=== PATIENT | female | born 1980 | race Caucasian/White ===

== ENCOUNTER 2017-05-14 08:55 | Outpatient (CLI) | payer OTHER ==
--- NOTE | 2017-05-14 09:33 | MMO ---
RIGHT UNILATERAL DIAGNOSTIC MAMMOGRAM: HISTORY: Followup 3-4 mm nodular density upper outer right breast. COMPARISON: 11/10/16 study. FINDINGS: A small nodular density within the right breast was stable. Scattered fibroglandular changes are noted. No suspicious calcifications. IMPRESSION: BI-RADS category 2 - benign findings. POS: [facility]
== END 2017-05-14 08:56 | disposition home or self-care (01) ==
LOC: MAMMO 08:55
PROVIDERS: ATTEND Family Medicine
DX: R92.8 Other abnormal and inconclusive findings on diagnostic imaging of breast (principal)
CPT/HCPCS: G0206-RT

== ENCOUNTER 2019-04-04 10:29 | Outpatient (CLI) | payer OTHER ==
--- NOTE | 2019-04-04 12:16 | ULT ---
OB ULTRASOUND: HISTORY: Assess anatomy. FINDINGS: There is a single viable intrauterine . Gestational age by ultrasound is 19 weeks 0 days. BIOMETRY MEASUREMENTS: BPD: 18 weeks 5 days HC: 18 weeks 6 days AC: 19 weeks 0 days FL: 19 weeks 3 days EFW: 275 g (19 weeks 5 days) HEART RATE: 147 beats per minute PLACENTA: Posterior. PRESENTATION: Vertex. AMNIOTIC FLUID: Adequate. WANG recorded at 11.36 cm. CERVICAL LENGTH: 4.3 cm. anatomy evaluated included the intracranial contents, the four chambered heart, the stomach, th e kidneys, the cord insertion, the bladder, the spine, the lips, the nose, the extremities and the th ree vessel cord. No abnormality identified. IMPRESSION: A 25-hkay-9-day gestation by ultrasound measurement. No abnormality identified. POS: [facility]
== END 2019-04-04 10:30 | disposition home or self-care (01) ==
LOC: BICULT 10:29
PROVIDERS: ATTEND Family Medicine
DX: Z34.82 Encounter for supervision of other normal pregnancy, second trimester (principal); Z3A.19 19 weeks gestation of pregnancy
CPT/HCPCS: 76805

== ENCOUNTER 2019-08-15 05:09 | Inpatient (IN) | payer OTHER ==
[2019-08-15] MEDS ORDERED: Bicitra 30 ML UDCUP PO SCH (05:40)
[2019-08-15] MEDS ORDERED: Ondansetron PF 4 MG/2 ML Vial IVP PRN ×3 (05:40→10:48)
[2019-08-15] MEDS ORDERED: hydrALAZINE 20 MG/ML VIAL SLOW IVP PRN ×2 (05:40→10:48)
[2019-08-15] MEDS ORDERED: Promethazine HCl 25 MG/ML VIAL IM PRN ×2 (05:40→08:56)
[2019-08-15] MEDS ORDERED: CEFAZOLIN 2 GM in Premix Bag 1 BAG IVPB SCH (05:40)
[2019-08-15] MEDS: Lactated Ringer's 1,000 ML IV SCH ×2 (05:50→07:17)
[2019-08-15 05:53] VITALS: BMI 42.2
[2019-08-15 06:04] LABS: Hemoglobin 11.2 g/dL (12.0-16.0); Mean Corpuscular HGB CONC 33.8 g/dL (32.0-36.0); Mean Corpuscular Hemoglobin 27.8 pg (27.0-31.0); Mean Corpuscular Volume 82.3 fL (78.0-98.0); Mean Platelet Volume 11.2 fL (7.4-10.4); Platelet Count 195 thou/uL (130-400); RBC Distribution Width 13.7 % (11.5-14.5); Red Blood Cell (RBC) Count 4.01 mill/uL (4.20-5.40); White Blood Cell (WBC) Count 8.8 thou/uL (4.8-10.8)
[2019-08-15 06:39] LABS: ALT (SGPT) 9 U/L (8-55); AST (SGOT) 13 U/L (5-34); Albumin 3.3 g/dL (3.5-5.0); Alkaline Phosphatase 272 U/L (40-110); Anion Gap 15 mmol/L (10-20); BUN (Urea Nitrogen) 12 mg/dL (7.0-18.7); Bilirubin, Total 0.4 mg/dL (0.2-1.2); Calc. Creatinine Clearance 206 mL/min (70-130); Calcium 8.6 mg/dL (7.8-10.44); Carbon Dioxide 19 mmol/L (22-29); Chloride 106 mmol/L (98-107); Estimated GFR-MDRD Greater than 90; Globulin 3.1 g/dL (2.4-3.5); Glucose 82 mg/dL (70-105); Protein, Total 6.4 g/dL (6.0-8.3); Sodium 136 mmol/L (136-145)
[2019-08-15 06:40] LABS: HBSAg Index 0.23 S/CO (0-0.99); Hep B Surf Ag Non-Reactive S/CO (NonReactive)
[2019-08-15 06:46] LABS: Syphilis Antibody Nonreactive (Nonreactive); Syphilis Antibody Index 0.06 S/CO (<1.00 Non-Reactive)
[2019-08-15] MEDS ORDERED: Ondansetron PF 4 MG/2 ML Vial ONE ×2 (07:25→10:38)
[2019-08-15] MEDS ORDERED: MORPHINE 5 MG/10 ML PF VIAL ONE (07:25)
[2019-08-15] MEDS ORDERED: Oxytocin 10 UNITS/ML VIAL ONE (07:25)
[2019-08-15] MEDS ORDERED: PHENYLEPHRINE-NS 100 MCG/ML 10 ML SYRINGE ONE (07:46)
[2019-08-15] MEDS ORDERED: Lidocaine 1% (PF) 30 ML VIAL ONE (08:25)
[2019-08-15] MEDS ORDERED: Lidocaine 1% PF 5 ML VIAL ONE (08:25)
[2019-08-15] MEDS ORDERED: Methylene Blue 50 MG/10 ML AMPUL FS SCH (08:30)
[2019-08-15] MEDS ORDERED: Ketorolac Tromethamine 30 MG/ML VIAL IVP PRN (08:56)
[2019-08-15] MEDS ORDERED: Promethazine HCl 25 MG SUPP PR PRN (08:56)
[2019-08-15] MEDS ORDERED: Naloxone HCl 0.4 mg/ml Vial IV PRN (08:56)
[2019-08-15] MEDS ORDERED: HYDROmorphone 2 MG/ML VIAL SLOW IVP PRN (08:56)
[2019-08-15] MEDS ORDERED: diphenhydrAMINE 50 MG/ML VIAL IVP PRN (08:56)
[2019-08-15] MEDS ORDERED: Ondansetron HCl/PF 4 MG/2 ML Vial IVP PRN (08:56)
[2019-08-15] MEDS ORDERED: L&D-Morphine 4 MG/ML VIAL SLOW IVP PRN (08:56)
[2019-08-15] MEDS ORDERED: Naloxone HCl 0.4 mg/ml Vial IVP PRN ×2 (08:56)
[2019-08-15] MEDS ORDERED: Ketorolac Tromethamine 30 MG/ML VIAL IVP SCH (09:00)
[2019-08-15] MEDS ORDERED: Communication Order-Pharmacy FS SCH (09:00)
--- NOTE | 2019-08-15 09:33 | OP ---
DATE OF PROCEDURE: 08/15/2019 Relief of SIGHTER, co-surgeon, Dr. Alon Cha. Procedure: assist with Dr Rochelle Denton Location: L&D OR Procedure assist: Primary hysterotomy extension closure and bladder integrity test with back-fill DESCRIPTION OF PROCEDURE: In brief, I arrived from my call shift at 0800. At 0807, I arrived in the OR in Labor and delivery where Dr. Alon Cha, whom I was relieving, was assisting with a . When I arrived, the baby had been delivered and was with the mother. The hysterotomy was closed except for an apparent 3 cm left inferior hysterotomy extension. I scrubbed in at this point to complete the closure. We mobilized the bladder sufficiently inferiorly and I closed the extension in the usual fashion with running nonlocking suture in a two-layer closure. As this was inferior, I elected to check the bladder integrity. Not having indigo carmine in the room, I elected for sterile milk. Four vials of sterile milk (approximately 220 to 240 mL) was instilled into the bladder through the Chandler by back instillation. The bladder dome was noted to be far away from the hysterotomy closure and after confirming that there was no possible violation, the bladder was drained of the sterile milk application. After confirming hemostasis, we decided to place Avitene as a conservative measure just to ensure no leakage of hysterotomy vessels after our abdominal wall closure. After the Avitene was placed, we noticed hemostasis. The abdominal wall was then closed in the usual fashion. It is important to note that I closed my side of the patient's fascia (the patient' s left side as I was on her right) in the usual fashion using 0 Vicryl in a running nonlocking fashion. These independent sutures of the right and left fascia were tied in the midline by Dr. Denton. After fascial closure, I removed myself from the OR table. Job ID: [id number] [facility]
[2019-08-15] MEDS ORDERED: Bisacodyl 10 MG SUPP PR PRN (10:48)
[2019-08-15] MEDS ORDERED: Lanolin Ointment 7 GM TUBE TOP PRN (10:48)
[2019-08-15] MEDS ORDERED: Acetaminophen 325 MG TAB PO PRN (10:48)
[2019-08-15] MEDS ORDERED: diphenhydrAMINE 25 MG CAP PO PRN (10:48)
[2019-08-15] MEDS ORDERED: NS / Oxytocin 40 units/1000ml 1,000 ML ONE (11:26)
[2019-08-15] MEDS: Simethicone Chewable 80 MG TAB PO PRN ×2 (13:06→21:42)
--- NOTE | 2019-08-15 14:40 | OP ---
DATE OF PROCEDURE: 08/15/2019 PREOPERATIVE DIAGNOSIS: 1. Term intrauterine with previous section x2. 2. Chronic hypertension. 3. Gestational diabetes. ASSISTANTS: Dr. Cha substituted and with Dr. Mc. SECOND CARPENTER'S ASSISTANT: Tiny Johnson, MS-3 PROCEDURE PERFORMED: Repeat low transverse section. ANESTHESIA: Spinal anesthetic. DESCRIPTION OF PROCEDURE: Lilia is a 39-year-old white female patient with previous section x2. Taken to the operating room after consents were signed. Spinal anesthetic was placed. The patient was placed in supine position. A wedge was placed under her right flank. The abdomen was prepped and draped in the usual sterile technique. A Pfannenstiel incision was made through the old scar. Skin opened with sharp dissection. Fascia opened with sharp dissection. Peritoneum opened with sharp and blunt dissection. Noted that the abdomen was still with a gravid uterus. There have been moderate scarring on entry into the abdomen. An Bravo O retractor was placed. There were no appreciable adhesions. A low-transverse incision was made on the uterus. Membranes were ruptured. Clear fluid was encountered and a viable female was delivered from vertex presentation without difficulty. breathed and cried spontaneously. Cord was clamped after approximately 30 seconds and cut. was handed to the care of the Neonatology team. Cord blood was obtained and the placenta was delivered with gentle traction and appeared intact. Ring forceps were placed over the hysterotomy edges, noted that the uterine segment was extremely thin on the inferior aspect of the incision as well as a left uterine extension. Once this area was well visualized, the uterus was closed in continuous fashion using 0 Monopril. Noted that due to the extremely thin uterine lower uterine segment, multiple sutures were placed after retracting the bladder flap to note good alignment of uterine anatomy and good hemostasis. Avitene was placed for additional hemostasis, pressure was applied, and 120 mL of sterile milk was instilled into the bladder for backfill to verify integrity of the bladder. This was then drained from the bladder and again examination of the uterine incision noted good hemostasis. An Bravo O retractor had been placed and this was subsequently removed and the fascia was closed in continuous fashion using 0 Vicryl. The subcutaneous tissue was then approximated in a running fashion of 2-0 plain and homero were applied to the skin. The wound VAC was then applied along with a dressing. The patient tolerated the procedure well to go to recovery room in good condition. The baby is a viable female , weight 6 pounds 4 ounces, Apgars 8 at 1 minute, 9 at 5 minutes, and level one nursery without complications. QBL is pending at this time. EBL approximately 700 mL. Job ID: [id number]
[2019-08-15] MEDS: Docusate Calcium (SURFAK) 240 MG CAP PO SCH (21:42)
--- NOTE | 2019-08-15 22:49 | PDOC.EVN ---
Event Note - Event Note Event Note: OBGYN Op Note Clarification: While I dictated 4 vials of sterile milk back filled into the bladder via the thomas, I believe only three were used. See nurse's intraop noted for details for that volume.
[2019-08-15] MEDS: Ferrous Sulfate 325 MG TAB PO SCH (22:58)
[2019-08-16] MEDS: Acetaminophen/Codeine 30-300mg Tablet PO PRN ×2 (01:34→09:30)
[2019-08-16 06:43] LABS: Hemoglobin 9.7 g/dL (12.0-16.0); Mean Corpuscular HGB CONC 33.9 g/dL (32.0-36.0); Mean Corpuscular Hemoglobin 28.5 pg (27.0-31.0); Mean Corpuscular Volume 84.1 fL (78.0-98.0); Mean Platelet Volume 11.1 fL (7.4-10.4); Platelet Count 149 thou/uL (130-400); RBC Distribution Width 13.6 % (11.5-14.5); Red Blood Cell (RBC) Count 3.38 mill/uL (4.20-5.40); White Blood Cell (WBC) Count 8.8 thou/uL (4.8-10.8)
[2019-08-16] MEDS ORDERED: Sodium Chloride 0.9% 0 ML ONE (07:52)
[2019-08-16] MEDS: Ibuprofen 800 MG TAB PO SCH ×3 (07:58→21:52)
[2019-08-16] MEDS: Simethicone Chewable 80 MG TAB PO PRN ×2 (09:30→21:53)
[2019-08-16] MEDS: Ferrous Sulfate 325 MG TAB PO SCH ×2 (09:30→21:52)
[2019-08-16] MEDS: Docusate Calcium (SURFAK) 240 MG CAP PO SCH ×2 (09:30→21:52)
[2019-08-16] MEDS: Prenatal Vitamin 1 TAB PO SCH (10:19)
[2019-08-16] MEDS: HYDROcodone/Acetaminophen 5/325 mg Tablet PO PRN (22:04)
[2019-08-17] MEDS: Ibuprofen 800 MG TAB PO SCH ×3 (04:29→22:22)
[2019-08-17] MEDS: HYDROcodone/Acetaminophen 5/325 mg Tablet PO PRN ×3 (04:30→23:16)
[2019-08-17] MEDS: Ferrous Sulfate 325 MG TAB PO SCH ×2 (09:26→20:30)
[2019-08-17] MEDS: Simethicone Chewable 80 MG TAB PO PRN ×3 (09:26→20:30)
[2019-08-17] MEDS: Prenatal Vitamin 1 TAB PO SCH (09:26)
[2019-08-17] MEDS: Docusate Calcium (SURFAK) 240 MG CAP PO SCH ×2 (09:26→20:31)
[2019-08-17 20:39] VITALS: TEMP 98.7
[2019-08-18] MEDS: HYDROcodone/Acetaminophen 5/325 mg Tablet PO PRN (05:58)
[2019-08-18] MEDS: Ibuprofen 800 MG TAB PO SCH (05:58)
[2019-08-18 08:38] VITALS: BP 143/72
[2019-08-18] MEDS: Prenatal Vitamin 1 TAB PO SCH (09:55)
[2019-08-18] MEDS: Docusate Calcium (SURFAK) 240 MG CAP PO SCH (09:55)
[2019-08-18] MEDS: Ferrous Sulfate 325 MG TAB PO SCH (09:56)
== END 2019-08-18 13:30 | disposition home or self-care (01) | DRG 787 ==
LOC: L&D 05:09 → 3SW 11:07
PROVIDERS: ADMIT Family Medicine; ATTEND Family Medicine
PROC: 10D00Z1 Extraction of Products of Conception, Low, Open Approach (ICD-10-PCS; principal; 2019-08-15)
PROC: 0UT90ZZ Resection of Uterus, Open Approach (ICD-10-PCS; 2019-08-15)
DX: O34.211 Maternal care for low transverse scar from previous cesarean delivery (principal); O10.02 Pre-existing essential hypertension complicating childbirth; O24.429 Gestational diabetes mellitus in childbirth, unspecified control; Z3A.38 38 weeks gestation of pregnancy; Z37.0 Single live birth; Z88.8 Allergy status to other drugs, medicaments and biological substances
CPT/HCPCS: 36415; 80053; 85027; 86780; 86850; 86900; 86901; 87340; J0690; J1200; J2001; J2274; J2310; J2405; J2550; J2590

== ENCOUNTER 2020-08-27 16:21 | Outpatient (CLI) | payer BC, MEDICAID ==
--- NOTE | 2020-08-27 16:59 | RAD ---
RIGHT FOOT THREE VIEWS: 08/27/20 HISTORY: Injury to right foot and ankle. Fell and twisted her foot. There is an avulsive type injury off the dorsal side of the navicular at the talonavicular joint whic h could be acute. There are calcaneal spurs noted. No other abnormalities. IMPRESSION: Avulsion fracture from the dorsum of the navicular. POS: [facility]
--- NOTE | 2020-08-27 17:04 | RAD ---
RIGHT ANKLE THREE VIEWS: 08/27/20 HISTORY: Ankle injury. There is avulsive type injury from the dorsum of the navicular at the talonavicular joint which coul d be acute. No ankle joint effusion is seen. Prominent calcaneal spurs are present. IMPRESSION: Avulsion fracture from the dorsum of the navicular. POS: [facility]
== END 2020-08-27 16:22 | disposition home or self-care (01) ==
LOC: BICRAD 16:21
PROVIDERS: ATTEND Family Medicine
DX: S99.911A Unspecified injury of right ankle, initial encounter (principal); S92.251A Displaced fracture of navicular [scaphoid] of right foot, initial encounter for closed fracture

== ENCOUNTER 2021-02-03 06:19 | Day surgery (SDC) | payer OTHER ==
[2021-01-31 09:54] VITALS: BMI 48.0
[2021-02-03] MEDS ORDERED: Lidocaine Viscous Sol 2% 15 ml UD Cup ONE (07:44)
[2021-02-03] MEDS ORDERED: PROPOFOL 200 MG/20 ML VIAL ONE (08:04)
[2021-02-03] MEDS ORDERED: Lidocaine 1% PF 5 ML VIAL ONE (08:04)
== END 2021-02-03 09:10 | disposition home or self-care (01) ==
LOC: SDC 06:19
PROVIDERS: ATTEND Internal Medicine
PROC: 0DB68ZX Excision of Stomach, Via Natural or Artificial Opening Endoscopic, Diagnostic (ICD-10-PCS; principal; 2021-02-03)
DX: K31.89 Other diseases of stomach and duodenum (principal); K21.9 Gastro-esophageal reflux disease without esophagitis; R13.10 Dysphagia, unspecified; M19.90 Unspecified osteoarthritis, unspecified site; E66.9 Obesity, unspecified; Z68.42 Body mass index [BMI] 45.0-49.9, adult; Z79.899 Other long term (current) drug therapy; Z88.1 Allergy status to other antibiotic agents; Z98.84 Bariatric surgery status
CPT/HCPCS: 88305; 88312; J2704

== ENCOUNTER 2021-05-14 12:15 | Inpatient (IN) | payer OTHER, BC ==
[2021-05-19] MEDS ORDERED: ceFAZolin 2 GM/DEX 5% 100 ML BAG ONE (07:49)
[2021-05-19] MEDS ORDERED: Heparin 5,000 UNITS/ML VIAL ONE (07:49)
[2021-05-19] MEDS ORDERED: Lidocaine 1% w/Epinephrine 1:100K 20 ML VIAL ONE (08:38)
[2021-05-19] MEDS ORDERED: Bupivacaine 0.25% HCL 30 ML VIAL ONE (08:38)
[2021-05-19] MEDS ORDERED: Fentanyl 100 MCG/2 ML VIAL ONE ×4 (08:41→12:52)
[2021-05-19] MEDS ORDERED: PHENYLEPHRINE-NS 100 MCG/ML 10 ML SYRINGE ONE (08:55)
[2021-05-19] MEDS ORDERED: Succinylcholine 200 MG/10 ml SYRINGE FS ONE (08:55)
[2021-05-19] MEDS ORDERED: Lidocaine 1% PF 5 ML VIAL ONE (08:55)
[2021-05-19] MEDS ORDERED: Glycopyrrolate 0.2 MG/ML 5 ML SYRINGE ONE (08:55)
[2021-05-19] MEDS ORDERED: Dexamethasone 20 MG/5 ML VIAL ONE (08:55)
[2021-05-19] MEDS ORDERED: Rocuronium Bromide 10 MG/ML (10ML VIAL) ONE (08:55)
[2021-05-19] MEDS ORDERED: Ondansetron PF 4 MG/2 ML Vial ONE (08:55)
[2021-05-19] MEDS ORDERED: PROPOFOL 200 MG/20 ML VIAL ONE (08:55)
[2021-05-19] MEDS ORDERED: Promethazine HCl 25 MG/ML VIAL IM PRN ×2 (12:16→12:29)
[2021-05-19] MEDS ORDERED: Hydrocodone-Acetamin 15 ML UDCUP PO PRN (12:16)
[2021-05-19] MEDS ORDERED: Dextrose 50% Abboject 50 ML SYRINGE SLOW IVP PRN (12:16)
[2021-05-19] MEDS ORDERED: diphenhydrAMINE 50 MG/ML VIAL IVP PRN ×2 (12:16→12:29)
[2021-05-19] MEDS ORDERED: Ondansetron PF 4 MG/2 ML Vial IVP PRN ×2 (12:16→12:29)
[2021-05-19] MEDS ORDERED: Dextrose 5% in Water 1,000 ML IV PRN (12:16)
[2021-05-19] MEDS ORDERED: Naloxone HCl 0.4 mg/ml Vial IV PRN (12:29)
[2021-05-19] MEDS ORDERED: diphenhydrAMINE 25 MG CAP PO PRN (12:29)
[2021-05-19] MEDS ORDERED: diphenhydrAMINE 50 MG/ML VIAL IM PRN (12:29)
[2021-05-19] MEDS ORDERED: Zolpidem Tartrate 5 MG TAB PO PRN (12:29)
[2021-05-19] MEDS ORDERED: fentaNYL Citrate/PF 2,000 MCG in Sodium Chloride 0.9% 60 ML IV PRN (12:29)
[2021-05-19] MEDS ORDERED: [UNRECOGNIZED DRUG - REMARK] FS SCH (12:30)
[2021-05-19] MEDS: D5 1/2 NS w/20 mEq KCL 1,000 ML IV SCH ×2 (15:24→23:25)
[2021-05-19] MEDS: Ketorolac Tromethamine 30 MG/ML VIAL IVP SCH ×2 (15:25→20:54)
[2021-05-19] MEDS ORDERED: ceFAZolin 2 GM/Dextrose 50 ML 2 GM in Premix Bag 1 BAG IVPB SCH (17:00)
[2021-05-19] MEDS: ceFAZolin Sodium/D5W 2 GM in Premix Bag 1 BAG IVPB SCH (17:23)
[2021-05-20] MEDS ORDERED: CEFAZOLIN 2 GM, Admixture Fee 1 EACH in Sodium Chloride 0.9% 100 ML IVPB SCH ×2 (02:30→11:30)
[2021-05-20] MEDS: Ketorolac Tromethamine 30 MG/ML VIAL IVP SCH ×4 (02:33→20:44)
[2021-05-20] MEDS: ceFAZolin Sodium/D5W 2 GM in Premix Bag 1 BAG IVPB SCH (02:34)
[2021-05-20 04:43] LABS: Hemoglobin 10.4 g/dL (12.0-16.0); Mean Corpuscular HGB CONC 30.5 g/dL (32.0-36.0); Mean Corpuscular Hemoglobin 21.5 pg (27.0-31.0); Mean Corpuscular Volume 70.6 fL (78.0-98.0); Mean Platelet Volume 9.4 fL (7.4-10.4); Platelet Count 326 thou/uL (130-400); RBC Distribution Width 15.8 % (11.5-14.5); Red Blood Cell (RBC) Count 4.82 mill/uL (4.20-5.40); White Blood Cell (WBC) Count 11.5 thou/uL (4.8-10.8)
[2021-05-20 04:52] LABS: Anion Gap 13 mmol/L (10-20); BUN (Urea Nitrogen) 11 mg/dL (7.0-18.7); Calc. Creatinine Clearance 180 mL/min (70-130); Calcium 8.1 mg/dL (7.8-10.44); Carbon Dioxide 21 mmol/L (22-29); Chloride 104 mmol/L (98-107); Glucose 170 mg/dL (70-105); Potassium 3.5 mmol/L (3.5-5.1); Sodium 134 mmol/L (136-145)
[2021-05-20 05:16] LABS: Band 38 % (5-11); Lymphocytes 13 % (21-51); MDiff Complete? YES; Monocytes 3 % (0-10); Neutrophil 46 % (42-75)
[2021-05-20] MEDS: D5 1/2 NS w/20 mEq KCL 1,000 ML IV SCH ×3 (08:59→20:44)
[2021-05-20] MEDS ORDERED: Sodium Chloride 0.9% 1,000 ML IV SCH ×2 (09:30→20:15)
[2021-05-20] MEDS: Pantoprazole 40 MG VIAL IVP SCH (10:45)
[2021-05-20] MEDS: Enoxaparin Sodium 40 MG/0.4 ML SYRINGE SC SCH (10:48)
[2021-05-20] MEDS ORDERED: Fentanyl 100 MCG/2 ML VIAL ONE (10:59)
[2021-05-20] MEDS ORDERED: Bupivacaine 0.25% HCL 30 ML VIAL ONE (11:08)
[2021-05-20] MEDS ORDERED: Lidocaine 1% w/Epinephrine 1:100K 20 ML VIAL ONE (11:08)
[2021-05-20] MEDS ORDERED: ceFAZolin 2 GM/DEX 5% 100 ML BAG ONE (11:31)
[2021-05-20] MEDS ORDERED: Ondansetron PF 4 MG/2 ML Vial ONE (11:56)
[2021-05-20] MEDS ORDERED: PHENYLEPHRINE-NS 100 MCG/ML 10 ML SYRINGE ONE ×2 (11:56→15:06)
[2021-05-20] MEDS ORDERED: Dexamethasone 20 MG/5 ML VIAL ONE (11:56)
[2021-05-20] MEDS ORDERED: Vecuronium 10 MG VIAL ONE (11:56)
[2021-05-20] MEDS ORDERED: PROPOFOL 200 MG/20 ML VIAL ONE (11:56)
[2021-05-20] MEDS ORDERED: Rocuronium Bromide 10 MG/ML (10ML VIAL) ONE (11:56)
[2021-05-20] MEDS ORDERED: Iopamidol-370 76% 500 ML 1 ML ONE (12:50)
[2021-05-20] MEDS ORDERED: GASTROGRAFIN 30 ML BOT ONE (13:08)
[2021-05-20] MEDS ORDERED: Sodium Chloride 0.9% 30 ML ONE (13:30)
[2021-05-20] MEDS ORDERED: Dexmedetomidine 200 MCG/2 ML VIAL ONE (14:08)
[2021-05-20] MEDS ORDERED: Albumin 5% 500 ML ONE (14:47)
[2021-05-20] MEDS ORDERED: Midazolam HCl 2 mg/2 ml Vial ONE (15:06)
[2021-05-20] MEDS ORDERED: Ventilator Sedation Protocol 1 EACH FS ONE (15:47)
[2021-05-20] MEDS ORDERED: DC PCA Order Set 1 EACH FS SCH (15:49)
[2021-05-20] MEDS ORDERED: Morphine 10 MG/ML VIAL SLOW IVP PRN (15:49)
[2021-05-20 16:13] LABS: ALV-art Gradient 233.675 mmHg (0-20); Actual Bicarbonate (HCO3a) 19.5 mEq/L (22-28); CO2 Tension 43.3 mmHg (35.0-45.0); Calcium, Ionized (arterial) 1.04 mmol/L (1.12-1.30); Carboxyhemoglobin (COHb) 1.1 gm% (0.0-3.0); Hemoglobin (Hb) 10.1 g/dL (12.0-16.0); O2 Tension (PaO2), arterial 68.7 mmHg (80.0-100.0); Puncture Site RRA; pH, Arterial 7.27 (7.35-7.45)
[2021-05-20] MEDS ORDERED: Morphine 4 MG/ML VIAL SLOW IVP PRN ×2 (16:19→16:45)
[2021-05-20] MEDS ORDERED: Propofol BOLUS 1,000 MG/100 ML VIAL IV PRN (16:45)
[2021-05-20] MEDS ORDERED: Morphine 2 MG/ML VIAL SLOW IVP PRN (16:45)
[2021-05-20] MEDS ORDERED: Piperacillin/Tazobactam 3.375 GM in Sodium Chloride 0.9% 100 ML IVPB SCH ×2 (16:45→18:00)
[2021-05-20] MEDS ORDERED: Lorazepam 2 MG/ML VIAL SLOW IVP PRN (16:45)
[2021-05-20] MEDS ORDERED: Propofol 1,000 MG/100 ML VIAL IV PRN (16:45)
[2021-05-20] MEDS ORDERED: DISCONTINUE PREVIOUS NARCOTIC PAIN MEDICATIONS AND BENZODIAZEPINES FS SCH (16:45)
[2021-05-20] MEDS ORDERED: Fentanyl BOLUS 250 ML IVPB PRN (16:45)
[2021-05-20] MEDS ORDERED: Fentanyl CADD 100 ML IV SCH (16:45)
[2021-05-20 17:24] LABS: Hemoglobin 9.3 g/dL (12.0-16.0); Mean Corpuscular HGB CONC 30.4 g/dL (32.0-36.0); Mean Corpuscular Volume 72.5 fL (78.0-98.0); Mean Platelet Volume 9.4 fL (7.4-10.4); Platelet Count 296 thou/uL (130-400); RBC Distribution Width 15.9 % (11.5-14.5); Red Blood Cell (RBC) Count 4.21 mill/uL (4.20-5.40)
[2021-05-20 17:42] LABS: Anisocytosis SLIGHT = 6-15 cells (100X) (0-5/hpf); Band 66 % (5-11); Lymphocytes 5 % (21-51); MDiff Complete? YES; Monocytes 3 % (0-10); Neutrophil 26 % (42-75); Platelet Morphology Comment Appears Adequate
[2021-05-20] MEDS: Piperacillin/Tazobactam 3.375 GM in Sodium Chloride 0.9% 100 ML IVPB SCH (20:45)
[2021-05-21] MEDS: D5 1/2 NS w/20 mEq KCL 1,000 ML IV SCH ×3 (00:26→16:28)
[2021-05-21] MEDS: Ketorolac Tromethamine 30 MG/ML VIAL IVP SCH ×4 (03:25→21:05)
[2021-05-21 04:21] LABS: #Lymphocytes 0.7 thou/uL (1.20-3.40); #Monocytes 0.4 thou/uL (0.11-0.59); #Neutrophils 9.8 thou/uL (1.40-6.50); %Lymphocytes 6.5 % (21.0-51.0); %Monocytes 3.5 % (0.0-10.0); Mean Corpuscular HGB CONC 30.4 g/dL (32.0-36.0); Mean Corpuscular Volume 72.2 fL (78.0-98.0); Mean Platelet Volume 9.6 fL (7.4-10.4); Platelet Count 285 thou/uL (130-400); RBC Distribution Width 15.9 % (11.5-14.5); Red Blood Cell (RBC) Count 4.08 mill/uL (4.20-5.40); White Blood Cell (WBC) Count 10.9 thou/uL (4.8-10.8)
[2021-05-21 04:41] LABS: ALT (SGPT) 70 U/L (8-55); AST (SGOT) 64 U/L (5-34); Albumin 2.8 g/dL (3.5-5.0); Alkaline Phosphatase 122 U/L (40-110); Anion Gap 11 mmol/L (10-20); BUN (Urea Nitrogen) 15 mg/dL (7.0-18.7); Calc. Creatinine Clearance 156 mL/min (70-130); Calcium 7.6 mg/dL (7.8-10.44); Carbon Dioxide 21 mmol/L (22-29); Chloride 105 mmol/L (98-107); Globulin 3.1 g/dL (2.4-3.5); Glucose 170 mg/dL (70-105); Protein, Total 5.9 g/dL (6.0-8.3); Sodium 133 mmol/L (136-145)
[2021-05-21] MEDS: Piperacillin/Tazobactam 3.375 GM in Sodium Chloride 0.9% 100 ML IVPB SCH ×3 (04:59→21:08)
[2021-05-21 07:46] LABS: Actual Bicarbonate (HCO3a) 17.8 mEq/L (22-28); Base Excess (BEa) -6.1 mEq/L (-2.0 to +3.0); CO2 Tension 29.6 mmHg (35.0-45.0); Calcium, Ionized (arterial) 0.99 mmol/L (1.12-1.30); Carboxyhemoglobin (COHb) 0.7 gm% (0.0-3.0); Hemoglobin (Hb) 9.6 g/dL (12.0-16.0); O2 Tension (PaO2), arterial 114.2 mmHg (80.0-100.0); Potassium - ABG Lab 4.02 mmol/L (3.70-5.30)
[2021-05-21 07:59] LABS: Puncture Site LBA
[2021-05-21] MEDS: Enoxaparin Sodium 40 MG/0.4 ML SYRINGE SC SCH ×2 (08:39→09:02)
[2021-05-21] MEDS ORDERED: Sodium Chloride 0.9% 1,000 ML IV SCH (09:30)
[2021-05-21] MEDS: Pantoprazole 40 MG VIAL IVP SCH (11:20)
[2021-05-21] MEDS: Morphine 4 MG/ML VIAL SLOW IVP PRN (14:15)
[2021-05-21] MEDS ORDERED: Lorazepam 2 MG/ML VIAL SLOW IVP PRN (15:36)
[2021-05-21 16:58] LABS: Actual Bicarbonate (HCO3a) 19.3 mEq/L (22-28); Base Excess (BEa) -5.4 mEq/L (-2.0 to +3.0); CO2 Tension 34.6 mmHg (35.0-45.0); Calcium, Ionized (arterial) 0.97 mmol/L (1.12-1.30); Carboxyhemoglobin (COHb) 0.8 gm% (0.0-3.0); Hemoglobin (Hb) 10.2 g/dL (12.0-16.0); O2 Tension (PaO2), arterial 53.2 mmHg (80.0-100.0); Puncture Site LBA; pH, Arterial 7.36 (7.35-7.45)
[2021-05-21] MEDS ORDERED: Furosemide 40 MG/4 ML VIAL SLOW IVP SCH (17:00)
[2021-05-21] MEDS: Lorazepam 2 MG/ML VIAL SLOW IVP PRN (21:09)
[2021-05-21] MEDS ORDERED: Haloperidol Lactate 5 MG/ML VIAL SLOW IVP PRN (21:52)
[2021-05-21] MEDS ORDERED: Haloperidol Lactate 5 MG/ML VIAL SLOW IVP SCH (22:00)
[2021-05-21] MEDS: Dexmedetomidine 1,000 MCG in Sodium Chloride 0.9% 250 ML 240 ML IVPB SCH (23:17)
[2021-05-22] MEDS: Ketorolac Tromethamine 30 MG/ML VIAL IVP SCH ×4 (03:14→21:59)
[2021-05-22 04:14] LABS: Hemoglobin 9.1 g/dL (12.0-16.0); Mean Corpuscular HGB CONC 30.3 g/dL (32.0-36.0); Mean Corpuscular Hemoglobin 21.9 pg (27.0-31.0); Mean Corpuscular Volume 72.2 fL (78.0-98.0); Mean Platelet Volume 9.9 fL (7.4-10.4); Platelet Count 285 thou/uL (130-400); RBC Distribution Width 15.8 % (11.5-14.5); Red Blood Cell (RBC) Count 4.15 mill/uL (4.20-5.40); White Blood Cell (WBC) Count 9.7 thou/uL (4.8-10.8)
[2021-05-22 04:26] LABS: ALT (SGPT) 43 U/L (8-55); AST (SGOT) 37 U/L (5-34); Albumin 2.5 g/dL (3.5-5.0); Alkaline Phosphatase 130 U/L (40-110); Anion Gap 10 mmol/L (10-20); BUN (Urea Nitrogen) 23 mg/dL (7.0-18.7); Bilirubin, Total 0.9 mg/dL (0.2-1.2); Calc. Creatinine Clearance 111 mL/min (70-130); Calcium 7.1 mg/dL (7.8-10.44); Carbon Dioxide 21 mmol/L (22-29); Chloride 107 mmol/L (98-107); Globulin 3.1 g/dL (2.4-3.5); Glucose 114 mg/dL (70-105); Magnesium 1.3 mg/dL (1.6-2.6); Phosphorus 2.1 mg/dL (2.3-4.7); Potassium 4.2 mmol/L (3.5-5.1); Protein, Total 5.6 g/dL (6.0-8.3); Sodium 134 mmol/L (136-145)
[2021-05-22] MEDS: D5 1/2 NS w/20 mEq KCL 1,000 ML IV SCH ×3 (04:30→16:42)
[2021-05-22 04:40] LABS: Band 43 % (5-11); Eosinophils 1 % (0-10); Lymphocytes 7 % (21-51); MDiff Complete? YES; Microcytosis SLIGHT = 6-15 cells (100X) (0-5/hpf); Monocytes 3 % (0-10); Neutrophil 46 % (42-75)
[2021-05-22] MEDS: Piperacillin/Tazobactam 3.375 GM in Sodium Chloride 0.9% 100 ML IVPB SCH ×3 (04:55→21:59)
[2021-05-22] MEDS: Enoxaparin Sodium 40 MG/0.4 ML SYRINGE SC SCH (08:56)
[2021-05-22] MEDS: Lorazepam 2 MG/ML VIAL SLOW IVP PRN (08:57)
[2021-05-22] MEDS ORDERED: Vancomycin HCl 1.25 GM in Sodium Chloride 0.9% 250 ML 250 ML IVPB SCH ×2 (10:00→11:45)
[2021-05-22] MEDS: Pantoprazole 40 MG VIAL IVP SCH (10:01)
[2021-05-22] MEDS: Morphine 4 MG/ML VIAL SLOW IVP PRN (12:43)
[2021-05-22] MEDS: Albumin 25% 25 GM/100 ML BOT IVPB SCH ×3 (12:46→16:42)
[2021-05-22] MEDS: Dexmedetomidine 1,000 MCG in Sodium Chloride 0.9% 250 ML 240 ML IVPB SCH (13:51)
[2021-05-22] MEDS: Multivitamins, Adult 10 ML, TRACE ELEMENT CONCENTRATE 1 ML in D15W-AA 5% with Lytes 2,0... IV SCH (15:31)
[2021-05-22 19:34] LABS: INR-International Normal Ratio 1.3; PTT 39.5 sec (22.9-36.1); Prothrombin Time 16.1 sec (12.0-14.7)
[2021-05-22 19:49] LABS: Cholesterol 97 mg/dl (< 200 Desired); HDL Cholesterol Less than 8 mg/dL (>60 Neg Risk); Triglycerides 250 mg/dL (Less than 150)
[2021-05-22 23:45] LABS: Vancomycin, Random 27.9 ug/mL (See Comment)
[2021-05-23] MEDS: Morphine 4 MG/ML VIAL SLOW IVP PRN (00:24)
[2021-05-23] MEDS: Dexmedetomidine 1,000 MCG in Sodium Chloride 0.9% 250 ML 240 ML IVPB SCH ×3 (00:35→19:10)
[2021-05-23] MEDS: D5 1/2 NS w/20 mEq KCL 1,000 ML IV SCH (02:00)
[2021-05-23] MEDS: Ketorolac Tromethamine 30 MG/ML VIAL IVP SCH (03:34)
[2021-05-23 04:11] LABS: INR-International Normal Ratio 1.2; PTT 35.1 sec (22.9-36.1); Prothrombin Time 15.7 sec (12.0-14.7)
[2021-05-23 04:17] LABS: Band 21 % (5-11); Eosinophils 1 % (0-10); Hemoglobin 7.8 g/dL (12.0-16.0); Hypochromia SLIGHT = 6-15 cells (100X) (0-5/hpf); Lymphocytes 15 % (21-51); MDiff Complete? YES; Mean Corpuscular HGB CONC 30.6 g/dL (32.0-36.0); Mean Corpuscular Hemoglobin 22.1 pg (27.0-31.0); Mean Corpuscular Volume 72.3 fL (78.0-98.0); Mean Platelet Volume 9.5 fL (7.4-10.4); Microcytosis SLIGHT = 6-15 cells (100X) (0-5/hpf); Monocytes 4 % (0-10); Neutrophil 59 % (42-75); Platelet Count 233 thou/uL (130-400); Platelet Morphology Comment Appears Adequate; RBC Distribution Width 15.5 % (11.5-14.5); Red Blood Cell (RBC) Count 3.52 mill/uL (4.20-5.40); White Blood Cell (WBC) Count 6.3 thou/uL (4.8-10.8)
[2021-05-23 04:39] LABS: ALT (SGPT) 23 U/L (8-55); AST (SGOT) 25 U/L (5-34); Albumin 2.8 g/dL (3.5-5.0); Alkaline Phosphatase 147 U/L (40-110); Anion Gap 12 mmol/L (10-20); BUN (Urea Nitrogen) 46 mg/dL (7.0-18.7); Bilirubin, Total 1.3 mg/dL (0.2-1.2); Calc. Creatinine Clearance 56 mL/min (70-130); Calcium 7.2 mg/dL (7.8-10.44); Carbon Dioxide 19 mmol/L (22-29); Cardiac Risk TEST NOT PERFORMED (Less than 4.5); Chloride 105 mmol/L (98-107); Cholesterol 103 mg/dl (< 200 Desired); Globulin 2.9 g/dL (2.4-3.5); Glucose 145 mg/dL (70-105); HDL Cholesterol Less than 8 mg/dL (>60 Neg Risk); Magnesium 1.5 mg/dL (1.6-2.6); Phosphorus 2.2 mg/dL (2.3-4.7); Protein, Total 5.7 g/dL (6.0-8.3); Sodium 132 mmol/L (136-145); Triglycerides 256 mg/dL (Less than 150)
[2021-05-23] MEDS: Piperacillin/Tazobactam 3.375 GM in Sodium Chloride 0.9% 100 ML IVPB SCH ×3 (04:43→20:37)
[2021-05-23] MEDS ORDERED: Fentanyl 100 MCG/2 ML VIAL SLOW IVP PRN (08:35)
[2021-05-23] MEDS ORDERED: Furosemide 40 MG/4 ML VIAL SLOW IVP SCH ×2 (09:00→21:00)
[2021-05-23] MEDS ORDERED: Sodium Chloride 0.9% 500 ML IV SCH (10:00)
[2021-05-23] MEDS: Magnesium 2 GM/50 ML 2 GM in Premix Bag 1 BAG IVPB SCH (10:06)
[2021-05-23] MEDS: Enoxaparin Sodium 40 MG/0.4 ML SYRINGE SC SCH (10:07)
[2021-05-23] MEDS: Pantoprazole 40 MG VIAL IVP SCH (10:08)
[2021-05-23] MEDS: Norepinephrine 8 MG/0.9% NS 250 ML IVPB SCH (11:36)
[2021-05-23 13:05] LABS: Phosphorus 2.3 mg/dL (2.3-4.7)
[2021-05-23 13:06] LABS: Anion Gap 14 mmol/L (10-20); BUN (Urea Nitrogen) 48 mg/dL (7.0-18.7); Calc. Creatinine Clearance 47 mL/min (70-130); Calcium 7.2 mg/dL (7.8-10.44); Carbon Dioxide 16 mmol/L (22-29); Chloride 106 mmol/L (98-107); Glucose 139 mg/dL (70-105); Potassium 4.1 mmol/L (3.5-5.1); Sodium 132 mmol/L (136-145)
[2021-05-23] MEDS: Fat Emulsion 250 ML IVPB SCH (15:34)
[2021-05-23] MEDS: Multivitamins, Adult 10 ML, TRACE ELEMENT CONCENTRATE 1 ML in D15W-AA 5% with Lytes 2,0... IV SCH (15:35)
[2021-05-23] MEDS: Lorazepam 2 MG/ML VIAL SLOW IVP PRN (22:28)
[2021-05-24] MEDS: Dexmedetomidine 1,000 MCG in Sodium Chloride 0.9% 250 ML 240 ML IVPB SCH ×2 (02:07→11:42)
[2021-05-24 04:36] LABS: INR-International Normal Ratio 1.2; Prothrombin Time 15.1 sec (12.0-14.7)
[2021-05-24 04:37] LABS: PTT 31.7 sec (22.9-36.1)
[2021-05-24 04:49] LABS: ALT (SGPT) 17 U/L (8-55); AST (SGOT) 22 U/L (5-34); Albumin 2.5 g/dL (3.5-5.0); Alkaline Phosphatase 126 U/L (40-110); Anion Gap 12 mmol/L (10-20); BUN (Urea Nitrogen) 61 mg/dL (7.0-18.7); Calc. Creatinine Clearance 36 mL/min (70-130); Calcium 7.7 mg/dL (7.8-10.44); Carbon Dioxide 18 mmol/L (22-29); Chloride 106 mmol/L (98-107); Cholesterol 113 mg/dl (< 200 Desired); Globulin 2.9 g/dL (2.4-3.5); Glucose 199 mg/dL (70-105); HDL Cholesterol Less than 8 mg/dL (>60 Neg Risk); Magnesium 2.2 mg/dL (1.6-2.6); Phosphorus 2.6 mg/dL (2.3-4.7); Protein, Total 5.4 g/dL (6.0-8.3); Sodium 132 mmol/L (136-145); Triglycerides 337 mg/dL (Less than 150)
[2021-05-24 04:52] LABS: Cardiac Risk TEST NOT PERFORMED (Less than 4.5)
[2021-05-24 05:06] LABS: Anisocytosis SLIGHT = 6-15 cells (100X) (0-5/hpf); Band 16 % (5-11); Burr Cells SLIGHT = 2-5 cells (100X) (0-1/hpf); Elliptocytes SLIGHT = 2-5 cells (100X) (0-1/hpf); Eosinophils 9 % (0-10); Hemoglobin 8.1 g/dL (12.0-16.0); Hypochromia SLIGHT = 6-15 cells (100X) (0-5/hpf); Lymphocytes 10 % (21-51); MDiff Complete? YES; Mean Corpuscular Hemoglobin 22.2 pg (27.0-31.0); Mean Corpuscular Volume 71.8 fL (78.0-98.0); Mean Platelet Volume 9.4 fL (7.4-10.4); Microcytosis SLIGHT = 6-15 cells (100X) (0-5/hpf); Monocytes 6 % (0-10); Neutrophil 59 % (42-75); Platelet Count 269 thou/uL (130-400); Platelet Morphology Comment Appears Adequate; Polychromasia SLIGHT = 2-3 cells (100X) (0-2/hpf); Red Blood Cell (RBC) Count 3.64 mill/uL (4.20-5.40); White Blood Cell (WBC) Count 10.3 thou/uL (4.8-10.8)
[2021-05-24] MEDS: Piperacillin/Tazobactam 3.375 GM in Sodium Chloride 0.9% 100 ML IVPB SCH ×3 (05:35→21:43)
[2021-05-24] MEDS: Magnesium 2 GM/50 ML 2 GM in Premix Bag 1 BAG IVPB SCH (09:15)
[2021-05-24] MEDS: Heparin 5,000 UNITS/ML VIAL SC SCH ×3 (09:16→20:46)
[2021-05-24] MEDS: Pantoprazole 40 MG VIAL IVP SCH (09:17)
[2021-05-24] MEDS ORDERED: Sodium Chloride 0.9% 1,000 ML IV SCH (10:00)
[2021-05-24] MEDS ORDERED: PROPOFOL 200 MG/20 ML VIAL ONE (11:57)
[2021-05-24] MEDS ORDERED: Rocuronium Bromide 10 MG/ML (10ML VIAL) ONE (11:57)
[2021-05-24] MEDS ORDERED: Dextrose 50% Abboject 50 ML SYRINGE IVP PRN (13:45)
[2021-05-24] MEDS ORDERED: Dextrose 5% in Water 1,000 ML IV PRN (13:45)
[2021-05-24] MEDS: Multivitamins, Adult 10 ML, TRACE ELEMENT CONCENTRATE 1 ML in D15W-AA 5% with Lytes 2,0... IV SCH (14:04)
[2021-05-24] MEDS ORDERED: Furosemide 40 MG/4 ML VIAL SLOW IVP SCH (14:15)
[2021-05-24] MEDS: Insulin Regular 300 UNITS/3 ML VIAL SC PRN ×2 (14:41→22:10)
[2021-05-24] MEDS: Norepinephrine 8 MG/0.9% NS 250 ML IVPB SCH (16:03)
[2021-05-24 19:28] LABS: Hemoglobin 7.8 g/dL (12.0-16.0); Mean Corpuscular HGB CONC 30.8 g/dL (32.0-36.0); Mean Corpuscular Hemoglobin 22.1 pg (27.0-31.0); Mean Corpuscular Volume 71.9 fL (78.0-98.0); Mean Platelet Volume 9.4 fL (7.4-10.4); Platelet Count 276 thou/uL (130-400); RBC Distribution Width 15.9 % (11.5-14.5); Red Blood Cell (RBC) Count 3.53 mill/uL (4.20-5.40); White Blood Cell (WBC) Count 12.8 thou/uL (4.8-10.8)
[2021-05-24 19:39] LABS: #Eosinphils 0.5 thou/uL (0.0-0.7); #Lymphocytes 0.8 thou/uL (1.20-3.40); #Monocytes 1.1 thou/uL (0.11-0.59); #Neutrophils 10.4 thou/uL (1.40-6.50); %Basophils 0.1 % (0.0-1.0); %Eosinophils 4.6 % (0.0-10.0); %Lymphocytes 6.4 % (21.0-51.0); %Monocytes 8.3 % (0.0-10.0); Band 43 % (5-11); Eosinophils 3 % (0-10); Hypochromia SLIGHT = 6-15 cells (100X) (0-5/hpf); Lymphocytes 4 % (21-51); MDiff Complete? YES; Microcytosis SLIGHT = 6-15 cells (100X) (0-5/hpf); Monocytes 10 % (0-10); Neutrophil 40 % (42-75); Platelet Morphology Comment Appears Adequate
[2021-05-24] MEDS ORDERED: Piperacillin/Tazobactam 3.375 GM VIAL ONE (19:42)
[2021-05-24 19:55] LABS: Anion Gap 15 mmol/L (10-20); BUN (Urea Nitrogen) 68 mg/dL (7.0-18.7); Calc. Creatinine Clearance 32 mL/min (70-130); Calcium 7.8 mg/dL (7.8-10.44); Carbon Dioxide 15 mmol/L (22-29); Chloride 104 mmol/L (98-107); Glucose 201 mg/dL (70-105); Potassium 4.2 mmol/L (3.5-5.1); Sodium 130 mmol/L (136-145)
[2021-05-24] MEDS ORDERED: Propofol 1,000 MG/100 ML VIAL IV ONE (20:19)
[2021-05-24] MEDS ORDERED: Ventilator Sedation Protocol 1 EACH FS ONE (20:25)
[2021-05-24] MEDS ORDERED: DISCONTINUE PREVIOUS NARCOTIC PAIN MEDICATIONS AND BENZODIAZEPINES FS SCH (20:30)
[2021-05-24] MEDS ORDERED: Morphine 2 MG/ML VIAL SLOW IVP PRN (20:30)
[2021-05-24] MEDS ORDERED: Fentanyl BOLUS 250 ML IVPB PRN (20:30)
[2021-05-24] MEDS ORDERED: Propofol BOLUS 1,000 MG/100 ML VIAL IV PRN (20:30)
[2021-05-24] MEDS: Propofol 1,000 MG/100 ML VIAL IV PRN ×2 (20:45→23:58)
[2021-05-24] MEDS ORDERED: PROPOFOL 200 MG/20 ML VIAL IVP SCH (21:00)
[2021-05-24] MEDS ORDERED: Rocuronium Bromide 10 MG/ML (10ML VIAL) IVP SCH (21:00)
[2021-05-24 21:35] LABS: CO2 Tension 30.5 mmHg (35.0-45.0); Calcium, Ionized (arterial) 1.11 mmol/L (1.12-1.30); Carboxyhemoglobin (COHb) 0.2 gm% (0.0-3.0); O2 Tension (PaO2), arterial 81.3 mmHg (80.0-100.0); Potassium - ABG Lab 4.11 mmol/L (3.70-5.30)
[2021-05-24 21:38] LABS: ALV-art Gradient 165.775 mmHg (0-20); Puncture Site RBR; pH, Arterial 7.25 (7.35-7.45)
[2021-05-25] MEDS: Piperacillin/Tazobactam 3.375 GM in Sodium Chloride 0.9% 100 ML IVPB SCH ×2 (00:16→13:00)
[2021-05-25] MEDS: Propofol 1,000 MG/100 ML VIAL IV PRN ×7 (03:04→23:21)
[2021-05-25 04:40] LABS: INR-International Normal Ratio 1.2; PTT 30.5 sec (22.9-36.1); Prothrombin Time 14.9 sec (12.0-14.7)
[2021-05-25 04:47] LABS: Band 44 % (5-11); Eosinophils 3 % (0-10); Hypochromia SLIGHT = 6-15 cells (100X) (0-5/hpf); Lymphocytes 5 % (21-51); MDiff Complete? YES; Mean Corpuscular HGB CONC 30.7 g/dL (32.0-36.0); Mean Corpuscular Hemoglobin 22.1 pg (27.0-31.0); Mean Corpuscular Volume 71.9 fL (78.0-98.0); Mean Platelet Volume 9.4 fL (7.4-10.4); Monocytes 2 % (0-10); Neutrophil 46 % (42-75); Platelet Count 319 thou/uL (130-400); Platelet Morphology Comment Appears Adequate; RBC Distribution Width 16.1 % (11.5-14.5); Red Blood Cell (RBC) Count 3.63 mill/uL (4.20-5.40); White Blood Cell (WBC) Count 17.7 thou/uL (4.8-10.8)
[2021-05-25 06:21] LABS: ALT (SGPT) 14 U/L (8-55); AST (SGOT) 23 U/L (5-34); Albumin 2.4 g/dL (3.5-5.0); Alkaline Phosphatase 136 U/L (40-110); Anion Gap 16 mmol/L (10-20); BUN (Urea Nitrogen) 75 mg/dL (7.0-18.7); Bilirubin, Total 1.4 mg/dL (0.2-1.2); Calc. Creatinine Clearance 30 mL/min (70-130); Carbon Dioxide 15 mmol/L (22-29); Cardiac Risk TEST NOT PERFORMED (Less than 4.5); Chloride 106 mmol/L (98-107); Cholesterol 114 mg/dl (< 200 Desired); Globulin 3.1 g/dL (2.4-3.5); Glucose 189 mg/dL (70-105); HDL Cholesterol Less than 8 mg/dL (>60 Neg Risk); Magnesium 2.6 mg/dL (1.6-2.6); Phosphorus 3.3 mg/dL (2.3-4.7); Protein, Total 5.5 g/dL (6.0-8.3); Sodium 133 mmol/L (136-145); Triglycerides 327 mg/dL (Less than 150)
[2021-05-25] MEDS: Heparin 5,000 UNITS/ML VIAL SC SCH ×3 (08:50→20:11)
[2021-05-25] MEDS: Lorazepam 2 MG/ML VIAL SLOW IVP PRN ×2 (08:52→16:00)
[2021-05-25] MEDS: Pantoprazole 40 MG VIAL IVP SCH (10:09)
[2021-05-25 10:32] LABS: Base Excess -12.4 mEq/L (-2.0 to +3.0); Calcium, Ionized (venous) 1.12 mmol/L (1.16-1.32); Chloride (VBG) 103 mmol/L (98-106); Hemoglobin (Hb) 8.5 g/dL (11.7-15.5); Potassium (VBG) 4.09 mmol/L (3.70-5.30); Sodium 130.4 mmol/L (133-146); pH (venous) 7.28 (7.32-7.43)
[2021-05-25 10:37] LABS: Actual Bicarbonate (HCO3v) 13 mEq/L (22-28)
[2021-05-25] MEDS ORDERED: Albumin 5% 500 ML ONE (11:55)
[2021-05-25] MEDS ORDERED: Norepinephrine 4 MG/4 ML VIAL ONE (11:55)
[2021-05-25] MEDS ORDERED: Fentanyl 100 MCG/2 ML VIAL ONE ×2 (11:55→12:17)
[2021-05-25] MEDS ORDERED: PROPOFOL 200 MG/20 ML VIAL ONE (12:49)
[2021-05-25] MEDS ORDERED: Rocuronium Bromide 10 MG/ML (10ML VIAL) ONE (12:49)
[2021-05-25] MEDS ORDERED: Neomycin-Polymyxin 1 ML AMP ONE ×2 (13:37→15:40)
[2021-05-25] MEDS ORDERED: Vancomycin HCl 1 GM in Sodium Chloride 0.9% 250 ML 250 ML IVPB SCH (14:15)
[2021-05-25] MEDS ORDERED: Sodium Bicarbonate 2.5 MEQ/5 ML VIAL ONE (14:33)
[2021-05-25] MEDS ORDERED: Sodium Bicarb 50 MEQ/50 ML Abboject 8.4% SYRINGE ONE (14:34)
[2021-05-25 15:06] LABS: Vancomycin, Random 16.2 ug/mL (See Comment)
[2021-05-25] MEDS ORDERED: Vancomycin HCl 1.5 GM in Sodium Chloride 0.9% 250 ML 300 ML IVPB SCH (16:00)
[2021-05-25] MEDS ORDERED: HOLD VANCOMYCIN FOR LEVEL >20 FS SCH (16:00)
[2021-05-25] MEDS ORDERED: Vancomycin 1 GM in Premix Bag 1 BAG IVPB SCH (16:00)
[2021-05-25] MEDS ORDERED: Vancomycin HCl 750 MG in Sodium Chloride 0.9% 250 ML 250 ML IVPB SCH ×2 (16:00→17:00)
[2021-05-25] MEDS ORDERED: Vancomycin HCl 1.25 GM in Sodium Chloride 0.9% 250 ML 250 ML IVPB SCH (16:00)
[2021-05-25] MEDS: Multivitamins, Adult 10 ML, TRACE ELEMENT CONCENTRATE 1 ML in D15W-AA 5% with Lytes 2,0... IV SCH (16:04)
[2021-05-25 16:22] LABS: Hemoglobin 9.6 g/dL (12.0-16.0); Mean Corpuscular HGB CONC 31.2 g/dL (32.0-36.0); Mean Corpuscular Hemoglobin 23.7 pg (27.0-31.0); Mean Corpuscular Volume 76.2 fL (78.0-98.0); Mean Platelet Volume 9.3 fL (7.4-10.4); Platelet Count 300 thou/uL (130-400); RBC Distribution Width 18.5 % (11.5-14.5); Red Blood Cell (RBC) Count 4.06 mill/uL (4.20-5.40); White Blood Cell (WBC) Count 22.4 thou/uL (4.8-10.8)
[2021-05-25] MEDS: fentaNYL Citrate/PF 2,000 MCG in Sodium Chloride 0.9% 60 ML IV SCH (16:27)
[2021-05-25 16:38] LABS: Band 25 % (5-11); Burr Cells SLIGHT = 2-5 cells (100X) (0-1/hpf); Eosinophils 1 % (0-10); Hypochromia SLIGHT = 6-15 cells (100X) (0-5/hpf); Lymphocytes 3 % (21-51); MDiff Complete? YES; Microcytosis SLIGHT = 6-15 cells (100X) (0-5/hpf); Monocytes 4 % (0-10); Myelocyte 1 % (0-0); Neutrophil 66 % (42-75); Ovalocytes SLIGHT = 2-5 cells (100X) (0-1/hpf); Platelet Morphology Comment Appears Adequate; Polychromasia SLIGHT = 2-3 cells (100X) (0-2/hpf)
[2021-05-25] MEDS: Micafungin 100 MG in Sodium Chloride 0.9% 100 ML IVPB SCH (16:40)
[2021-05-25 16:58] LABS: HBSAB Concentration Less than 8.00 mIU/mL; HBSAg Index 0.24 S/CO (0-0.99); Hep B Core Total Ab Non-Reactive (NonReactive); Hep B Surf AB Non-Reactive (NonReactive); Hep B Surf Ag Non-Reactive S/CO (NonReactive); Hep C IgG Ab Non-Reactive (NonReactive)
[2021-05-25 17:24] LABS: Anion Gap 20 mmol/L (10-20); BUN (Urea Nitrogen) 88 mg/dL (7.0-18.7); Calc. Creatinine Clearance 29 mL/min (70-130); Calcium 7.5 mg/dL (7.8-10.44); Carbon Dioxide 15 mmol/L (22-29); Chloride 105 mmol/L (98-107); Glucose 134 mg/dL (70-105); Potassium 4.9 mmol/L (3.5-5.1); Sodium 135 mmol/L (136-145)
[2021-05-25] MEDS ORDERED: Sodium Bicarb 50 MEQ/50 ML Abboject 8.4% SYRINGE IVP SCH (17:45)
[2021-05-25] MEDS: Insulin Regular 300 UNITS/3 ML VIAL SC PRN (22:46)
[2021-05-26] MEDS: Propofol 1,000 MG/100 ML VIAL IV PRN ×8 (02:30→23:15)
[2021-05-26 04:10] LABS: INR-International Normal Ratio 1.2; PTT 27.4 sec (22.9-36.1); Prothrombin Time 15.7 sec (12.0-14.7)
[2021-05-26 04:12] LABS: Band 25 % (5-11); Eosinophils 1 % (0-10); Hemoglobin 8.1 g/dL (12.0-16.0); Lymphocytes 7 % (21-51); MDiff Complete? YES; Mean Corpuscular HGB CONC 32.1 g/dL (32.0-36.0); Mean Corpuscular Hemoglobin 23.9 pg (27.0-31.0); Mean Corpuscular Volume 74.5 fL (78.0-98.0); Mean Platelet Volume 9.4 fL (7.4-10.4); Microcytosis SLIGHT = 6-15 cells (100X) (0-5/hpf); Monocytes 2 % (0-10); Neutrophil 65 % (42-75); Platelet Count 271 thou/uL (130-400); Platelet Morphology Comment Appears Adequate; Red Blood Cell (RBC) Count 3.37 mill/uL (4.20-5.40); White Blood Cell (WBC) Count 19.8 thou/uL (4.8-10.8)
[2021-05-26 04:13] LABS: ALT (SGPT) 12 U/L (8-55); AST (SGOT) 19 U/L (5-34); Albumin 1.9 g/dL (3.5-5.0); Alkaline Phosphatase 138 U/L (40-110); Anion Gap 15 mmol/L (10-20); BUN (Urea Nitrogen) 87 mg/dL (7.0-18.7); Bilirubin, Total 1.6 mg/dL (0.2-1.2); Calc. Creatinine Clearance 28 mL/min (70-130); Calcium 7.7 mg/dL (7.8-10.44); Carbon Dioxide 17 mmol/L (22-29); Cardiac Risk TEST NOT PERFORMED (Less than 4.5); Chloride 104 mmol/L (98-107); Cholesterol 102 mg/dl (< 200 Desired); Globulin 2.8 g/dL (2.4-3.5); Glucose 217 mg/dL (70-105); HDL Cholesterol Less than 8 mg/dL (>60 Neg Risk); Magnesium 2.6 mg/dL (1.6-2.6); Potassium 4.1 mmol/L (3.5-5.1); Protein, Total 4.7 g/dL (6.0-8.3); Sodium 132 mmol/L (136-145); Triglycerides 471 mg/dL (Less than 150)
[2021-05-26] MEDS: Insulin Regular 300 UNITS/3 ML VIAL SC PRN ×3 (05:41→23:28)
[2021-05-26] MEDS: Heparin 5,000 UNITS/ML VIAL SC SCH ×2 (08:00→15:00)
[2021-05-26] MEDS: Pantoprazole 40 MG VIAL IVP SCH (08:58)
[2021-05-26] MEDS ORDERED: Heparin 10,000 UNITS/ 10 ML VIAL ONE (09:32)
[2021-05-26] MEDS: fentaNYL Citrate/PF 2,000 MCG in Sodium Chloride 0.9% 60 ML IV SCH (10:26)
[2021-05-26] MEDS: Micafungin 100 MG in Sodium Chloride 0.9% 100 ML IVPB SCH (14:29)
[2021-05-26] MEDS: Meropenem 500 MG in Sodium Chloride 0.9% 100 ML IVPB SCH (14:34)
[2021-05-26] MEDS: Fat Emulsion 250 ML IVPB SCH ×2 (14:40→14:43)
[2021-05-26] MEDS: Multivitamins, Adult 10 ML, TRACE ELEMENT CONCENTRATE 1 ML in D15W-AA 5% with Lytes 2,0... IV SCH (14:40)
[2021-05-26] MEDS ORDERED: Propofol 1,000 MG/100 ML VIAL IV ONE (23:10)
[2021-05-27] MEDS: Propofol 1,000 MG/100 ML VIAL IV PRN ×7 (01:48→19:17)
[2021-05-27] MEDS: fentaNYL Citrate/PF 2,000 MCG in Sodium Chloride 0.9% 60 ML IV SCH ×2 (02:58→18:49)
[2021-05-27] MEDS: Insulin Regular 300 UNITS/3 ML VIAL SC PRN ×2 (04:48→13:22)
[2021-05-27 05:04] LABS: INR-International Normal Ratio 1.2; PTT 29.1 sec (22.9-36.1); Prothrombin Time 15.3 sec (12.0-14.7)
[2021-05-27 05:13] LABS: Band 17 % (5-11); Eosinophils 2 % (0-10); Hemoglobin 7.5 g/dL (12.0-16.0); Hypochromia SLIGHT = 6-15 cells (100X) (0-5/hpf); Lymphocytes 9 % (21-51); MDiff Complete? YES; Mean Corpuscular HGB CONC 32.3 g/dL (32.0-36.0); Mean Corpuscular Hemoglobin 23.8 pg (27.0-31.0); Mean Corpuscular Volume 73.8 fL (78.0-98.0); Mean Platelet Volume 9.1 fL (7.4-10.4); Microcytosis SLIGHT = 6-15 cells (100X) (0-5/hpf); Monocytes 13 % (0-10); Neutrophil 59 % (42-75); Platelet Count 309 thou/uL (130-400); Platelet Morphology Comment Appears Adequate; RBC Distribution Width 18.4 % (11.5-14.5); Red Blood Cell (RBC) Count 3.14 mill/uL (4.20-5.40); White Blood Cell (WBC) Count 23.6 thou/uL (4.8-10.8)
[2021-05-27 05:18] LABS: ALT (SGPT) 11 U/L (8-55); AST (SGOT) 26 U/L (5-34); Albumin 1.9 g/dL (3.5-5.0); Alkaline Phosphatase 251 U/L (40-110); Anion Gap 18 mmol/L (10-20); BUN (Urea Nitrogen) 66 mg/dL (7.0-18.7); Bilirubin, Total 1.7 mg/dL (0.2-1.2); Calc. Creatinine Clearance 35 mL/min (70-130); Calcium 7.8 mg/dL (7.8-10.44); Carbon Dioxide 18 mmol/L (22-29); Chloride 100 mmol/L (98-107); Cholesterol 116 mg/dl (< 200 Desired); Globulin 3.2 g/dL (2.4-3.5); Glucose 199 mg/dL (70-105); HDL Cholesterol Less than 8 mg/dL (>60 Neg Risk); Magnesium 2.2 mg/dL (1.6-2.6); Phosphorus 3.8 mg/dL (2.3-4.7); Protein, Total 5.1 g/dL (6.0-8.3); Sodium 132 mmol/L (136-145); Triglycerides 593 mg/dL (Less than 150)
[2021-05-27 08:47] LABS: Actual Bicarbonate (HCO3a) 17.1 mEq/L (22-28); Base Excess (BEa) -6.8 mEq/L (-2.0 to +3.0); Calcium, Ionized (arterial) 1.01 mmol/L (1.12-1.30); Carboxyhemoglobin (COHb) 0.3 gm% (0.0-3.0); Hemoglobin (Hb) 7.8 g/dL (12.0-16.0); O2 Tension (PaO2), arterial 146.7 mmHg (80.0-100.0); Potassium - ABG Lab 4.03 mmol/L (3.70-5.30)
[2021-05-27 08:48] LABS: Puncture Site RBA
[2021-05-27] MEDS ORDERED: Heparin 10,000 UNITS/ 10 ML VIAL ONE (09:36)
[2021-05-27] MEDS: Pantoprazole 40 MG VIAL IVP SCH (09:58)
[2021-05-27] MEDS: Heparin 5,000 UNITS/ML VIAL SC SCH ×3 (09:58→21:46)
[2021-05-27] MEDS ORDERED: Midazolam In 0.9 % NaCl/PF 100 ML IVPB SCH (10:00)
[2021-05-27] MEDS: Micafungin 100 MG in Sodium Chloride 0.9% 100 ML IVPB SCH (13:00)
[2021-05-27] MEDS: Dexmedetomidine 1,000 MCG in Sodium Chloride 0.9% 250 ML 240 ML IVPB SCH (13:20)
[2021-05-27] MEDS: Meropenem 500 MG in Sodium Chloride 0.9% 100 ML IVPB SCH (14:09)
[2021-05-27] MEDS ORDERED: Norepinephrine 4 MG/4 ML VIAL ONE (14:36)
[2021-05-27] MEDS ORDERED: Norepinephrine 8 MG/0.9% NS 250 ML ONE (14:38)
[2021-05-27] MEDS ORDERED: Norepinephrine 8 MG/0.9% NS 250 ML IVPB SCH (14:45)
[2021-05-27] MEDS ORDERED: Norepinephrine 8 MG in Dextrose 5% in Water 242 ML IVPB PRN (14:45)
[2021-05-27] MEDS: Amino Acids 4.25 %/Dextrose 5% 1,000 ML IV SCH (16:19)
[2021-05-27] MEDS: Multivitamins, Adult 10 ML, TRACE ELEMENT CONCENTRATE 1 ML in D15W-AA 5% with Lytes 2,0... IV SCH (19:10)
[2021-05-28] MEDS: Dexmedetomidine 1,000 MCG in Sodium Chloride 0.9% 250 ML 240 ML IVPB SCH ×2 (02:10→14:41)
[2021-05-28 05:00] LABS: INR-International Normal Ratio 1.1; PTT 32.6 sec (22.9-36.1); Prothrombin Time 14.6 sec (12.0-14.7)
[2021-05-28 05:05] LABS: Hemoglobin 7.1 g/dL (12.0-16.0); Mean Corpuscular HGB CONC 31.2 g/dL (32.0-36.0); Mean Corpuscular Hemoglobin 22.9 pg (27.0-31.0); Mean Corpuscular Volume 73.5 fL (78.0-98.0); Mean Platelet Volume 8.8 fL (7.4-10.4); Platelet Count 341 thou/uL (130-400); RBC Distribution Width 18.7 % (11.5-14.5); Red Blood Cell (RBC) Count 3.09 mill/uL (4.20-5.40); White Blood Cell (WBC) Count 25.1 thou/uL (4.8-10.8)
[2021-05-28 05:06] LABS: Band 13 % (5-11); Eosinophils 3 % (0-10); Hypochromia SLIGHT = 6-15 cells (100X) (0-5/hpf); Lymphocytes 9 % (21-51); MDiff Complete? YES; Microcytosis SLIGHT = 6-15 cells (100X) (0-5/hpf); Monocytes 11 % (0-10); Neutrophil 64 % (42-75); Platelet Morphology Comment Appears Adequate
[2021-05-28 05:12] LABS: ALT (SGPT) 17 U/L (8-55); AST (SGOT) 42 U/L (5-34); Alkaline Phosphatase 357 U/L (40-110); Anion Gap 13 mmol/L (10-20); BUN (Urea Nitrogen) 48 mg/dL (7.0-18.7); Bilirubin, Total 2.5 mg/dL (0.2-1.2); Calc. Creatinine Clearance 45 mL/min (70-130); Calcium 7.9 mg/dL (7.8-10.44); Carbon Dioxide 24 mmol/L (22-29); Chloride 100 mmol/L (98-107); Cholesterol 127 mg/dl (< 200 Desired); Globulin 3.4 g/dL (2.4-3.5); Glucose 138 mg/dL (70-105); HDL Cholesterol Less than 8 mg/dL (>60 Neg Risk); Magnesium 1.9 mg/dL (1.6-2.6); Phosphorus 3.8 mg/dL (2.3-4.7); Potassium 4.4 mmol/L (3.5-5.1); Protein, Total 5.4 g/dL (6.0-8.3); Sodium 133 mmol/L (136-145); Triglycerides 565 mg/dL (Less than 150)
[2021-05-28 05:42] LABS: SARS-CoV-2 NAA Rapid Test Not Detected (NotDetected)
[2021-05-28] MEDS ORDERED: Heparin 10,000 UNITS/ 10 ML VIAL ONE ×2 (06:47→09:34)
[2021-05-28] MEDS ORDERED: Lidocaine 1% w/Epinephrine 1:100K 20 ML VIAL ONE (06:47)
[2021-05-28] MEDS ORDERED: Bupivacaine PF 0.5% 30 ML VIAL ONE (06:47)
[2021-05-28] MEDS ORDERED: Sodium Chloride 0.9% 10 ML ONE (06:47)
[2021-05-28] MEDS ORDERED: Rocuronium Bromide 50 MG/5 ML VIAL ONE (07:10)
[2021-05-28] MEDS ORDERED: Midazolam HCl 2 mg/2 ml Vial ONE (07:10)
[2021-05-28] MEDS ORDERED: Rocuronium Bromide 10 MG/ML (10ML VIAL) ONE (07:42)
[2021-05-28] MEDS: Fluconazole In NaCl,Iso-Osm 200 MG in Premix Bag 1 BAG IVPB SCH (09:42)
[2021-05-28] MEDS: Heparin 5,000 UNITS/ML VIAL SC SCH ×3 (09:43→21:07)
[2021-05-28] MEDS: Pantoprazole 40 MG VIAL IVP SCH (09:43)
[2021-05-28 11:25] LABS: Actual Bicarbonate (HCO3a) 21.7 mEq/L (22-28); Base Excess (BEa) -1.4 mEq/L (-2.0 to +3.0); CO2 Tension 29.7 mmHg (35.0-45.0); Calcium, Ionized (arterial) 1.01 mmol/L (1.12-1.30); Carboxyhemoglobin (COHb) 0.5 gm% (0.0-3.0); Hemoglobin (Hb) 7.5 g/dL (12.0-16.0); O2 Tension (PaO2), arterial 132.6 mmHg (80.0-100.0); Potassium - ABG Lab 3.98 mmol/L (3.70-5.30); pH, Arterial 7.48 (7.35-7.45)
[2021-05-28 11:26] LABS: ALV-art Gradient 115.475 mmHg (0-20); Puncture Site LRB
[2021-05-28] MEDS: Octreotide Acetate 100 MCG in Sodium Chloride 0.9% 50 ML IVPB SCH ×2 (13:19→21:15)
[2021-05-28] MEDS: Amino Acids 4.25 %/Dextrose 5% 1,000 ML IV SCH (13:28)
[2021-05-28] MEDS: Multivitamins, Adult 10 ML, TRACE ELEMENT CONCENTRATE 1 ML in CLINIMIX E 5/20 2,000 ML IV SCH (14:42)
[2021-05-28] MEDS: Fat Emulsion 250 ML IVPB SCH (14:42)
[2021-05-28] MEDS: Meropenem 500 MG in Sodium Chloride 0.9% 100 ML IVPB SCH (15:42)
[2021-05-28] MEDS: Insulin Regular 300 UNITS/3 ML VIAL SC PRN ×2 (16:41→22:49)
[2021-05-28] MEDS: fentaNYL Citrate/PF 2,000 MCG in Sodium Chloride 0.9% 60 ML IV SCH (17:18)
[2021-05-29] MEDS: Dexmedetomidine 1,000 MCG in Sodium Chloride 0.9% 250 ML 240 ML IVPB SCH ×4 (03:23→21:19)
[2021-05-29] MEDS ORDERED: Norepinephrine 8 MG/0.9% NS 250 ML ONE (03:49)
[2021-05-29] MEDS: Insulin Regular 300 UNITS/3 ML VIAL SC PRN ×4 (04:26→22:38)
[2021-05-29 04:27] LABS: INR-International Normal Ratio 1.2
[2021-05-29 04:28] LABS: PTT 31.3 sec (22.9-36.1)
[2021-05-29 04:50] LABS: Mean Corpuscular HGB CONC 33.1 g/dL (32.0-36.0); Mean Corpuscular Hemoglobin 25.4 pg (27.0-31.0); Mean Corpuscular Volume 76.7 fL (78.0-98.0); Mean Platelet Volume 8.8 fL (7.4-10.4); Platelet Count 346 thou/uL (130-400); RBC Distribution Width 19.4 % (11.5-14.5); Red Blood Cell (RBC) Count 3.13 mill/uL (4.20-5.40); White Blood Cell (WBC) Count 23.7 thou/uL (4.8-10.8)
[2021-05-29 04:51] LABS: ALT (SGPT) 20 U/L (8-55); AST (SGOT) 50 U/L (5-34); Albumin 1.9 g/dL (3.5-5.0); Alkaline Phosphatase 423 U/L (40-110); Anion Gap 17 mmol/L (10-20); BUN (Urea Nitrogen) 38 mg/dL (7.0-18.7); Band 31 % (5-11); Bilirubin, Total 2.1 mg/dL (0.2-1.2); Calc. Creatinine Clearance 49 mL/min (70-130); Calcium 7.9 mg/dL (7.8-10.44); Carbon Dioxide 23 mmol/L (22-29); Cardiac Risk TEST NOT PERFORMED (Less than 4.5); Chloride 98 mmol/L (98-107); Cholesterol 141 mg/dl (< 200 Desired); Globulin 3.6 g/dL (2.4-3.5); Glucose 245 mg/dL (70-105); HDL Cholesterol Less than 8 mg/dL (>60 Neg Risk); Hypochromia SLIGHT = 6-15 cells (100X) (0-5/hpf); Lymphocytes 13 % (21-51); MDiff Complete? YES; Magnesium 2.2 mg/dL (1.6-2.6); Microcytosis SLIGHT = 6-15 cells (100X) (0-5/hpf); Neutrophil 56 % (42-75); Phosphorus 4.8 mg/dL (2.3-4.7); Platelet Morphology Comment Appears Adequate; Potassium 4.2 mmol/L (3.5-5.1); Protein, Total 5.5 g/dL (6.0-8.3); Sodium 134 mmol/L (136-145); Triglycerides 560 mg/dL (Less than 150)
[2021-05-29] MEDS: Octreotide Acetate 100 MCG in Sodium Chloride 0.9% 50 ML IVPB SCH ×3 (06:25→21:18)
[2021-05-29 08:02] LABS: Actual Bicarbonate (HCO3a) 24.2 mEq/L (22-28); Base Excess (BEa) 1.1 mEq/L (-2.0 to +3.0); CO2 Tension 32.2 mmHg (35.0-45.0); Calcium, Ionized (arterial) 1.01 mmol/L (1.12-1.30); Carboxyhemoglobin (COHb) 0.5 gm% (0.0-3.0); Hemoglobin (Hb) 8.8 g/dL (12.0-16.0); O2 Tension (PaO2), arterial 94.6 mmHg (80.0-100.0); Potassium - ABG Lab 3.86 mmol/L (3.70-5.30); pH, Arterial 7.49 (7.35-7.45)
[2021-05-29 08:53] LABS: Puncture Site RRA
[2021-05-29] MEDS ORDERED: Heparin 10,000 UNITS/ 10 ML VIAL ONE (08:58)
[2021-05-29] MEDS: Heparin 5,000 UNITS/ML VIAL SC SCH ×3 (09:00→21:18)
[2021-05-29] MEDS: Fluconazole In NaCl,Iso-Osm 200 MG in Premix Bag 1 BAG IVPB SCH (09:31)
[2021-05-29] MEDS: Pantoprazole 40 MG VIAL IVP SCH (09:31)
[2021-05-29] MEDS: fentaNYL Citrate/PF 2,000 MCG in Sodium Chloride 0.9% 60 ML IV SCH (14:31)
[2021-05-29] MEDS: Multivitamins, Adult 10 ML, TRACE ELEMENT CONCENTRATE 1 ML in CLINIMIX E 5/20 2,000 ML IV SCH (14:32)
[2021-05-29] MEDS: Meropenem 500 MG in Sodium Chloride 0.9% 100 ML IVPB SCH (16:20)
[2021-05-29] MEDS: Lorazepam 2 MG/ML VIAL SLOW IVP PRN (22:23)
[2021-05-30] MEDS: Lorazepam 2 MG/ML VIAL SLOW IVP PRN ×2 (02:45→20:57)
[2021-05-30] MEDS: Insulin Regular 300 UNITS/3 ML VIAL SC PRN ×4 (04:51→20:37)
[2021-05-30] MEDS: Octreotide Acetate 100 MCG in Sodium Chloride 0.9% 50 ML IVPB SCH ×3 (05:44→21:03)
[2021-05-30] MEDS: Dexmedetomidine 1,000 MCG in Sodium Chloride 0.9% 250 ML 240 ML IVPB SCH ×3 (05:52→20:35)
[2021-05-30] MEDS: fentaNYL Citrate/PF 2,000 MCG in Sodium Chloride 0.9% 60 ML IV SCH ×2 (07:00→21:14)
[2021-05-30 07:38] LABS: Actual Bicarbonate (HCO3a) 25.3 mEq/L (22-28); Base Excess (BEa) 2.6 mEq/L (-2.0 to +3.0); CO2 Tension 30.8 mmHg (35.0-45.0); Calcium, Ionized (arterial) 1.02 mmol/L (1.12-1.30); Carboxyhemoglobin (COHb) 0.8 gm% (0.0-3.0); Hemoglobin (Hb) 7.8 g/dL (12.0-16.0); O2 Tension (PaO2), arterial 112.1 mmHg (80.0-100.0); Potassium - ABG Lab 3.84 mmol/L (3.70-5.30); pH, Arterial 7.53 (7.35-7.45)
[2021-05-30 07:44] LABS: Puncture Site RRA
[2021-05-30] MEDS: Fluconazole In NaCl,Iso-Osm 200 MG in Premix Bag 1 BAG IVPB SCH (08:45)
[2021-05-30] MEDS: Pantoprazole 40 MG VIAL IVP SCH (08:46)
[2021-05-30] MEDS: Heparin 5,000 UNITS/ML VIAL SC SCH ×3 (08:46→20:35)
[2021-05-30] MEDS ORDERED: Phenylephrine 10 MG/ML VIAL ONE (11:55)
[2021-05-30] MEDS ORDERED: Midazolam HCl 2 mg/2 ml Vial ONE (12:41)
[2021-05-30] MEDS ORDERED: Fentanyl 250 MCG/5 ML VIAL ONE (12:41)
[2021-05-30 12:45] LABS: Hemoglobin 7.2 g/dL (12.0-16.0); Mean Corpuscular HGB CONC 33.6 g/dL (32.0-36.0); Mean Corpuscular Hemoglobin 26.1 pg (27.0-31.0); Mean Corpuscular Volume 77.6 fL (78.0-98.0); Mean Platelet Volume 8.3 fL (7.4-10.4); Platelet Count 355 thou/uL (130-400); RBC Distribution Width 19.9 % (11.5-14.5); Red Blood Cell (RBC) Count 2.77 mill/uL (4.20-5.40); White Blood Cell (WBC) Count 17.6 thou/uL (4.8-10.8)
[2021-05-30 12:58] LABS: Anion Gap 14 mmol/L (10-20); BUN (Urea Nitrogen) 41 mg/dL (7.0-18.7); Calc. Creatinine Clearance 43 mL/min (70-130); Carbon Dioxide 25 mmol/L (22-29); Chloride 99 mmol/L (98-107); Glucose 237 mg/dL (70-105); Potassium 4.1 mmol/L (3.5-5.1); Sodium 134 mmol/L (136-145)
[2021-05-30] MEDS ORDERED: Albuterol Sulfate HFA (OR ONLY) ONE ×2 (13:27→13:47)
[2021-05-30] MEDS ORDERED: Rocuronium Bromide 10 MG/ML (10ML VIAL) ONE (13:27)
[2021-05-30] MEDS ORDERED: PROPOFOL 200 MG/20 ML VIAL ONE (13:27)
[2021-05-30 13:36] LABS: Anisocytosis SLIGHT = 6-15 cells (100X) (0-5/hpf); Band 15 % (5-11); Eosinophils 6 % (0-10); Hypochromia SLIGHT = 6-15 cells (100X) (0-5/hpf); Lymphocytes 11 % (21-51); MDiff Complete? YES; Metamyelocyte 1 % (0-0); Monocytes 4 % (0-10); Neutrophil 63 % (42-75); Platelet Morphology Comment Appears Adequate; Polychromasia SLIGHT = 2-3 cells (100X) (0-2/hpf); Target Cells SLIGHT = 2-5 cells (100X) (0-1/hpf)
[2021-05-30] MEDS ORDERED: Neomycin-Polymyxin 1 ML AMP ONE (14:11)
[2021-05-30] MEDS ORDERED: Fentanyl 100 MCG/2 ML VIAL ONE (14:30)
[2021-05-30] MEDS: Fat Emulsion 250 ML IVPB SCH ×2 (15:32→15:41)
[2021-05-30] MEDS: Multivitamins, Adult 10 ML, TRACE ELEMENT CONCENTRATE 1 ML in CLINIMIX E 5/20 2,000 ML IV SCH ×2 (15:33→15:41)
[2021-05-30] MEDS: Meropenem 500 MG in Sodium Chloride 0.9% 100 ML IVPB SCH (15:59)
[2021-05-31] MEDS: Dexmedetomidine 1,000 MCG in Sodium Chloride 0.9% 250 ML 240 ML IVPB SCH ×3 (03:13→18:45)
[2021-05-31 04:42] LABS: Anion Gap 16 mmol/L (10-20); BUN (Urea Nitrogen) 50 mg/dL (7.0-18.7); Calc. Creatinine Clearance 37 mL/min (70-130); Calcium 7.8 mg/dL (7.8-10.44); Carbon Dioxide 24 mmol/L (22-29); Chloride 100 mmol/L (98-107); Glucose 244 mg/dL (70-105); Potassium 4.6 mmol/L (3.5-5.1); Sodium 135 mmol/L (136-145)
[2021-05-31] MEDS: Insulin Regular 300 UNITS/3 ML VIAL SC PRN ×4 (04:46→20:40)
[2021-05-31] MEDS: Octreotide Acetate 100 MCG in Sodium Chloride 0.9% 50 ML IVPB SCH ×3 (05:49→21:51)
[2021-05-31 06:34] LABS: Hemoglobin 6.8 g/dL (12.0-16.0); Mean Corpuscular HGB CONC 32.7 g/dL (32.0-36.0); Mean Corpuscular Hemoglobin 25.6 pg (27.0-31.0); Mean Corpuscular Volume 78.2 fL (78.0-98.0); Mean Platelet Volume 8.8 fL (7.4-10.4); Platelet Count 374 thou/uL (130-400); RBC Distribution Width 20.5 % (11.5-14.5); Red Blood Cell (RBC) Count 2.64 mill/uL (4.20-5.40); White Blood Cell (WBC) Count 20.8 thou/uL (4.8-10.8)
[2021-05-31 06:43] LABS: Anisocytosis SLIGHT = 6-15 cells (100X) (0-5/hpf); Band 28 % (5-11); Eosinophils 2 % (0-10); Lymphocytes 11 % (21-51); MDiff Complete? YES; Myelocyte 2 % (0-0); Neutrophil 57 % (42-75)
[2021-05-31] MEDS: Fluconazole In NaCl,Iso-Osm 200 MG in Premix Bag 1 BAG IVPB SCH (08:48)
[2021-05-31] MEDS: Pantoprazole 40 MG VIAL IVP SCH (08:49)
[2021-05-31 08:51] LABS: Actual Bicarbonate (HCO3a) 19.8 mEq/L (22-28); Base Excess (BEa) -4.9 mEq/L (-2.0 to +3.0); CO2 Tension 34.5 mmHg (35.0-45.0); Calcium, Ionized (arterial) 1.02 mmol/L (1.12-1.30); Carboxyhemoglobin (COHb) 0.8 gm% (0.0-3.0); Hemoglobin (Hb) 7.5 g/dL (12.0-16.0); O2 Tension (PaO2), arterial 69.4 mmHg (80.0-100.0); pH, Arterial 7.38 (7.35-7.45)
[2021-05-31 08:52] LABS: ALV-art Gradient 87.115 mmHg (0-20); Puncture Site LRA
[2021-05-31] MEDS: Lorazepam 2 MG/ML VIAL SLOW IVP PRN ×4 (10:23→22:28)
[2021-05-31] MEDS: Heparin 5,000 UNITS/ML VIAL SC SCH ×3 (10:33→20:37)
[2021-05-31] MEDS ORDERED: Heparin 10,000 UNITS/ 10 ML VIAL ONE (12:05)
[2021-05-31] MEDS: Morphine 4 MG/ML VIAL SLOW IVP PRN (15:02)
[2021-05-31] MEDS: Multivitamins, Adult 10 ML, TRACE ELEMENT CONCENTRATE 1 ML in D15W-AA 5% with Lytes 2,0... IV SCH (15:05)
[2021-05-31] MEDS: fentaNYL Citrate/PF 2,000 MCG in Sodium Chloride 0.9% 60 ML IV SCH (15:12)
[2021-05-31] MEDS: Meropenem 500 MG in Sodium Chloride 0.9% 100 ML IVPB SCH (16:37)
[2021-06-01] MEDS: Dexmedetomidine 1,000 MCG in Sodium Chloride 0.9% 250 ML 240 ML IVPB SCH ×3 (02:00→14:08)
[2021-06-01] MEDS: Lorazepam 2 MG/ML VIAL SLOW IVP PRN ×2 (02:11→23:03)
[2021-06-01] MEDS: Insulin Regular 300 UNITS/3 ML VIAL SC PRN ×4 (04:33→22:24)
[2021-06-01 05:48] LABS: Hemoglobin 7.6 g/dL (12.0-16.0); Mean Corpuscular HGB CONC 33.1 g/dL (32.0-36.0); Mean Corpuscular Volume 81.5 fL (78.0-98.0); Mean Platelet Volume 8.7 fL (7.4-10.4); Platelet Count 398 thou/uL (130-400); RBC Distribution Width 20.2 % (11.5-14.5); Red Blood Cell (RBC) Count 2.82 mill/uL (4.20-5.40); White Blood Cell (WBC) Count 18.9 thou/uL (4.8-10.8)
[2021-06-01 05:54] LABS: Anion Gap 13 mmol/L (10-20); BUN (Urea Nitrogen) 48 mg/dL (7.0-18.7); Calc. Creatinine Clearance 38 mL/min (70-130); Calcium 7.6 mg/dL (7.8-10.44); Carbon Dioxide 25 mmol/L (22-29); Chloride 101 mmol/L (98-107); Glucose 219 mg/dL (70-105); Potassium 4.1 mmol/L (3.5-5.1); Sodium 135 mmol/L (136-145)
[2021-06-01] MEDS: Octreotide Acetate 100 MCG in Sodium Chloride 0.9% 50 ML IVPB SCH ×3 (06:09→21:17)
[2021-06-01 06:18] LABS: #Eosinphils 0.7 thou/uL (0.0-0.7); #Lymphocytes 1.6 thou/uL (1.20-3.40); #Monocytes 1.5 thou/uL (0.11-0.59); %Basophils 0.2 % (0.0-1.0); %Eosinophils 3.9 % (0.0-10.0); %Lymphocytes 8.5 % (21.0-51.0); %Monocytes 7.8 % (0.0-10.0); %Neutrophils 79.5 % (42.0-75.0)
[2021-06-01 06:19] LABS: Anisocytosis SLIGHT = 6-15 cells (100X) (0-5/hpf); Large Platelets SLIGHT; MDiff Complete? YES; Platelet Morphology Comment Appears Adequate; Polychromasia SLIGHT = 2-3 cells (100X) (0-2/hpf)
[2021-06-01 07:38] LABS: Actual Bicarbonate (HCO3a) 23.7 mEq/L (22-28); Base Excess (BEa) -0.2 mEq/L (-2.0 to +3.0); CO2 Tension 35.4 mmHg (35.0-45.0); Calcium, Ionized (arterial) 1.02 mmol/L (1.12-1.30); Carboxyhemoglobin (COHb) 0.5 gm% (0.0-3.0); Hemoglobin (Hb) 8.3 g/dL (12.0-16.0); O2 Tension (PaO2), arterial 80.7 mmHg (80.0-100.0); Potassium - ABG Lab 4.13 mmol/L (3.70-5.30); pH, Arterial 7.44 (7.35-7.45)
[2021-06-01 07:39] LABS: Puncture Site LBA
[2021-06-01] MEDS: fentaNYL Citrate/PF 2,000 MCG in Sodium Chloride 0.9% 60 ML IV SCH ×2 (07:40→23:49)
[2021-06-01] MEDS: Heparin 5,000 UNITS/ML VIAL SC SCH ×3 (09:06→21:17)
[2021-06-01] MEDS: Pantoprazole 40 MG VIAL IVP SCH (09:06)
[2021-06-01] MEDS: Fluconazole In NaCl,Iso-Osm 200 MG in Premix Bag 1 BAG IVPB SCH (09:06)
[2021-06-01] MEDS: Multivitamins, Adult 10 ML, TRACE ELEMENT CONCENTRATE 1 ML in D15W-AA 5% with Lytes 2,0... IV SCH (14:33)
[2021-06-01] MEDS: Meropenem 500 MG in Sodium Chloride 0.9% 100 ML IVPB SCH (15:45)
[2021-06-02] MEDS: Dexmedetomidine 1,000 MCG in Sodium Chloride 0.9% 250 ML 240 ML IVPB SCH ×5 (00:21→21:57)
[2021-06-02] MEDS: Lorazepam 2 MG/ML VIAL SLOW IVP PRN ×5 (01:50→22:06)
[2021-06-02] MEDS: Insulin Regular 300 UNITS/3 ML VIAL SC PRN ×3 (05:00→22:30)
[2021-06-02] MEDS: Octreotide Acetate 100 MCG in Sodium Chloride 0.9% 50 ML IVPB SCH ×3 (06:46→21:16)
[2021-06-02 07:24] LABS: Base Excess (BEa) -2.9 mEq/L (-2.0 to +3.0); CO2 Tension 32.2 mmHg (35.0-45.0); Calcium, Ionized (arterial) 1.02 mmol/L (1.12-1.30); Carboxyhemoglobin (COHb) 1.3 gm% (0.0-3.0); Hemoglobin (Hb) 6.8 g/dL (12.0-16.0); O2 Tension (PaO2), arterial 97.5 mmHg (80.0-100.0); Potassium - ABG Lab 4.84 mmol/L (3.70-5.30); pH, Arterial 7.43 (7.35-7.45)
[2021-06-02 07:51] LABS: Puncture Site RRA
[2021-06-02 09:16] LABS: #Basophils 0.1 thou/uL (0.0-0.2); #Eosinphils 0.5 thou/uL (0.0-0.7); #Lymphocytes 1.5 thou/uL (1.20-3.40); #Monocytes 1.2 thou/uL (0.11-0.59); #Neutrophils 12.2 thou/uL (1.40-6.50); %Basophils 0.4 % (0.0-1.0); %Eosinophils 3.4 % (0.0-10.0); %Lymphocytes 9.6 % (21.0-51.0); %Monocytes 7.8 % (0.0-10.0); %Neutrophils 78.8 % (42.0-75.0); Hemoglobin 6.7 g/dL (12.0-16.0); Mean Corpuscular HGB CONC 31.2 g/dL (32.0-36.0); Mean Corpuscular Hemoglobin 25.7 pg (27.0-31.0); Mean Corpuscular Volume 82.3 fL (78.0-98.0); Platelet Count 481 thou/uL (130-400); RBC Distribution Width 20.3 % (11.5-14.5); Red Blood Cell (RBC) Count 2.62 mill/uL (4.20-5.40); White Blood Cell (WBC) Count 15.4 thou/uL (4.8-10.8)
[2021-06-02 09:31] LABS: ALT (SGPT) 17 U/L (8-55); AST (SGOT) 24 U/L (5-34); Alkaline Phosphatase 354 U/L (40-110); Anion Gap 13 mmol/L (10-20); BUN (Urea Nitrogen) 48 mg/dL (7.0-18.7); Bilirubin, Total 2.2 mg/dL (0.2-1.2); Calc. Creatinine Clearance 43 mL/min (70-130); Calcium 7.7 mg/dL (7.8-10.44); Carbon Dioxide 25 mmol/L (22-29); Chloride 101 mmol/L (98-107); Globulin 3.7 g/dL (2.4-3.5); Glucose 173 mg/dL (70-105); Magnesium 2.1 mg/dL (1.6-2.6); Potassium 4.3 mmol/L (3.5-5.1); Protein, Total 5.7 g/dL (6.0-8.3); Sodium 135 mmol/L (136-145)
[2021-06-02 10:09] LABS: Band 26 % (5-11); Eosinophils 1 % (0-10); Hypochromia SLIGHT = 6-15 cells (100X) (0-5/hpf); Lymphocytes 5 % (21-51); MDiff Complete? YES; Metamyelocyte 3 % (0-0); Monocytes 10 % (0-10); Neutrophil 54 % (42-75); Platelet Morphology Comment Appears Increased; Polychromasia SLIGHT = 2-3 cells (100X) (0-2/hpf); Reactive Lymphocytes 1 % (0-10)
[2021-06-02] MEDS ORDERED: Heparin 10,000 UNITS/ 10 ML VIAL ONE (11:07)
[2021-06-02] MEDS: Fluconazole In NaCl,Iso-Osm 200 MG in Premix Bag 1 BAG IVPB SCH (11:09)
[2021-06-02] MEDS: Heparin 5,000 UNITS/ML VIAL SC SCH ×3 (11:10→21:15)
[2021-06-02] MEDS: Pantoprazole 40 MG VIAL IVP SCH (11:10)
[2021-06-02] MEDS: Multivitamins, Adult 10 ML, TRACE ELEMENT CONCENTRATE 1 ML in D15W-AA 5% with Lytes 2,0... IV SCH (14:25)
[2021-06-02] MEDS: Fat Emulsion 250 ML IVPB SCH (14:26)
[2021-06-02] MEDS: fentaNYL Citrate/PF 2,000 MCG in Sodium Chloride 0.9% 60 ML IV SCH (14:58)
[2021-06-02] MEDS: Meropenem 500 MG in Sodium Chloride 0.9% 100 ML IVPB SCH (15:15)
[2021-06-02] MEDS: Linezolid 600 MG in Premix Bag 1 BAG IVPB SCH (16:39)
[2021-06-03] MEDS: Morphine 4 MG/ML VIAL SLOW IVP PRN (01:14)
[2021-06-03] MEDS: Dexmedetomidine 1,000 MCG in Sodium Chloride 0.9% 250 ML 240 ML IVPB SCH ×4 (02:23→22:50)
[2021-06-03] MEDS: fentaNYL Citrate/PF 2,000 MCG in Sodium Chloride 0.9% 60 ML IV SCH ×3 (02:26→23:56)
[2021-06-03] MEDS: Linezolid 600 MG in Premix Bag 1 BAG IVPB SCH ×2 (03:51→20:19)
[2021-06-03] MEDS: Insulin Regular 300 UNITS/3 ML VIAL SC PRN ×4 (04:29→22:17)
[2021-06-03] MEDS: Octreotide Acetate 100 MCG in Sodium Chloride 0.9% 50 ML IVPB SCH ×3 (05:32→22:49)
[2021-06-03] MEDS: Lorazepam 2 MG/ML VIAL SLOW IVP PRN ×3 (08:20→20:38)
[2021-06-03] MEDS: Heparin 5,000 UNITS/ML VIAL SC SCH ×3 (10:01→20:38)
[2021-06-03] MEDS: Fluconazole In NaCl,Iso-Osm 200 MG in Premix Bag 1 BAG IVPB SCH (10:01)
[2021-06-03] MEDS: Pantoprazole 40 MG VIAL IVP SCH (10:01)
[2021-06-03 10:21] LABS: #Basophils 0.1 thou/uL (0.0-0.2); #Eosinphils 0.4 thou/uL (0.0-0.7); #Lymphocytes 1.4 thou/uL (1.20-3.40); #Monocytes 1.4 thou/uL (0.11-0.59); #Neutrophils 11.5 thou/uL (1.40-6.50); %Basophils 0.5 % (0.0-1.0); %Lymphocytes 9.5 % (21.0-51.0); %Monocytes 9.2 % (0.0-10.0); %Neutrophils 77.8 % (42.0-75.0); Hemoglobin 6.7 g/dL (12.0-16.0); Mean Corpuscular HGB CONC 32.7 g/dL (32.0-36.0); Mean Corpuscular Hemoglobin 27.3 pg (27.0-31.0); Mean Corpuscular Volume 83.4 fL (78.0-98.0); Mean Platelet Volume 8.1 fL (7.4-10.4); Platelet Count 481 thou/uL (130-400); RBC Distribution Width 20.4 % (11.5-14.5); Red Blood Cell (RBC) Count 2.45 mill/uL (4.20-5.40); White Blood Cell (WBC) Count 14.8 thou/uL (4.8-10.8)
[2021-06-03 10:38] LABS: Anion Gap 16 mmol/L (10-20); BUN (Urea Nitrogen) 55 mg/dL (7.0-18.7); Calc. Creatinine Clearance 34 mL/min (70-130); Calcium 7.6 mg/dL (7.8-10.44); Carbon Dioxide 22 mmol/L (22-29); Chloride 100 mmol/L (98-107); Glucose 221 mg/dL (70-105); Sodium 133 mmol/L (136-145)
[2021-06-03] MEDS ORDERED: Heparin 10,000 UNITS/ 10 ML VIAL ONE (12:49)
[2021-06-03] MEDS ORDERED: Iopamidol-370 76% 500 ML 1 ML ONE (13:44)
[2021-06-03] MEDS: Multivitamins, Adult 10 ML, TRACE ELEMENT CONCENTRATE 1 ML in D15W-AA 5% with Lytes 2,0... IV SCH (14:30)
[2021-06-03] MEDS: Meropenem 500 MG in Sodium Chloride 0.9% 100 ML IVPB SCH (15:32)
[2021-06-04] MEDS: Insulin Regular 300 UNITS/3 ML VIAL SC PRN ×2 (04:03→20:08)
[2021-06-04 04:19] LABS: Anion Gap 13 mmol/L (10-20); BUN (Urea Nitrogen) 37 mg/dL (7.0-18.7); Calc. Creatinine Clearance 45 mL/min (70-130); Calcium 7.8 mg/dL (7.8-10.44); Carbon Dioxide 25 mmol/L (22-29); Chloride 99 mmol/L (98-107); Glucose 224 mg/dL (70-105); Potassium 4.2 mmol/L (3.5-5.1); Sodium 133 mmol/L (136-145)
[2021-06-04] MEDS: Lorazepam 2 MG/ML VIAL SLOW IVP PRN ×4 (04:34→17:54)
[2021-06-04] MEDS: Linezolid 600 MG in Premix Bag 1 BAG IVPB SCH ×2 (04:50→16:29)
[2021-06-04] MEDS: Dexmedetomidine 1,000 MCG in Sodium Chloride 0.9% 250 ML 240 ML IVPB SCH ×5 (04:51→22:28)
[2021-06-04 06:12] LABS: Band 11 % (5-11); Eosinophils 9 % (0-10); Hemoglobin 8.2 g/dL (12.0-16.0); Lymphocytes 11 % (21-51); MDiff Complete? YES; Mean Corpuscular HGB CONC 32.4 g/dL (32.0-36.0); Mean Corpuscular Hemoglobin 27.3 pg (27.0-31.0); Mean Corpuscular Volume 84.3 fL (78.0-98.0); Mean Platelet Volume 7.7 fL (7.4-10.4); Monocytes 4 % (0-10); Neutrophil 65 % (42-75); Platelet Count 412 thou/uL (130-400); RBC Distribution Width 18.6 % (11.5-14.5); Red Blood Cell (RBC) Count 2.99 mill/uL (4.20-5.40); White Blood Cell (WBC) Count 13.9 thou/uL (4.8-10.8)
[2021-06-04 07:29] LABS: Actual Bicarbonate (HCO3a) 24.4 mEq/L (22-28); Base Excess (BEa) 0.5 mEq/L (-2.0 to +3.0); CO2 Tension 35.7 mmHg (35.0-45.0); Calcium, Ionized (arterial) 1.05 mmol/L (1.12-1.30); Carboxyhemoglobin (COHb) 0.3 gm% (0.0-3.0); Hemoglobin (Hb) 8.6 g/dL (12.0-16.0); O2 Tension (PaO2), arterial 114.1 mmHg (80.0-100.0); Potassium - ABG Lab 3.92 mmol/L (3.70-5.30); pH, Arterial 7.45 (7.35-7.45)
[2021-06-04] MEDS: Octreotide Acetate 100 MCG in Sodium Chloride 0.9% 50 ML IVPB SCH ×3 (07:42→22:24)
[2021-06-04 07:54] LABS: Puncture Site RRA
[2021-06-04 07:55] LABS: ALV-art Gradient 40.915 mmHg (0-20)
[2021-06-04] MEDS: Pantoprazole 40 MG VIAL IVP SCH (08:19)
[2021-06-04] MEDS: Heparin 5,000 UNITS/ML VIAL SC SCH ×3 (08:19→20:07)
[2021-06-04] MEDS: fentaNYL Citrate/PF 2,000 MCG in Sodium Chloride 0.9% 60 ML IV SCH ×2 (08:20→18:09)
[2021-06-04] MEDS ORDERED: Promethazine HCl 12.5 MG in Sodium Chloride 0.9% 50 ML IVPB PRN ×2 (09:05→13:45)
[2021-06-04] MEDS: Ondansetron PF 4 MG/2 ML Vial IVP PRN (09:27)
[2021-06-04] MEDS: Fluconazole In NaCl,Iso-Osm 200 MG in Premix Bag 1 BAG IVPB SCH (11:06)
[2021-06-04] MEDS: Fat Emulsion 250 ML IVPB SCH (14:26)
[2021-06-04] MEDS: Multivitamins, Adult 10 ML, TRACE ELEMENT CONCENTRATE 1 ML in D15W-AA 5% with Lytes 2,0... IV SCH (14:27)
[2021-06-04 14:44] LABS: SARS-CoV-2 PCR by NAA Not Detected (NotDetected)
[2021-06-04] MEDS: Meropenem 500 MG in Sodium Chloride 0.9% 100 ML IVPB SCH (16:32)
[2021-06-05] MEDS: Lorazepam 2 MG/ML VIAL SLOW IVP PRN ×6 (01:40→23:24)
[2021-06-05] MEDS: Ondansetron PF 4 MG/2 ML Vial IVP PRN (01:40)
[2021-06-05] MEDS: fentaNYL Citrate/PF 2,000 MCG in Sodium Chloride 0.9% 60 ML IV SCH ×3 (03:42→22:31)
[2021-06-05] MEDS: Linezolid 600 MG in Premix Bag 1 BAG IVPB SCH ×2 (03:52→15:17)
[2021-06-05 04:56] LABS: Hemoglobin 7.8 g/dL (12.0-16.0); Mean Corpuscular HGB CONC 32.9 g/dL (32.0-36.0); Mean Corpuscular Volume 85.1 fL (78.0-98.0); Mean Platelet Volume 7.9 fL (7.4-10.4); Platelet Count 416 thou/uL (130-400); RBC Distribution Width 18.6 % (11.5-14.5); Red Blood Cell (RBC) Count 2.79 mill/uL (4.20-5.40); White Blood Cell (WBC) Count 11.5 thou/uL (4.8-10.8)
[2021-06-05 05:11] LABS: Band 14 % (5-11); Eosinophils 12 % (0-10); Lymphocytes 15 % (21-51); MDiff Complete? YES; Metamyelocyte 1 % (0-0); Monocytes 11 % (0-10); Myelocyte 1 % (0-0); Neutrophil 46 % (42-75)
[2021-06-05 05:12] LABS: Anion Gap 14 mmol/L (10-20); BUN (Urea Nitrogen) 48 mg/dL (7.0-18.7); Calc. Creatinine Clearance 38 mL/min (70-130); Calcium 8.1 mg/dL (7.8-10.44); Carbon Dioxide 22 mmol/L (22-29); Chloride 100 mmol/L (98-107); Glucose 191 mg/dL (70-105); Potassium 4.2 mmol/L (3.5-5.1); Sodium 132 mmol/L (136-145)
[2021-06-05] MEDS: Dexmedetomidine 1,000 MCG in Sodium Chloride 0.9% 250 ML 240 ML IVPB SCH ×5 (05:28→22:30)
[2021-06-05] MEDS: Insulin Regular 300 UNITS/3 ML VIAL SC PRN ×3 (07:22→20:30)
[2021-06-05] MEDS: Octreotide Acetate 100 MCG in Sodium Chloride 0.9% 50 ML IVPB SCH (07:47)
[2021-06-05] MEDS: Fluconazole In NaCl,Iso-Osm 200 MG in Premix Bag 1 BAG IVPB SCH (08:17)
[2021-06-05] MEDS: Heparin 5,000 UNITS/ML VIAL SC SCH ×3 (08:19→20:25)
[2021-06-05] MEDS: Pantoprazole 40 MG VIAL IVP SCH (08:20)
[2021-06-05 08:35] LABS: Actual Bicarbonate (HCO3a) 21.4 mEq/L (22-28); Base Excess (BEa) -2.9 mEq/L (-2.0 to +3.0); CO2 Tension 34.9 mmHg (35.0-45.0); Calcium, Ionized (arterial) 1.06 mmol/L (1.12-1.30); Carboxyhemoglobin (COHb) 0.2 gm% (0.0-3.0); O2 Tension (PaO2), arterial 84.8 mmHg (80.0-100.0); Potassium - ABG Lab 4.13 mmol/L (3.70-5.30); pH, Arterial 7.41 (7.35-7.45)
[2021-06-05 08:38] LABS: Puncture Site LRA
[2021-06-05 08:39] LABS: ALV-art Gradient 71.215 mmHg (0-20)
[2021-06-05] MEDS ORDERED: Heparin 10,000 UNITS/ 10 ML VIAL ONE (09:05)
[2021-06-05] MEDS: Octreotide Acetate 100 MCG/ML VIAL SLOW IVP SCH ×2 (14:13→22:12)
[2021-06-05] MEDS: Multivitamins, Adult 10 ML, TRACE ELEMENT CONCENTRATE 1 ML in D15W-AA 5% with Lytes 2,0... IV SCH (14:40)
[2021-06-05] MEDS: Meropenem 500 MG in Sodium Chloride 0.9% 100 ML IVPB SCH (15:17)
[2021-06-05] MEDS: Morphine 4 MG/ML VIAL SLOW IVP PRN ×3 (18:05→23:24)
[2021-06-06] MEDS: Linezolid 600 MG in Premix Bag 1 BAG IVPB SCH ×2 (03:58→14:19)
[2021-06-06] MEDS: Morphine 4 MG/ML VIAL SLOW IVP PRN (03:58)
[2021-06-06] MEDS: Dexmedetomidine 1,000 MCG in Sodium Chloride 0.9% 250 ML 240 ML IVPB SCH ×3 (03:58→15:36)
[2021-06-06] MEDS: Lorazepam 2 MG/ML VIAL SLOW IVP PRN ×3 (03:59→20:47)
[2021-06-06 04:41] LABS: Anion Gap 13 mmol/L (10-20); BUN (Urea Nitrogen) 32 mg/dL (7.0-18.7); Calc. Creatinine Clearance 51 mL/min (70-130); Calcium 7.7 mg/dL (7.8-10.44); Carbon Dioxide 26 mmol/L (22-29); Chloride 99 mmol/L (98-107); Glucose 198 mg/dL (70-105); Potassium 4.3 mmol/L (3.5-5.1); Sodium 134 mmol/L (136-145)
[2021-06-06 05:17] LABS: Anisocytosis SLIGHT = 6-15 cells (100X) (0-5/hpf); Band 5 % (5-11); Eosinophils 5 % (0-10); Hemoglobin 7.9 g/dL (12.0-16.0); Lymphocytes 19 % (21-51); MDiff Complete? YES; Mean Corpuscular HGB CONC 32.7 g/dL (32.0-36.0); Mean Corpuscular Hemoglobin 27.7 pg (27.0-31.0); Mean Corpuscular Volume 84.7 fL (78.0-98.0); Mean Platelet Volume 7.8 fL (7.4-10.4); Monocytes 6 % (0-10); Neutrophil 65 % (42-75); Platelet Count 385 thou/uL (130-400); Platelet Morphology Comment Appears Adequate; RBC Distribution Width 18.6 % (11.5-14.5); Red Blood Cell (RBC) Count 2.85 mill/uL (4.20-5.40); White Blood Cell (WBC) Count 10.5 thou/uL (4.8-10.8)
[2021-06-06] MEDS: Insulin Regular 300 UNITS/3 ML VIAL SC PRN ×3 (05:17→16:19)
[2021-06-06] MEDS: Octreotide Acetate 100 MCG/ML VIAL SLOW IVP SCH ×3 (05:17→20:47)
[2021-06-06] MEDS: fentaNYL Citrate/PF 2,000 MCG in Sodium Chloride 0.9% 60 ML IV SCH ×2 (08:53→17:34)
[2021-06-06] MEDS: Pantoprazole 40 MG VIAL IVP SCH (08:54)
[2021-06-06] MEDS: Heparin 5,000 UNITS/ML VIAL SC SCH ×3 (09:07→20:47)
[2021-06-06] MEDS: Fluconazole In NaCl,Iso-Osm 200 MG in Premix Bag 1 BAG IVPB SCH (09:07)
[2021-06-06] MEDS ORDERED: Heparin 10,000 UNITS/ 10 ML VIAL ONE (09:23)
[2021-06-06 11:23] LABS: Phosphorus 4.9 mg/dL (2.3-4.7)
[2021-06-06 11:25] LABS: Magnesium 1.9 mg/dL (1.6-2.6)
[2021-06-06] MEDS: Multivitamins, Adult 10 ML, TRACE ELEMENT CONCENTRATE 1 ML in D15W-AA 5% with Lytes 2,0... IV SCH (14:28)
[2021-06-06] MEDS: Fat Emulsion 250 ML IVPB SCH (14:28)
[2021-06-06] MEDS: Meropenem 500 MG in Sodium Chloride 0.9% 100 ML IVPB SCH (15:42)
[2021-06-06] MEDS: Propofol 1,000 MG/100 ML VIAL IV PRN ×2 (15:42→20:47)
[2021-06-07] MEDS: Propofol 1,000 MG/100 ML VIAL IV PRN ×5 (02:01→20:09)
[2021-06-07] MEDS: Linezolid 600 MG in Premix Bag 1 BAG IVPB SCH ×2 (04:30→16:03)
[2021-06-07 05:33] LABS: Band 7 % (5-11); Eosinophils 7 % (0-10); Hemoglobin 7.6 g/dL (12.0-16.0); Lymphocytes 16 % (21-51); MDiff Complete? YES; Mean Corpuscular HGB CONC 32.8 g/dL (32.0-36.0); Mean Corpuscular Hemoglobin 27.8 pg (27.0-31.0); Mean Corpuscular Volume 84.6 fL (78.0-98.0); Mean Platelet Volume 7.7 fL (7.4-10.4); Monocytes 5 % (0-10); Neutrophil 64 % (42-75); Platelet Count 366 thou/uL (130-400); Platelet Morphology Comment Appears Adequate; RBC Distribution Width 18.6 % (11.5-14.5); RBC Morphology Normal; Red Blood Cell (RBC) Count 2.73 mill/uL (4.20-5.40); White Blood Cell (WBC) Count 9.9 thou/uL (4.8-10.8)
[2021-06-07] MEDS: Octreotide Acetate 100 MCG/ML VIAL SLOW IVP SCH ×3 (06:01→21:08)
[2021-06-07 07:35] LABS: Actual Bicarbonate (HCO3a) 20.9 mEq/L (22-28); Base Excess (BEa) -2.1 mEq/L (-2.0 to +3.0); CO2 Tension 28.6 mmHg (35.0-45.0); Calcium, Ionized (arterial) 1.08 mmol/L (1.12-1.30); Carboxyhemoglobin (COHb) 0.9 gm% (0.0-3.0); O2 Tension (PaO2), arterial 96.2 mmHg (80.0-100.0); Potassium - ABG Lab 4.33 mmol/L (3.70-5.30); pH, Arterial 7.48 (7.35-7.45)
[2021-06-07 07:38] LABS: Puncture Site RRA
[2021-06-07] MEDS: Fluconazole In NaCl,Iso-Osm 200 MG in Premix Bag 1 BAG IVPB SCH (08:35)
[2021-06-07] MEDS: Heparin 5,000 UNITS/ML VIAL SC SCH ×3 (08:36→20:08)
[2021-06-07] MEDS: Pantoprazole 40 MG VIAL IVP SCH (08:36)
[2021-06-07] MEDS ORDERED: Heparin 10,000 UNITS/ 10 ML VIAL ONE (09:20)
[2021-06-07] MEDS: Insulin Regular 300 UNITS/3 ML VIAL SC PRN ×2 (10:29→16:03)
[2021-06-07] MEDS: Dexmedetomidine 1,000 MCG in Sodium Chloride 0.9% 250 ML 240 ML IVPB SCH (12:53)
[2021-06-07] MEDS: Multivitamins, Adult 10 ML, TRACE ELEMENT CONCENTRATE 1 ML in D15W-AA 5% with Lytes 2,0... IV SCH (14:05)
[2021-06-07] MEDS: fentaNYL Citrate/PF 2,000 MCG in Sodium Chloride 0.9% 60 ML IV SCH (14:34)
[2021-06-07] MEDS: Meropenem 500 MG in Sodium Chloride 0.9% 100 ML IVPB SCH (15:01)
[2021-06-07] MEDS: Norepinephrine 8 MG/0.9% NS 250 ML IVPB PRN (20:45)
[2021-06-08] MEDS: Propofol 1,000 MG/100 ML VIAL IV PRN ×7 (01:53→21:14)
[2021-06-08] MEDS: Lorazepam 2 MG/ML VIAL SLOW IVP PRN ×4 (02:40→21:13)
[2021-06-08] MEDS: Linezolid 600 MG in Premix Bag 1 BAG IVPB SCH ×2 (04:25→15:34)
[2021-06-08] MEDS: Insulin Regular 300 UNITS/3 ML VIAL SC PRN ×3 (04:46→15:40)
[2021-06-08 04:47] LABS: Anion Gap 12 mmol/L (10-20); BUN (Urea Nitrogen) 23 mg/dL (7.0-18.7); Calc. Creatinine Clearance 0 mL/min (70-130); Calcium 7.6 mg/dL (7.8-10.44); Carbon Dioxide 26 mmol/L (22-29); Chloride 99 mmol/L (98-107); Glucose 207 mg/dL (70-105); Sodium 133 mmol/L (136-145)
[2021-06-08 04:49] LABS: Anisocytosis SLIGHT = 6-15 cells (100X) (0-5/hpf); Eosinophils 5 % (0-10); Hemoglobin 7.7 g/dL (12.0-16.0); Lymphocytes 15 % (21-51); MDiff Complete? YES; Mean Corpuscular HGB CONC 33.4 g/dL (32.0-36.0); Mean Corpuscular Hemoglobin 28.1 pg (27.0-31.0); Mean Corpuscular Volume 84.1 fL (78.0-98.0); Mean Platelet Volume 7.3 fL (7.4-10.4); Monocytes 9 % (0-10); Neutrophil 70 % (42-75); Platelet Count 349 thou/uL (130-400); Platelet Morphology Comment Appears Adequate; Polychromasia SLIGHT = 2-3 cells (100X) (0-2/hpf); RBC Distribution Width 18.4 % (11.5-14.5); Red Blood Cell (RBC) Count 2.75 mill/uL (4.20-5.40); White Blood Cell (WBC) Count 11.4 thou/uL (4.8-10.8)
[2021-06-08] MEDS: Octreotide Acetate 100 MCG/ML VIAL SLOW IVP SCH ×3 (06:30→21:13)
[2021-06-08 07:47] LABS: Actual Bicarbonate (HCO3a) 24.8 mEq/L (22-28); Base Excess (BEa) 1.7 mEq/L (-2.0 to +3.0); CO2 Tension 32.5 mmHg (35.0-45.0); Calcium, Ionized (arterial) 1.05 mmol/L (1.12-1.30); Carboxyhemoglobin (COHb) 0.6 gm% (0.0-3.0); Hemoglobin (Hb) 7.7 g/dL (12.0-16.0); O2 Tension (PaO2), arterial 95.4 mmHg (80.0-100.0); Potassium - ABG Lab 3.81 mmol/L (3.70-5.30)
[2021-06-08 07:51] LABS: Puncture Site RBA
[2021-06-08 07:52] LABS: ALV-art Gradient 63.615 mmHg (0-20)
[2021-06-08] MEDS: Fluconazole In NaCl,Iso-Osm 200 MG in Premix Bag 1 BAG IVPB SCH (08:04)
[2021-06-08] MEDS: Pantoprazole 40 MG VIAL IVP SCH (08:04)
[2021-06-08] MEDS: Heparin 5,000 UNITS/ML VIAL SC SCH ×3 (08:04→21:14)
[2021-06-08] MEDS: Dexmedetomidine 1,000 MCG in Sodium Chloride 0.9% 250 ML 240 ML IVPB SCH ×2 (10:05→21:13)
[2021-06-08] MEDS: fentaNYL Citrate/PF 2,000 MCG in Sodium Chloride 0.9% 60 ML IV SCH (10:12)
[2021-06-08] MEDS: Multivitamins, Adult 10 ML, TRACE ELEMENT CONCENTRATE 1 ML in D15W-AA 5% with Lytes 2,0... IV SCH (14:29)
[2021-06-08] MEDS: Meropenem 500 MG in Sodium Chloride 0.9% 100 ML IVPB SCH (15:34)
[2021-06-09] MEDS: Linezolid 600 MG in Premix Bag 1 BAG IVPB SCH ×2 (04:25→15:36)
[2021-06-09] MEDS: Octreotide Acetate 100 MCG/ML VIAL SLOW IVP SCH (05:40)
[2021-06-09] MEDS: Insulin Regular 300 UNITS/3 ML VIAL SC PRN ×2 (06:28→10:42)
[2021-06-09] MEDS: fentaNYL Citrate/PF 2,000 MCG in Sodium Chloride 0.9% 60 ML IV SCH ×2 (06:56→23:06)
[2021-06-09 08:36] LABS: Hemoglobin 7.4 g/dL (12.0-16.0); Mean Corpuscular HGB CONC 33.2 g/dL (32.0-36.0); Mean Corpuscular Hemoglobin 28.2 pg (27.0-31.0); Mean Platelet Volume 7.3 fL (7.4-10.4); Platelet Count 324 thou/uL (130-400); RBC Distribution Width 18.7 % (11.5-14.5); Red Blood Cell (RBC) Count 2.62 mill/uL (4.20-5.40); White Blood Cell (WBC) Count 11.2 thou/uL (4.8-10.8)
[2021-06-09 08:53] LABS: Anion Gap 13 mmol/L (10-20); BUN (Urea Nitrogen) 36 mg/dL (7.0-18.7); Calc. Creatinine Clearance 45 mL/min (70-130); Calcium 7.8 mg/dL (7.8-10.44); Carbon Dioxide 23 mmol/L (22-29); Chloride 101 mmol/L (98-107); Glucose 210 mg/dL (70-105); Potassium 4.3 mmol/L (3.5-5.1); Sodium 133 mmol/L (136-145)
[2021-06-09] MEDS: Propofol 1,000 MG/100 ML VIAL IV PRN ×4 (09:42→20:25)
[2021-06-09] MEDS: Heparin 5,000 UNITS/ML VIAL SC SCH ×3 (09:42→20:25)
[2021-06-09] MEDS: Fluconazole In NaCl,Iso-Osm 200 MG in Premix Bag 1 BAG IVPB SCH (09:42)
[2021-06-09] MEDS: Pantoprazole 40 MG VIAL IVP SCH (09:42)
[2021-06-09 10:27] LABS: Band 30 % (5-11); Eosinophils 4 % (0-10); Lymphocytes 15 % (21-51); MDiff Complete? YES; Metamyelocyte 3 % (0-0); Monocytes 8 % (0-10); Myelocyte 3 % (0-0); Neutrophil 37 % (42-75); Platelet Morphology Comment Appears Adequate; Polychromasia SLIGHT = 2-3 cells (100X) (0-2/hpf)
[2021-06-09] MEDS ORDERED: D5W-AA 4.25% with LYTES 1,000 ML IV SCH (13:00)
[2021-06-09] MEDS: Dexmedetomidine 1,000 MCG in Sodium Chloride 0.9% 250 ML 240 ML IVPB SCH (14:18)
[2021-06-09] MEDS: EPOETIN ALFA-EPBX (ESRD) 10,000 UNIT/ML VIAL SC SCH (14:19)
[2021-06-09] MEDS: Meropenem 500 MG in Sodium Chloride 0.9% 100 ML IVPB SCH (15:36)
[2021-06-09] MEDS: Lorazepam 2 MG/ML VIAL SLOW IVP PRN (20:25)
[2021-06-10] MEDS: Lorazepam 2 MG/ML VIAL SLOW IVP PRN ×4 (01:25→20:55)
[2021-06-10] MEDS: Propofol 1,000 MG/100 ML VIAL IV PRN ×5 (01:25→20:55)
[2021-06-10] MEDS: Linezolid 600 MG in Premix Bag 1 BAG IVPB SCH ×2 (03:27→17:21)
[2021-06-10 07:23] LABS: Anion Gap 20 mmol/L (10-20); BUN (Urea Nitrogen) 42 mg/dL (7.0-18.7); Calc. Creatinine Clearance 43 mL/min (70-130); Calcium 7.8 mg/dL (7.8-10.44); Carbon Dioxide 17 mmol/L (22-29); Chloride 102 mmol/L (98-107); Glucose 150 mg/dL (70-105); Potassium 6.8 mmol/L (3.5-5.1); Sodium 132 mmol/L (136-145)
[2021-06-10 07:32] LABS: Hemoglobin 7.3 g/dL (12.0-16.0); Mean Corpuscular HGB CONC 31.3 g/dL (32.0-36.0); Mean Corpuscular Hemoglobin 26.3 pg (27.0-31.0); Mean Platelet Volume 7.6 fL (7.4-10.4); Platelet Count 332 thou/uL (130-400); RBC Distribution Width 18.9 % (11.5-14.5); Red Blood Cell (RBC) Count 2.76 mill/uL (4.20-5.40); White Blood Cell (WBC) Count 13.6 thou/uL (4.8-10.8)
[2021-06-10 07:53] LABS: Actual Bicarbonate (HCO3a) 23.2 mEq/L (22-28); Base Excess (BEa) -1.1 mEq/L (-2.0 to +3.0); CO2 Tension 36.7 mmHg (35.0-45.0); Hemoglobin (Hb) 8.1 g/dL (12.0-16.0); O2 Tension (PaO2), arterial 83.1 mmHg (80.0-100.0); Potassium - ABG Lab 4.77 mmol/L (3.70-5.30); pH, Arterial 7.42 (7.35-7.45)
[2021-06-10 07:56] LABS: Puncture Site LRA
[2021-06-10 07:57] LABS: ALV-art Gradient 70.665 mmHg (0-20)
[2021-06-10 08:27] LABS: Band 22 % (5-11); Eosinophils 9 % (0-10); Hypochromia SLIGHT = 6-15 cells (100X) (0-5/hpf); Lymphocytes 20 % (21-51); MDiff Complete? YES; Metamyelocyte 3 % (0-0); Monocytes 8 % (0-10); Myelocyte 4 % (0-0); Neutrophil 34 % (42-75); Ovalocytes SLIGHT = 2-5 cells (100X) (0-1/hpf); Polychromasia SLIGHT = 2-3 cells (100X) (0-2/hpf)
[2021-06-10] MEDS: Heparin 5,000 UNITS/ML VIAL SC SCH ×3 (08:34→20:55)
[2021-06-10] MEDS: Fluconazole In NaCl,Iso-Osm 200 MG in Premix Bag 1 BAG IVPB SCH (08:34)
[2021-06-10] MEDS: Pantoprazole 40 MG VIAL IVP SCH (08:34)
[2021-06-10] MEDS ORDERED: Heparin 10,000 UNITS/ 10 ML VIAL ONE (09:45)
[2021-06-10] MEDS: Amino Acids 4.25 %/Dextrose 5% 1,000 ML IV SCH (11:10)
[2021-06-10] MEDS: fentaNYL Citrate/PF 2,000 MCG in Sodium Chloride 0.9% 60 ML IV SCH (13:01)
[2021-06-10] MEDS: Dexmedetomidine 1,000 MCG in Sodium Chloride 0.9% 250 ML 240 ML IVPB SCH (17:15)
[2021-06-10] MEDS: Acetaminophen 650 MG Suppository PR PRN (17:22)
[2021-06-10] MEDS: Meropenem 500 MG in Sodium Chloride 0.9% 100 ML IVPB SCH (17:28)
[2021-06-10 18:06] LABS: Potassium 3.8 mmol/L (3.5-5.1)
[2021-06-11] MEDS: Dexmedetomidine 1,000 MCG in Sodium Chloride 0.9% 250 ML 240 ML IVPB SCH ×2 (03:44→17:23)
[2021-06-11] MEDS: Linezolid 600 MG in Premix Bag 1 BAG IVPB SCH ×2 (03:45→15:19)
[2021-06-11] MEDS: Propofol 1,000 MG/100 ML VIAL IV PRN ×4 (03:46→23:49)
[2021-06-11] MEDS: Lorazepam 2 MG/ML VIAL SLOW IVP PRN ×5 (03:46→23:49)
[2021-06-11 04:25] LABS: Anion Gap 15 mmol/L (10-20); BUN (Urea Nitrogen) 20 mg/dL (7.0-18.7); Calc. Creatinine Clearance 63 mL/min (70-130); Calcium 7.7 mg/dL (7.8-10.44); Carbon Dioxide 24 mmol/L (22-29); Chloride 101 mmol/L (98-107); Glucose 131 mg/dL (70-105); Potassium 4.3 mmol/L (3.5-5.1); Sodium 136 mmol/L (136-145)
[2021-06-11] MEDS: fentaNYL Citrate/PF 2,000 MCG in Sodium Chloride 0.9% 60 ML IV SCH (04:50)
[2021-06-11 05:00] LABS: Anisocytosis MODERATE=16-30 cells (100X) (0-5/hpf); Band 26 % (5-11); Eosinophils 12 % (0-10); Hypochromia SLIGHT = 6-15 cells (100X) (0-5/hpf); Lymphocytes 10 % (21-51); MDiff Complete? YES; Mean Corpuscular HGB CONC 33.7 g/dL (32.0-36.0); Mean Corpuscular Hemoglobin 28.5 pg (27.0-31.0); Mean Corpuscular Volume 84.6 fL (78.0-98.0); Mean Platelet Volume 7.1 fL (7.4-10.4); Monocytes 9 % (0-10); Myelocyte 2 % (0-0); Neutrophil 41 % (42-75); Platelet Count 294 thou/uL (130-400); Platelet Morphology Comment Appears Adequate; Polychromasia SLIGHT = 2-3 cells (100X) (0-2/hpf); RBC Distribution Width 18.6 % (11.5-14.5); Red Blood Cell (RBC) Count 2.46 mill/uL (4.20-5.40)
[2021-06-11 08:02] LABS: Actual Bicarbonate (HCO3a) 26.7 mEq/L (22-28); Base Excess (BEa) 2.5 mEq/L (-2.0 to +3.0); CO2 Tension 39.3 mmHg (35.0-45.0); Calcium, Ionized (arterial) 1.07 mmol/L (1.12-1.30); Carboxyhemoglobin (COHb) 1.4 gm% (0.0-3.0); Hemoglobin (Hb) 6.5 g/dL (12.0-16.0); O2 Tension (PaO2), arterial 87.5 mmHg (80.0-100.0); Potassium - ABG Lab 3.77 mmol/L (3.70-5.30); pH, Arterial 7.45 (7.35-7.45)
[2021-06-11 08:11] LABS: Puncture Site RRA
[2021-06-11 08:12] LABS: ALV-art Gradient 63.015 mmHg (0-20)
[2021-06-11] MEDS: Heparin 5,000 UNITS/ML VIAL SC SCH (09:02)
[2021-06-11] MEDS: Pantoprazole 40 MG VIAL IVP SCH (09:04)
[2021-06-11] MEDS: Fluconazole In NaCl,Iso-Osm 200 MG in Premix Bag 1 BAG IVPB SCH (09:04)
[2021-06-11] MEDS: Amino Acids 4.25 %/Dextrose 5% 1,000 ML IV SCH (10:24)
[2021-06-11] MEDS ORDERED: EPINEPHrine 1 MG/ML AMP ONE (10:44)
[2021-06-11] MEDS ORDERED: Bupivacaine PF 0.5% 30 ML VIAL ONE (10:44)
[2021-06-11] MEDS ORDERED: PROPOFOL 200 MG/20 ML VIAL ONE (12:06)
[2021-06-11] MEDS ORDERED: Rocuronium Bromide 10 MG/ML (10ML VIAL) ONE (12:06)
[2021-06-11 14:56] LABS: Potassium 4.1 mmol/L (3.5-5.1)
[2021-06-11] MEDS: Meropenem 500 MG in Sodium Chloride 0.9% 100 ML IVPB SCH (16:49)
[2021-06-12 01:06] LABS: SARS-CoV-2 PCR by NAA Not Detected (NotDetected)
[2021-06-12] MEDS: fentaNYL Citrate/PF 2,000 MCG in Sodium Chloride 0.9% 60 ML IV SCH (04:08)
[2021-06-12] MEDS: Linezolid 600 MG in Premix Bag 1 BAG IVPB SCH ×2 (04:18→15:30)
[2021-06-12] MEDS: Propofol 1,000 MG/100 ML VIAL IV PRN ×4 (04:19→20:38)
[2021-06-12] MEDS: Dexmedetomidine 1,000 MCG in Sodium Chloride 0.9% 250 ML 240 ML IVPB SCH ×2 (04:33→13:40)
[2021-06-12 05:19] LABS: Anion Gap 13 mmol/L (10-20); BUN (Urea Nitrogen) 26 mg/dL (7.0-18.7); Calc. Creatinine Clearance 54 mL/min (70-130); Carbon Dioxide 25 mmol/L (22-29); Chloride 102 mmol/L (98-107); Glucose 119 mg/dL (70-105); Potassium 3.8 mmol/L (3.5-5.1); Sodium 136 mmol/L (136-145)
[2021-06-12 05:35] LABS: Anisocytosis MODERATE=16-30 cells (100X) (0-5/hpf); Band 14 % (5-11); Eosinophils 13 % (0-10); Hemoglobin 7.7 g/dL (12.0-16.0); Lymphocytes 19 % (21-51); MDiff Complete? YES; Mean Corpuscular HGB CONC 33.4 g/dL (32.0-36.0); Mean Corpuscular Hemoglobin 28.6 pg (27.0-31.0); Mean Corpuscular Volume 85.7 fL (78.0-98.0); Mean Platelet Volume 6.9 fL (7.4-10.4); Monocytes 5 % (0-10); Myelocyte 4 % (0-0); Neutrophil 45 % (42-75); Platelet Count 295 thou/uL (130-400); Platelet Morphology Comment Appears Adequate; Polychromasia SLIGHT = 2-3 cells (100X) (0-2/hpf); RBC Distribution Width 18.1 % (11.5-14.5); Red Blood Cell (RBC) Count 2.68 mill/uL (4.20-5.40); White Blood Cell (WBC) Count 11.3 thou/uL (4.8-10.8)
[2021-06-12 08:43] LABS: Actual Bicarbonate (HCO3a) 24.1 mEq/L (22-28); Base Excess (BEa) 0.3 mEq/L (-2.0 to +3.0); CO2 Tension 35.1 mmHg (35.0-45.0); Calcium, Ionized (arterial) 1.06 mmol/L (1.12-1.30); Carboxyhemoglobin (COHb) 0.7 gm% (0.0-3.0); Hemoglobin (Hb) 7.9 g/dL (12.0-16.0); Potassium - ABG Lab 3.81 mmol/L (3.70-5.30); pH, Arterial 7.45 (7.35-7.45)
[2021-06-12 08:44] LABS: ALV-art Gradient 72.765 mmHg (0-20); Puncture Site RRA
[2021-06-12] MEDS: Pantoprazole 40 MG VIAL IVP SCH (09:12)
[2021-06-12] MEDS: Fluconazole In NaCl,Iso-Osm 200 MG in Premix Bag 1 BAG IVPB SCH (09:12)
[2021-06-12] MEDS: Amino Acids 4.25 %/Dextrose 5% 1,000 ML IV SCH (09:54)
[2021-06-12] MEDS: Lorazepam 2 MG/ML VIAL SLOW IVP PRN (10:13)
[2021-06-12] MEDS: Meropenem 500 MG in Sodium Chloride 0.9% 100 ML IVPB SCH (16:58)
[2021-06-13] MEDS: Lorazepam 2 MG/ML VIAL SLOW IVP PRN ×4 (00:08→19:51)
[2021-06-13] MEDS: Propofol 1,000 MG/100 ML VIAL IV PRN ×5 (00:13→21:31)
[2021-06-13] MEDS: Dexmedetomidine 1,000 MCG in Sodium Chloride 0.9% 250 ML 240 ML IVPB SCH ×3 (00:47→21:32)
[2021-06-13] MEDS: fentaNYL Citrate/PF 2,000 MCG in Sodium Chloride 0.9% 60 ML IV SCH ×2 (01:24→22:15)
[2021-06-13] MEDS: Linezolid 600 MG in Premix Bag 1 BAG IVPB SCH ×2 (04:37→15:00)
[2021-06-13 04:46] LABS: Anion Gap 13 mmol/L (10-20); BUN (Urea Nitrogen) 30 mg/dL (7.0-18.7); Calc. Creatinine Clearance 53 mL/min (70-130); Carbon Dioxide 24 mmol/L (22-29); Chloride 106 mmol/L (98-107); Glucose 127 mg/dL (70-105); Hemoglobin 7.6 g/dL (12.0-16.0); Mean Corpuscular HGB CONC 33.5 g/dL (32.0-36.0); Mean Corpuscular Hemoglobin 28.7 pg (27.0-31.0); Mean Corpuscular Volume 85.7 fL (78.0-98.0); Mean Platelet Volume 6.3 fL (7.4-10.4); Platelet Count 309 thou/uL (130-400); Potassium 3.7 mmol/L (3.5-5.1); Red Blood Cell (RBC) Count 2.66 mill/uL (4.20-5.40); Sodium 139 mmol/L (136-145)
[2021-06-13] MEDS: Amino Acids 4.25 %/Dextrose 5% 1,000 ML IV SCH ×2 (05:17→21:31)
[2021-06-13 05:47] LABS: Band 9 % (5-11); Eosinophils 10 % (0-10); Lymphocytes 25 % (21-51); MDiff Complete? YES; Monocytes 9 % (0-10); Neutrophil 47 % (42-75)
[2021-06-13 07:02] LABS: Actual Bicarbonate (HCO3a) 23.7 mEq/L (22-28); Base Excess (BEa) -0.8 mEq/L (-2.0 to +3.0); CO2 Tension 38.3 mmHg (35.0-45.0); Carboxyhemoglobin (COHb) 0.4 gm% (0.0-3.0); Hemoglobin (Hb) 8.8 g/dL (12.0-16.0); Potassium - ABG Lab 3.63 mmol/L (3.70-5.30); pH, Arterial 7.41 (7.35-7.45)
[2021-06-13 07:26] LABS: Puncture Site RRA
[2021-06-13 07:27] LABS: ALV-art Gradient 66.765 mmHg (0-20)
[2021-06-13] MEDS: Pantoprazole 40 MG VIAL IVP SCH (08:17)
[2021-06-13] MEDS: Fluconazole In NaCl,Iso-Osm 200 MG in Premix Bag 1 BAG IVPB SCH (09:54)
[2021-06-13] MEDS: Meropenem 500 MG in Sodium Chloride 0.9% 100 ML IVPB SCH (16:23)
[2021-06-14] MEDS: Lorazepam 2 MG/ML VIAL SLOW IVP PRN ×4 (04:00→22:48)
[2021-06-14] MEDS: Propofol 1,000 MG/100 ML VIAL IV PRN ×4 (04:00→22:06)
[2021-06-14 04:04] LABS: Hemoglobin 8.5 g/dL (12.0-16.0); Mean Corpuscular HGB CONC 33.5 g/dL (32.0-36.0); Mean Corpuscular Hemoglobin 28.9 pg (27.0-31.0); Mean Corpuscular Volume 86.4 fL (78.0-98.0); Mean Platelet Volume 6.3 fL (7.4-10.4); Platelet Count 336 thou/uL (130-400); RBC Distribution Width 17.5 % (11.5-14.5); Red Blood Cell (RBC) Count 2.93 mill/uL (4.20-5.40); White Blood Cell (WBC) Count 12.3 thou/uL (4.8-10.8)
[2021-06-14 04:10] LABS: Anion Gap 14 mmol/L (10-20); BUN (Urea Nitrogen) 31 mg/dL (7.0-18.7); Calc. Creatinine Clearance 56 mL/min (70-130); Calcium 8.1 mg/dL (7.8-10.44); Carbon Dioxide 23 mmol/L (22-29); Chloride 107 mmol/L (98-107); Glucose 121 mg/dL (70-105); Potassium 3.7 mmol/L (3.5-5.1); Sodium 140 mmol/L (136-145)
[2021-06-14] MEDS: Linezolid 600 MG in Premix Bag 1 BAG IVPB SCH (04:31)
[2021-06-14 04:51] LABS: Band 14 % (5-11); Eosinophils 14 % (0-10); Lymphocytes 10 % (21-51); MDiff Complete? YES; Monocytes 14 % (0-10); Neutrophil 48 % (42-75)
[2021-06-14] MEDS: Dexmedetomidine 1,000 MCG in Sodium Chloride 0.9% 250 ML 240 ML IVPB SCH ×2 (06:41→17:16)
[2021-06-14] MEDS: Pantoprazole 40 MG VIAL IVP SCH (07:34)
[2021-06-14 07:51] LABS: Actual Bicarbonate (HCO3a) 21.2 mEq/L (22-28); Base Excess (BEa) -3.3 mEq/L (-2.0 to +3.0); CO2 Tension 35.9 mmHg (35.0-45.0); Calcium, Ionized (arterial) 1.11 mmol/L (1.12-1.30); Carboxyhemoglobin (COHb) 0.3 gm% (0.0-3.0); Hemoglobin (Hb) 9.6 g/dL (12.0-16.0); O2 Tension (PaO2), arterial 98.7 mmHg (80.0-100.0); Potassium - ABG Lab 3.63 mmol/L (3.70-5.30); pH, Arterial 7.39 (7.35-7.45)
[2021-06-14 08:02] LABS: ALV-art Gradient 105.975 mmHg (0-20); Puncture Site RRA
[2021-06-14] MEDS: Fluconazole In NaCl,Iso-Osm 200 MG in Premix Bag 1 BAG IVPB SCH (08:49)
[2021-06-14] MEDS ORDERED: Fentanyl BOLUS 250 ML IVPB PRN (10:39)
[2021-06-14] MEDS: Lorazepam 2 MG/ML VIAL ONE ×2 (10:52→14:54)
[2021-06-14] MEDS: Amino Acids 4.25 %/Dextrose 5% 1,000 ML IV SCH (14:44)
[2021-06-14] MEDS ORDERED: Lorazepam 2 MG/ML VIAL ONE (14:54)
[2021-06-14] MEDS ORDERED: Morphine 4 MG/ML VIAL SLOW IVP PRN (15:00)
[2021-06-14] MEDS ORDERED: Morphine 2 MG/ML VIAL SLOW IVP PRN (15:00)
[2021-06-14] MEDS: Scopolamine 1.5 mg/72 hour Patch TOP SCH (15:17)
[2021-06-14] MEDS: fentaNYL Citrate/PF 2,000 MCG in Sodium Chloride 0.9% 60 ML IV SCH (15:18)
[2021-06-15] MEDS: Propofol 1,000 MG/100 ML VIAL IV PRN ×5 (03:11→21:09)
[2021-06-15] MEDS: Dexmedetomidine 1,000 MCG in Sodium Chloride 0.9% 250 ML 240 ML IVPB SCH ×2 (04:06→15:26)
[2021-06-15 05:28] LABS: Hemoglobin 7.6 g/dL (12.0-16.0); Mean Corpuscular HGB CONC 31.6 g/dL (32.0-36.0); Mean Corpuscular Hemoglobin 27.4 pg (27.0-31.0); Mean Corpuscular Volume 86.7 fL (78.0-98.0); Mean Platelet Volume 6.4 fL (7.4-10.4); Platelet Count 353 thou/uL (130-400); RBC Distribution Width 17.6 % (11.5-14.5); Red Blood Cell (RBC) Count 2.76 mill/uL (4.20-5.40); White Blood Cell (WBC) Count 11.6 thou/uL (4.8-10.8)
[2021-06-15 05:36] LABS: Anion Gap 14 mmol/L (10-20); BUN (Urea Nitrogen) 33 mg/dL (7.0-18.7); Calc. Creatinine Clearance 60 mL/min (70-130); Calcium 7.9 mg/dL (7.8-10.44); Carbon Dioxide 22 mmol/L (22-29); Chloride 109 mmol/L (98-107); Glucose 120 mg/dL (70-105); Potassium 3.8 mmol/L (3.5-5.1); Sodium 141 mmol/L (136-145)
[2021-06-15 06:23] LABS: Band 15 % (5-11); Eosinophils 7 % (0-10); Lymphocytes 15 % (21-51); MDiff Complete? YES; Monocytes 5 % (0-10); Neutrophil 58 % (42-75)
[2021-06-15] MEDS: fentaNYL Citrate/PF 2,000 MCG in Sodium Chloride 0.9% 60 ML IV SCH (07:28)
[2021-06-15 08:10] LABS: Actual Bicarbonate (HCO3a) 19.3 mEq/L (22-28); Base Excess (BEa) -4.4 mEq/L (-2.0 to +3.0); CO2 Tension 30.1 mmHg (35.0-45.0); Calcium, Ionized (arterial) 1.12 mmol/L (1.12-1.30); Carboxyhemoglobin (COHb) 0.9 gm% (0.0-3.0); Hemoglobin (Hb) 8.1 g/dL (12.0-16.0); O2 Tension (PaO2), arterial 96.7 mmHg (80.0-100.0); Potassium - ABG Lab 3.64 mmol/L (3.70-5.30); pH, Arterial 7.43 (7.35-7.45)
[2021-06-15] MEDS: Pantoprazole 40 MG VIAL IVP SCH (08:11)
[2021-06-15 08:28] LABS: ALV-art Gradient 79.575 mmHg (0-20); Puncture Site RRA
[2021-06-15] MEDS: Lorazepam 2 MG/ML VIAL SLOW IVP PRN ×2 (08:52→18:05)
[2021-06-15] MEDS: Amino Acids 4.25 %/Dextrose 5% 1,000 ML IV SCH (09:52)
[2021-06-15] MEDS: Haloperidol Lactate 5 MG/ML VIAL IM SCH ×3 (14:19→23:42)
[2021-06-16] MEDS: Propofol 1,000 MG/100 ML VIAL IV PRN ×5 (01:04→18:17)
[2021-06-16] MEDS: fentaNYL Citrate/PF 2,000 MCG in Sodium Chloride 0.9% 60 ML IV SCH ×2 (02:37→22:19)
[2021-06-16] MEDS: Haloperidol Lactate 5 MG/ML VIAL IM SCH ×6 (02:38→22:19)
[2021-06-16 04:21] LABS: Hemoglobin 7.4 g/dL (12.0-16.0); Mean Corpuscular Hemoglobin 26.9 pg (27.0-31.0); Mean Corpuscular Volume 86.7 fL (78.0-98.0); Mean Platelet Volume 6.1 fL (7.4-10.4); Platelet Count 365 thou/uL (130-400); RBC Distribution Width 17.3 % (11.5-14.5); Red Blood Cell (RBC) Count 2.75 mill/uL (4.20-5.40); White Blood Cell (WBC) Count 11.2 thou/uL (4.8-10.8)
[2021-06-16 04:29] LABS: Anion Gap 12 mmol/L (10-20); BUN (Urea Nitrogen) 33 mg/dL (7.0-18.7); Calc. Creatinine Clearance 66 mL/min (70-130); Calcium 8.3 mg/dL (7.8-10.44); Carbon Dioxide 21 mmol/L (22-29); Chloride 111 mmol/L (98-107); Glucose 118 mg/dL (70-105); Potassium 3.6 mmol/L (3.5-5.1); Sodium 140 mmol/L (136-145)
[2021-06-16 04:46] LABS: Band 10 % (5-11); Eosinophils 6 % (0-10); Lymphocytes 15 % (21-51); MDiff Complete? YES; Monocytes 9 % (0-10); Neutrophil 60 % (42-75)
[2021-06-16] MEDS: Amino Acids 4.25 %/Dextrose 5% 1,000 ML IV SCH ×2 (05:07→17:49)
[2021-06-16] MEDS: Dexmedetomidine 1,000 MCG in Sodium Chloride 0.9% 250 ML 240 ML IVPB SCH ×2 (06:23→17:49)
[2021-06-16 07:09] LABS: Actual Bicarbonate (HCO3a) 20.9 mEq/L (22-28); Base Excess (BEa) -3.5 mEq/L (-2.0 to +3.0); Calcium, Ionized (arterial) 1.17 mmol/L (1.12-1.30); Hemoglobin (Hb) 9.9 g/dL (12.0-16.0); O2 Tension (PaO2), arterial 89.8 mmHg (80.0-100.0); Potassium - ABG Lab 3.63 mmol/L (3.70-5.30); pH, Arterial 7.39 (7.35-7.45)
[2021-06-16 07:17] LABS: Puncture Site RRA
[2021-06-16] MEDS: Acetaminophen 650 MG Suppository PR PRN (08:42)
[2021-06-16] MEDS: Pantoprazole 40 MG VIAL IVP SCH (08:42)
[2021-06-16] MEDS: EPOETIN ALFA-EPBX (ESRD) 10,000 UNIT/ML VIAL SC SCH (16:18)
[2021-06-16] MEDS: Lorazepam 2 MG/ML VIAL SLOW IVP PRN (23:00)
[2021-06-17] MEDS: Propofol 1,000 MG/100 ML VIAL IV PRN ×4 (00:09→21:51)
[2021-06-17] MEDS: Amino Acids 4.25 %/Dextrose 5% 1,000 ML IV SCH ×2 (00:22→18:44)
[2021-06-17] MEDS: Haloperidol Lactate 5 MG/ML VIAL IM SCH ×6 (02:45→21:51)
[2021-06-17] MEDS: Dexmedetomidine 1,000 MCG in Sodium Chloride 0.9% 250 ML 240 ML IVPB SCH ×3 (04:12→23:18)
[2021-06-17 04:46] LABS: Anion Gap 14 mmol/L (10-20); BUN (Urea Nitrogen) 34 mg/dL (7.0-18.7); Calc. Creatinine Clearance 76 mL/min (70-130); Calcium 8.2 mg/dL (7.8-10.44); Carbon Dioxide 20 mmol/L (22-29); Chloride 111 mmol/L (98-107); Glucose 111 mg/dL (70-105); Potassium 3.5 mmol/L (3.5-5.1); Sodium 141 mmol/L (136-145)
[2021-06-17 04:49] LABS: Hemoglobin 7.4 g/dL (12.0-16.0); Mean Corpuscular Hemoglobin 27.7 pg (27.0-31.0); Mean Corpuscular Volume 86.8 fL (78.0-98.0); Mean Platelet Volume 6.4 fL (7.4-10.4); Platelet Count 356 thou/uL (130-400); RBC Distribution Width 17.4 % (11.5-14.5); Red Blood Cell (RBC) Count 2.68 mill/uL (4.20-5.40); White Blood Cell (WBC) Count 8.7 thou/uL (4.8-10.8)
[2021-06-17 06:10] LABS: Band 15 % (5-11); Eosinophils 4 % (0-10); Lymphocytes 24 % (21-51); MDiff Complete? YES; Monocytes 5 % (0-10); Neutrophil 52 % (42-75)
[2021-06-17 07:56] LABS: Actual Bicarbonate (HCO3a) 18.4 mEq/L (22-28); Base Excess (BEa) -6.1 mEq/L (-2.0 to +3.0); CO2 Tension 33.1 mmHg (35.0-45.0); Carboxyhemoglobin (COHb) 0.3 gm% (0.0-3.0); Hemoglobin (Hb) 10.6 g/dL (12.0-16.0); O2 Tension (PaO2), arterial 89.6 mmHg (80.0-100.0); Potassium - ABG Lab 3.61 mmol/L (3.70-5.30); pH, Arterial 7.36 (7.35-7.45)
[2021-06-17 07:57] LABS: ALV-art Gradient 82.925 mmHg (0-20); Puncture Site LRA
[2021-06-17] MEDS: Fluconazole In NaCl,Iso-Osm 200 MG in Premix Bag 1 BAG IVPB SCH (09:38)
[2021-06-17] MEDS: Pantoprazole 40 MG VIAL IVP SCH (09:38)
[2021-06-17] MEDS: ALPRAZolam 1 MG TAB PO SCH ×2 (14:43→20:27)
[2021-06-17] MEDS: Scopolamine 1.5 mg/72 hour Patch TOP SCH (14:43)
[2021-06-17] MEDS: fentaNYL Citrate/PF 2,000 MCG in Sodium Chloride 0.9% 60 ML IV SCH (16:38)
[2021-06-18] MEDS: Haloperidol Lactate 5 MG/ML VIAL IM SCH ×5 (02:23→19:21)
[2021-06-18 05:09] LABS: Hemoglobin 7.4 g/dL (12.0-16.0); Mean Corpuscular HGB CONC 32.1 g/dL (32.0-36.0); Mean Corpuscular Hemoglobin 27.6 pg (27.0-31.0); Mean Corpuscular Volume 85.8 fL (78.0-98.0); Mean Platelet Volume 6.2 fL (7.4-10.4); Platelet Count 375 thou/uL (130-400); RBC Distribution Width 17.3 % (11.5-14.5); Red Blood Cell (RBC) Count 2.68 mill/uL (4.20-5.40); White Blood Cell (WBC) Count 9.1 thou/uL (4.8-10.8)
[2021-06-18 05:11] LABS: Band 15 % (5-11); Eosinophils 2 % (0-10); Lymphocytes 18 % (21-51); MDiff Complete? YES; Monocytes 2 % (0-10); Neutrophil 63 % (42-75)
[2021-06-18 05:19] LABS: Anion Gap 12 mmol/L (10-20); BUN (Urea Nitrogen) 32 mg/dL (7.0-18.7); Calc. Creatinine Clearance 83 mL/min (70-130); Calcium 8.5 mg/dL (7.8-10.44); Carbon Dioxide 22 mmol/L (22-29); Chloride 113 mmol/L (98-107); Glucose 140 mg/dL (70-105); Potassium 3.5 mmol/L (3.5-5.1); Sodium 143 mmol/L (136-145)
[2021-06-18] MEDS: Dexmedetomidine 1,000 MCG in Sodium Chloride 0.9% 250 ML 240 ML IVPB SCH ×3 (06:30→19:53)
[2021-06-18 07:15] LABS: Actual Bicarbonate (HCO3a) 20.1 mEq/L (22-28); Base Excess (BEa) -4.7 mEq/L (-2.0 to +3.0); CO2 Tension 35.7 mmHg (35.0-45.0); Carboxyhemoglobin (COHb) 0.2 gm% (0.0-3.0); Hemoglobin (Hb) 9.3 g/dL (12.0-16.0); O2 Tension (PaO2), arterial 107.3 mmHg (80.0-100.0); Potassium - ABG Lab 3.54 mmol/L (3.70-5.30); pH, Arterial 7.37 (7.35-7.45)
[2021-06-18 07:44] LABS: Puncture Site RRA
[2021-06-18 07:45] LABS: ALV-art Gradient 97.625 mmHg (0-20)
[2021-06-18] MEDS: ALPRAZolam 1 MG TAB PO SCH ×3 (08:21→20:01)
[2021-06-18] MEDS: Pantoprazole 40 MG VIAL IVP SCH (08:21)
[2021-06-18] MEDS: Fluconazole In NaCl,Iso-Osm 200 MG in Premix Bag 1 BAG IVPB SCH (08:46)
[2021-06-18] MEDS ORDERED: Sodium Chloride 0.45% 1,000 ML IV SCH (09:45)
[2021-06-18] MEDS ORDERED: Potassium Chloride 40 MEQ in Premix Bag 1 BAG IVPB SCH (10:00)
[2021-06-18] MEDS: Lorazepam 2 MG/ML VIAL SLOW IVP PRN ×2 (10:23→20:01)
[2021-06-18] MEDS: fentaNYL Citrate/PF 2,000 MCG in Sodium Chloride 0.9% 60 ML IV SCH (10:39)
[2021-06-18] MEDS: Amino Acids 4.25 %/Dextrose 5% 1,000 ML IV SCH (14:02)
[2021-06-18 17:18] LABS: Potassium 3.8 mmol/L (3.5-5.1)
[2021-06-19] MEDS: Haloperidol Lactate 5 MG/ML VIAL IM SCH ×7 (00:15→21:48)
[2021-06-19] MEDS: Lorazepam 2 MG/ML VIAL SLOW IVP PRN ×2 (03:17→09:19)
[2021-06-19] MEDS: Dexmedetomidine 1,000 MCG in Sodium Chloride 0.9% 250 ML 240 ML IVPB SCH ×3 (04:15→20:35)
[2021-06-19] MEDS: fentaNYL Citrate/PF 2,000 MCG in Sodium Chloride 0.9% 60 ML IV SCH ×2 (04:42→23:10)
[2021-06-19 06:16] LABS: Hemoglobin 7.8 g/dL (12.0-16.0); Mean Corpuscular HGB CONC 32.4 g/dL (32.0-36.0); Mean Corpuscular Hemoglobin 27.9 pg (27.0-31.0); Mean Corpuscular Volume 86.1 fL (78.0-98.0); Mean Platelet Volume 6.4 fL (7.4-10.4); Platelet Count 340 thou/uL (130-400); RBC Distribution Width 17.2 % (11.5-14.5); Red Blood Cell (RBC) Count 2.81 mill/uL (4.20-5.40); White Blood Cell (WBC) Count 9.1 thou/uL (4.8-10.8)
[2021-06-19 06:30] LABS: Anion Gap 15 mmol/L (10-20); BUN (Urea Nitrogen) 29 mg/dL (7.0-18.7); Calc. Creatinine Clearance 99 mL/min (70-130); Calcium 8.4 mg/dL (7.8-10.44); Carbon Dioxide 20 mmol/L (22-29); Chloride 112 mmol/L (98-107); Glucose 143 mg/dL (70-105); Potassium 3.6 mmol/L (3.5-5.1); Sodium 143 mmol/L (136-145)
[2021-06-19] MEDS ORDERED: Potassium Chloride 40 MEQ in Premix Bag 1 BAG IVPB SCH (07:45)
[2021-06-19 08:46] LABS: Band 18 % (5-11); Eosinophils 9 % (0-10); Lymphocytes 20 % (21-51); MDiff Complete? YES; Metamyelocyte 1 % (0-0); Monocytes 9 % (0-10); Myelocyte 1 % (0-0); Neutrophil 41 % (42-75); Platelet Morphology Comment Appears Adequate; Polychromasia SLIGHT = 2-3 cells (100X) (0-2/hpf); Reactive Lymphocytes 1 % (0-10)
[2021-06-19] MEDS: Fluconazole In NaCl,Iso-Osm 200 MG in Premix Bag 1 BAG IVPB SCH (09:00)
[2021-06-19] MEDS: ALPRAZolam 1 MG TAB PO SCH ×3 (09:01→20:07)
[2021-06-19] MEDS: Pantoprazole 40 MG VIAL IVP SCH (09:01)
[2021-06-19] MEDS: Amino Acids 4.25 %/Dextrose 5% 1,000 ML IV SCH (09:27)
[2021-06-19] MEDS ORDERED: Bisacodyl 10 MG SUPP PR PRN (10:44)
[2021-06-19 11:28] LABS: SARS-CoV-2 PCR by NAA Not Detected (NotDetected)
[2021-06-19] MEDS: hydrALAZINE 20 MG/ML VIAL SLOW IVP PRN (20:07)
[2021-06-19] MEDS: Propofol 1,000 MG/100 ML VIAL IV PRN (21:54)
[2021-06-20] MEDS: Dexmedetomidine 1,000 MCG in Sodium Chloride 0.9% 250 ML 240 ML IVPB SCH ×2 (02:28→15:59)
[2021-06-20] MEDS: Haloperidol Lactate 5 MG/ML VIAL IM SCH ×6 (02:28→22:55)
[2021-06-20 05:11] LABS: Band 10 % (5-11); Eosinophils 5 % (0-10); Hemoglobin 7.7 g/dL (12.0-16.0); Hypochromia SLIGHT = 6-15 cells (100X) (0-5/hpf); Lymphocytes 13 % (21-51); MDiff Complete? YES; Mean Corpuscular HGB CONC 33.3 g/dL (32.0-36.0); Mean Corpuscular Hemoglobin 28.7 pg (27.0-31.0); Mean Corpuscular Volume 86.2 fL (78.0-98.0); Mean Platelet Volume 6.5 fL (7.4-10.4); Monocytes 14 % (0-10); Neutrophil 58 % (42-75); Platelet Count 342 thou/uL (130-400); Platelet Morphology Comment Appears Adequate; RBC Distribution Width 17.4 % (11.5-14.5); White Blood Cell (WBC) Count 9.2 thou/uL (4.8-10.8)
[2021-06-20 05:12] LABS: Anion Gap 11 mmol/L (10-20); BUN (Urea Nitrogen) 31 mg/dL (7.0-18.7); Calc. Creatinine Clearance 105 mL/min (70-130); Calcium 8.5 mg/dL (7.8-10.44); Carbon Dioxide 21 mmol/L (22-29); Chloride 111 mmol/L (98-107); Glucose 141 mg/dL (70-105); Magnesium 1.7 mg/dL (1.6-2.6); Phosphorus 3.5 mg/dL (2.3-4.7); Potassium 3.6 mmol/L (3.5-5.1); Sodium 139 mmol/L (136-145)
[2021-06-20] MEDS: Lorazepam 2 MG/ML VIAL SLOW IVP PRN ×2 (08:54→20:22)
[2021-06-20] MEDS: Pantoprazole 40 MG VIAL IVP SCH (08:55)
[2021-06-20] MEDS: ALPRAZolam 1 MG TAB PO SCH ×3 (08:55→20:22)
[2021-06-20] MEDS: Fluconazole In NaCl,Iso-Osm 200 MG in Premix Bag 1 BAG IVPB SCH (08:55)
[2021-06-20] MEDS ORDERED: Potassium Chloride 40 MEQ in Premix Bag 1 BAG IVPB SCH (11:00)
[2021-06-20] MEDS: Amino Acids 4.25 %/Dextrose 5% 1,000 ML IV SCH (12:28)
[2021-06-20] MEDS: Scopolamine 1.5 mg/72 hour Patch TOP SCH (14:36)
[2021-06-20] MEDS: fentaNYL Citrate/PF 2,000 MCG in Sodium Chloride 0.9% 60 ML IV SCH (23:16)
[2021-06-21] MEDS: Lorazepam 2 MG/ML VIAL SLOW IVP PRN ×6 (01:04→21:16)
[2021-06-21] MEDS: Dexmedetomidine 1,000 MCG in Sodium Chloride 0.9% 250 ML 240 ML IVPB SCH ×3 (01:05→21:51)
[2021-06-21] MEDS: Haloperidol Lactate 5 MG/ML VIAL IM SCH ×6 (03:11→21:16)
[2021-06-21 04:43] LABS: Anion Gap 11 mmol/L (10-20); BUN (Urea Nitrogen) 31 mg/dL (7.0-18.7); Calc. Creatinine Clearance 110 mL/min (70-130); Calcium 8.6 mg/dL (7.8-10.44); Carbon Dioxide 20 mmol/L (22-29); Chloride 113 mmol/L (98-107); Glucose 154 mg/dL (70-105); Magnesium 1.8 mg/dL (1.6-2.6); Phosphorus 3.5 mg/dL (2.3-4.7); Potassium 3.9 mmol/L (3.5-5.1); Sodium 140 mmol/L (136-145)
[2021-06-21 04:46] LABS: Anisocytosis SLIGHT = 6-15 cells (100X) (0-5/hpf); Band 13 % (5-11); Eosinophils 6 % (0-10); Lymphocytes 27 % (21-51); MDiff Complete? YES; Mean Corpuscular HGB CONC 33.1 g/dL (32.0-36.0); Mean Corpuscular Hemoglobin 28.6 pg (27.0-31.0); Mean Corpuscular Volume 86.4 fL (78.0-98.0); Mean Platelet Volume 7.1 fL (7.4-10.4); Monocytes 11 % (0-10); Neutrophil 42 % (42-75); Nucleated RBC 1 % (0); Platelet Count 324 thou/uL (130-400); Platelet Morphology Comment Appears Adequate; RBC Distribution Width 17.5 % (11.5-14.5); Red Blood Cell (RBC) Count 2.79 mill/uL (4.20-5.40); White Blood Cell (WBC) Count 9.4 thou/uL (4.8-10.8)
[2021-06-21] MEDS: Amino Acids 4.25 %/Dextrose 5% 1,000 ML IV SCH (07:36)
[2021-06-21 07:57] LABS: Actual Bicarbonate (HCO3a) 20.1 mEq/L (22-28); Base Excess (BEa) -4.4 mEq/L (-2.0 to +3.0); Calcium, Ionized (arterial) 1.22 mmol/L (1.12-1.30); Carboxyhemoglobin (COHb) 0.3 gm% (0.0-3.0); Hemoglobin (Hb) 9.3 g/dL (12.0-16.0); O2 Tension (PaO2), arterial 108.4 mmHg (80.0-100.0); Potassium - ABG Lab 3.91 mmol/L (3.70-5.30); pH, Arterial 7.38 (7.35-7.45)
[2021-06-21 08:07] LABS: Puncture Site RRA
[2021-06-21] MEDS: Pantoprazole 40 MG VIAL IVP SCH (09:11)
[2021-06-21] MEDS: ALPRAZolam 1 MG TAB PO SCH ×3 (09:11→21:16)
[2021-06-21] MEDS: Fluconazole In NaCl,Iso-Osm 200 MG in Premix Bag 1 BAG IVPB SCH (09:11)
[2021-06-21] MEDS ORDERED: Acetaminophen 325 MG/10.15 ML UDCUP PO PRN (09:44)
[2021-06-21] MEDS ORDERED: Potassium Phosphate 30 MMOL in Sodium Chloride 0.9% 500 ML IVPB SCH (11:00)
[2021-06-21] MEDS: fentaNYL Citrate/PF 2,000 MCG in Sodium Chloride 0.9% 60 ML IV SCH (13:29)
[2021-06-21] MEDS: Insulin Regular 300 UNITS/3 ML VIAL SC PRN (22:48)
[2021-06-22] MEDS: Sodium Chloride 0.9% 1,000 ML IV SCH ×2 (02:05→08:56)
[2021-06-22] MEDS: Haloperidol Lactate 5 MG/ML VIAL IM SCH ×7 (02:06→22:00)
[2021-06-22] MEDS ORDERED: diphenhydrAMINE 50 MG/ML VIAL ONE (02:22)
[2021-06-22] MEDS ORDERED: diphenhydrAMINE 50 MG/ML VIAL IVP SCH (02:30)
[2021-06-22] MEDS ORDERED: Famotidine/PF 20 mg/2ml Vial IVPB SCH (02:30)
[2021-06-22] MEDS: fentaNYL Citrate/PF 2,000 MCG in Sodium Chloride 0.9% 60 ML IV SCH ×2 (03:10→17:29)
[2021-06-22] MEDS: Lorazepam 2 MG/ML VIAL SLOW IVP PRN ×2 (05:39→23:33)
[2021-06-22 05:48] LABS: Band 13 % (5-11); Hemoglobin 9.2 g/dL (12.0-16.0); Hypochromia SLIGHT = 6-15 cells (100X) (0-5/hpf); Lymphocytes 10 % (21-51); MDiff Complete? YES; Mean Corpuscular Hemoglobin 28.7 pg (27.0-31.0); Mean Corpuscular Volume 86.9 fL (78.0-98.0); Mean Platelet Volume 7.8 fL (7.4-10.4); Monocytes 4 % (0-10); Neutrophil 73 % (42-75); Platelet Count 325 thou/uL (130-400); Platelet Morphology Comment Appears Adequate; RBC Distribution Width 17.8 % (11.5-14.5); White Blood Cell (WBC) Count 13.7 thou/uL (4.8-10.8)
[2021-06-22 05:55] LABS: Anion Gap 13 mmol/L (10-20); BUN (Urea Nitrogen) 33 mg/dL (7.0-18.7); Calc. Creatinine Clearance 101 mL/min (70-130); Calcium 8.3 mg/dL (7.8-10.44); Carbon Dioxide 19 mmol/L (22-29); Chloride 110 mmol/L (98-107); Glucose 151 mg/dL (70-105); Magnesium 1.5 mg/dL (1.6-2.6); Phosphorus 5.1 mg/dL (2.3-4.7); Potassium 4.2 mmol/L (3.5-5.1); Sodium 138 mmol/L (136-145)
[2021-06-22] MEDS: Amino Acids 4.25 %/Dextrose 5% 1,000 ML IV SCH (06:54)
[2021-06-22 08:23] LABS: Actual Bicarbonate (HCO3a) 16.7 mEq/L (22-28); Carboxyhemoglobin (COHb) 0.3 gm% (0.0-3.0); Hemoglobin (Hb) 9.5 g/dL (12.0-16.0); O2 Tension (PaO2), arterial 114.6 mmHg (80.0-100.0); Potassium - ABG Lab 4.35 mmol/L (3.70-5.30); pH, Arterial 7.35 (7.35-7.45)
[2021-06-22 08:25] LABS: Puncture Site RRA
[2021-06-22] MEDS: Dexmedetomidine 1,000 MCG in Sodium Chloride 0.9% 250 ML 240 ML IVPB SCH ×2 (08:56→17:28)
[2021-06-22] MEDS: Fluconazole In NaCl,Iso-Osm 200 MG in Premix Bag 1 BAG IVPB SCH (09:21)
[2021-06-22] MEDS: ALPRAZolam 1 MG TAB PO SCH ×3 (09:22→20:13)
[2021-06-22] MEDS: Pantoprazole 40 MG VIAL IVP SCH (09:22)
[2021-06-22] MEDS: Acetaminophen 650 MG/20.3 ML UDCUP PO PRN ×2 (10:45→16:16)
[2021-06-22] MEDS: Insulin Regular 300 UNITS/3 ML VIAL SC PRN ×2 (10:50→22:40)
[2021-06-22] MEDS ORDERED: Meropenem 1 GM in Sodium Chloride 0.9% 100 ML IVPB SCH ×2 (11:30→12:00)
[2021-06-22] MEDS ORDERED: MEROPENEM 1 GM/50 ML 1 GM in Premix Bag 1 BAG IVPB SCH ×2 (11:30→20:00)
[2021-06-22] MEDS ORDERED: Vancomycin HCl 1.5 GM in Sodium Chloride 0.9% 250 ML 250 ML IVPB SCH (12:00)
[2021-06-22] MEDS ORDERED: Albumin 25% 25 GM/100 ML BOT IVPB SCH (13:15)
[2021-06-22] MEDS: Norepinephrine 8 MG/0.9% NS 250 ML IVPB PRN (13:43)
[2021-06-22] MEDS ORDERED: Meropenem 2 GM in Sodium Chloride 0.9% 100 ML IVPB SCH (14:00)
[2021-06-22] MEDS: Meropenem 1 GM in Sodium Chloride 0.9% 100 ML IVPB SCH (20:12)
[2021-06-23] MEDS: Sodium Chloride 0.9% 1,000 ML IV SCH ×2 (01:11→09:03)
[2021-06-23] MEDS: Haloperidol Lactate 5 MG/ML VIAL IM SCH ×6 (01:12→21:37)
[2021-06-23] MEDS: Amino Acids 4.25 %/Dextrose 5% 1,000 ML IV SCH (02:14)
[2021-06-23] MEDS: Lorazepam 2 MG/ML VIAL SLOW IVP PRN (02:54)
[2021-06-23] MEDS: Meropenem 1 GM in Sodium Chloride 0.9% 100 ML IVPB SCH ×3 (03:35→22:37)
[2021-06-23 04:59] LABS: Anisocytosis SLIGHT = 6-15 cells (100X) (0-5/hpf); Band 10 % (5-11); Eosinophils 8 % (0-10); Hemoglobin 7.6 g/dL (12.0-16.0); Lymphocytes 21 % (21-51); MDiff Complete? YES; Mean Corpuscular HGB CONC 32.3 g/dL (32.0-36.0); Mean Corpuscular Hemoglobin 28.2 pg (27.0-31.0); Mean Corpuscular Volume 87.4 fL (78.0-98.0); Mean Platelet Volume 7.4 fL (7.4-10.4); Monocytes 2 % (0-10); Neutrophil 59 % (42-75); Platelet Count 260 thou/uL (130-400); Platelet Morphology Comment Appears Adequate; RBC Distribution Width 17.6 % (11.5-14.5); White Blood Cell (WBC) Count 12.3 thou/uL (4.8-10.8)
[2021-06-23 05:17] LABS: Anion Gap 10 mmol/L (10-20); BUN (Urea Nitrogen) 43 mg/dL (7.0-18.7); Calc. Creatinine Clearance 69 mL/min (70-130); Calcium 8.1 mg/dL (7.8-10.44); Carbon Dioxide 19 mmol/L (22-29); Chloride 113 mmol/L (98-107); Glucose 173 mg/dL (70-105); Sodium 138 mmol/L (136-145)
[2021-06-23] MEDS: fentaNYL Citrate/PF 2,000 MCG in Sodium Chloride 0.9% 60 ML IV SCH (07:47)
[2021-06-23 08:25] LABS: Actual Bicarbonate (HCO3a) 17.3 mEq/L (22-28); CO2 Tension 34.5 mmHg (35.0-45.0); Carboxyhemoglobin (COHb) 0.3 gm% (0.0-3.0); Hemoglobin (Hb) 8.9 g/dL (12.0-16.0); O2 Tension (PaO2), arterial 143.7 mmHg (80.0-100.0); Potassium - ABG Lab 4.21 mmol/L (3.70-5.30); pH, Arterial 7.32 (7.35-7.45)
[2021-06-23 08:29] LABS: ALV-art Gradient 62.725 mmHg (0-20); Puncture Site RRA
[2021-06-23] MEDS ORDERED: Lidocaine 1% w/Epinephrine 1:100K 20 ML VIAL ONE (08:58)
[2021-06-23] MEDS: Pantoprazole 40 MG VIAL IVP SCH (09:03)
[2021-06-23] MEDS: ALPRAZolam 1 MG TAB PO SCH ×3 (09:03→21:37)
[2021-06-23] MEDS: Fluconazole In NaCl,Iso-Osm 200 MG in Premix Bag 1 BAG IVPB SCH (09:03)
[2021-06-23] MEDS: Dexmedetomidine 1,000 MCG in Sodium Chloride 0.9% 250 ML 240 ML IVPB SCH ×2 (09:32→17:47)
[2021-06-23 10:09] LABS: Actual Bicarbonate (HCO3v) 18 mEq/L (22-28); Analyzer IN Cardio OR; Base Excess -9.2 mEq/L (-2.0 to +3.0); Calcium, Ionized (venous) 1.01 mmol/L (1.16-1.32); Chloride (VBG) 105 mmol/L (98-106); Hemoglobin (Hb) 9.6 g/dL (11.7-15.5); Potassium (VBG) 4.51 mmol/L (3.70-5.30); Sodium 130.4 mmol/L (133-146)
[2021-06-23 10:10] LABS: Analyzer IN Cardio OR; Base Excess -14.7 mEq/L (-2.0 to +3.0); Calcium, Ionized (venous) 1.06 mmol/L (1.16-1.32); Chloride (VBG) 107 mmol/L (98-106); Hemoglobin (Hb) 10.3 g/dL (11.7-15.5); Potassium (VBG) 4.68 mmol/L (3.70-5.30); Sodium 125.9 mmol/L (133-146)
[2021-06-23 10:11] LABS: pH (venous) 7.15 (7.32-7.43)
[2021-06-23 10:12] LABS: Actual Bicarbonate (HCO3v) 13 mEq/L (22-28)
[2021-06-23 10:14] LABS: pH (venous) 7.24 (7.32-7.43)
[2021-06-23] MEDS: Insulin Regular 300 UNITS/3 ML VIAL SC PRN ×2 (11:16→21:57)
[2021-06-23] MEDS ORDERED: Vancomycin HCl 1.5 GM in Sodium Chloride 0.9% 250 ML 300 ML IVPB SCH (12:00)
[2021-06-23 12:37] LABS: Vancomycin, Random 13.6 ug/mL (See Comment)
[2021-06-23] MEDS ORDERED: Vancomycin 1 GM in Premix Bag 1 BAG IVPB SCH (13:00)
[2021-06-23] MEDS: EPOETIN ALFA-EPBX (ESRD) 10,000 UNIT/ML VIAL SC SCH (13:16)
[2021-06-23] MEDS: Scopolamine 1.5 mg/72 hour Patch TOP SCH (14:41)
[2021-06-23] MEDS: Acetaminophen 650 MG/20.3 ML UDCUP PO PRN (15:38)
[2021-06-24] MEDS: fentaNYL Citrate/PF 2,000 MCG in Sodium Chloride 0.9% 60 ML IV SCH ×2 (00:12→10:54)
[2021-06-24] MEDS: Haloperidol Lactate 5 MG/ML VIAL IM SCH ×6 (03:13→21:06)
[2021-06-24] MEDS: Dexmedetomidine 1,000 MCG in Sodium Chloride 0.9% 250 ML 240 ML IVPB SCH ×3 (04:19→20:58)
[2021-06-24] MEDS: Insulin Regular 300 UNITS/3 ML VIAL SC PRN ×2 (04:19→22:10)
[2021-06-24 04:44] LABS: Band 7 % (5-11); Eosinophils 9 % (0-10); Hemoglobin 6.6 g/dL (12.0-16.0); Hypochromia SLIGHT = 6-15 cells (100X) (0-5/hpf); Lymphocytes 21 % (21-51); MDiff Complete? YES; Mean Corpuscular HGB CONC 32.3 g/dL (32.0-36.0); Mean Corpuscular Hemoglobin 28.4 pg (27.0-31.0); Mean Corpuscular Volume 87.9 fL (78.0-98.0); Mean Platelet Volume 7.7 fL (7.4-10.4); Monocytes 5 % (0-10); Neutrophil 58 % (42-75); Platelet Count 268 thou/uL (130-400); Platelet Morphology Comment Appears Adequate; RBC Distribution Width 17.5 % (11.5-14.5); Red Blood Cell (RBC) Count 2.32 mill/uL (4.20-5.40); White Blood Cell (WBC) Count 6.8 thou/uL (4.8-10.8)
[2021-06-24 04:49] LABS: Anion Gap 13 mmol/L (10-20); BUN (Urea Nitrogen) 46 mg/dL (7.0-18.7); Calc. Creatinine Clearance 78 mL/min (70-130); Calcium 9.2 mg/dL (7.8-10.44); Carbon Dioxide 18 mmol/L (22-29); Chloride 116 mmol/L (98-107); Glucose 190 mg/dL (70-105); Sodium 143 mmol/L (136-145)
[2021-06-24 08:33] LABS: Actual Bicarbonate (HCO3a) 17.6 mEq/L (22-28); Base Excess (BEa) -7.9 mEq/L (-2.0 to +3.0); CO2 Tension 35.8 mmHg (35.0-45.0); Calcium, Ionized (arterial) 1.29 mmol/L (1.12-1.30); Carboxyhemoglobin (COHb) 0.1 gm% (0.0-3.0); Hemoglobin (Hb) 11.2 g/dL (12.0-16.0); O2 Tension (PaO2), arterial 112.8 mmHg (80.0-100.0); Potassium - ABG Lab 4.59 mmol/L (3.70-5.30); pH, Arterial 7.31 (7.35-7.45)
[2021-06-24 08:34] LABS: Puncture Site LR
[2021-06-24] MEDS: ALPRAZolam 1 MG TAB PO SCH ×3 (08:37→21:06)
[2021-06-24] MEDS: Fluconazole In NaCl,Iso-Osm 200 MG in Premix Bag 1 BAG IVPB SCH (08:37)
[2021-06-24] MEDS: Pantoprazole 40 MG VIAL IVP SCH (08:37)
[2021-06-24] MEDS: Sodium Chloride 0.9% 1,000 ML IV SCH ×2 (08:37→19:30)
[2021-06-24] MEDS: Lorazepam 2 MG/ML VIAL SLOW IVP PRN (10:19)
[2021-06-24] MEDS: Acetaminophen 650 MG/20.3 ML UDCUP PO PRN (10:29)
[2021-06-24] MEDS: Meropenem 1 GM in Sodium Chloride 0.9% 100 ML IVPB SCH ×2 (11:18→22:57)
[2021-06-24 13:11] LABS: Vancomycin, Random 16.9 ug/mL (See Comment)
[2021-06-24] MEDS ORDERED: Vancomycin HCl 750 MG in Sodium Chloride 0.9% 250 ML 250 ML IVPB SCH (13:30)
[2021-06-25] MEDS: fentaNYL Citrate/PF 2,000 MCG in Sodium Chloride 0.9% 60 ML IV SCH ×2 (00:05→19:02)
[2021-06-25] MEDS: Haloperidol Lactate 5 MG/ML VIAL IM SCH ×6 (02:15→21:03)
[2021-06-25] MEDS: Insulin Regular 300 UNITS/3 ML VIAL SC PRN ×4 (04:19→22:01)
[2021-06-25] MEDS: Dexmedetomidine 1,000 MCG in Sodium Chloride 0.9% 250 ML 240 ML IVPB SCH ×3 (04:27→21:02)
[2021-06-25 04:56] LABS: Anisocytosis MODERATE=16-30 cells (100X) (0-5/hpf); Band 14 % (5-11); Eosinophils 10 % (0-10); Hemoglobin 7.1 g/dL (12.0-16.0); Lymphocytes 30 % (21-51); MDiff Complete? YES; Mean Corpuscular HGB CONC 33.1 g/dL (32.0-36.0); Mean Corpuscular Hemoglobin 28.7 pg (27.0-31.0); Mean Corpuscular Volume 86.7 fL (78.0-98.0); Mean Platelet Volume 7.6 fL (7.4-10.4); Monocytes 3 % (0-10); Myelocyte 1 % (0-0); Neutrophil 41 % (42-75); Platelet Count 291 thou/uL (130-400); Platelet Morphology Comment Appears Adequate; Polychromasia SLIGHT = 2-3 cells (100X) (0-2/hpf); RBC Distribution Width 17.7 % (11.5-14.5); Red Blood Cell (RBC) Count 2.46 mill/uL (4.20-5.40)
[2021-06-25 04:58] LABS: Anion Gap 12 mmol/L (10-20); BUN (Urea Nitrogen) 45 mg/dL (7.0-18.7); Calc. Creatinine Clearance 92 mL/min (70-130); Calcium 9.3 mg/dL (7.8-10.44); Carbon Dioxide 20 mmol/L (22-29); Chloride 119 mmol/L (98-107); Glucose 176 mg/dL (70-105); Potassium 4.2 mmol/L (3.5-5.1); Sodium 147 mmol/L (136-145)
[2021-06-25] MEDS: Pantoprazole 40 MG VIAL IVP SCH (09:00)
[2021-06-25] MEDS: ALPRAZolam 1 MG TAB PO SCH ×3 (09:00→21:03)
[2021-06-25] MEDS: Sodium Chloride 0.9% 1,000 ML IV SCH (09:00)
[2021-06-25] MEDS: Fluconazole In NaCl,Iso-Osm 200 MG in Premix Bag 1 BAG IVPB SCH (09:00)
[2021-06-25] MEDS: Meropenem 1 GM in Sodium Chloride 0.9% 100 ML IVPB SCH ×2 (11:15→21:03)
[2021-06-25] MEDS: Dextrose 5% in Water 1,000 ML IV SCH (11:15)
[2021-06-25] MEDS ORDERED: PROPOFOL 20 ML ONE (13:03)
[2021-06-25] MEDS ORDERED: Acetylcysteine 20% 200 MG/ML 30 ML VIAL ONE (13:10)
[2021-06-25] MEDS ORDERED: PROPOFOL 200 MG/20 ML VIAL IVP SCH (13:45)
[2021-06-25] MEDS ORDERED: Acetylcysteine 20% 200 MG/ML 30 ML VIAL INH SCH (13:45)
[2021-06-25 14:43] LABS: Vancomycin, Random 14.7 ug/mL (See Comment)
[2021-06-25] MEDS: Linezolid 600 MG in Premix Bag 1 BAG IVPB SCH (16:06)
[2021-06-26] MEDS: Meropenem 1 GM in Sodium Chloride 0.9% 100 ML IVPB SCH ×3 (03:10→20:48)
[2021-06-26] MEDS: Linezolid 600 MG in Premix Bag 1 BAG IVPB SCH ×2 (03:10→14:41)
[2021-06-26] MEDS: Haloperidol Lactate 5 MG/ML VIAL IM SCH ×6 (03:10→22:53)
[2021-06-26] MEDS: Insulin Regular 300 UNITS/3 ML VIAL SC PRN (04:19)
[2021-06-26 04:27] LABS: Band 8 % (5-11); Eosinophils 3 % (0-10); Hemoglobin 7.4 g/dL (12.0-16.0); Hypochromia SLIGHT = 6-15 cells (100X) (0-5/hpf); Lymphocytes 26 % (21-51); MDiff Complete? YES; Mean Corpuscular Hemoglobin 29.3 pg (27.0-31.0); Mean Corpuscular Volume 86.3 fL (78.0-98.0); Mean Platelet Volume 7.4 fL (7.4-10.4); Monocytes 9 % (0-10); Neutrophil 53 % (42-75); Platelet Count 338 thou/uL (130-400); Platelet Morphology Comment Appears Adequate; RBC Distribution Width 17.9 % (11.5-14.5); Reactive Lymphocytes 1 % (0-10); Red Blood Cell (RBC) Count 2.53 mill/uL (4.20-5.40); White Blood Cell (WBC) Count 8.3 thou/uL (4.8-10.8)
[2021-06-26 04:33] LABS: Anion Gap 14 mmol/L (10-20); BUN (Urea Nitrogen) 43 mg/dL (7.0-18.7); Calc. Creatinine Clearance 107 mL/min (70-130); Calcium 9.1 mg/dL (7.8-10.44); Carbon Dioxide 21 mmol/L (22-29); Chloride 117 mmol/L (98-107); Glucose 182 mg/dL (70-105); Potassium 3.9 mmol/L (3.5-5.1); Sodium 148 mmol/L (136-145)
[2021-06-26] MEDS: Dexmedetomidine 1,000 MCG in Sodium Chloride 0.9% 250 ML 240 ML IVPB SCH ×3 (05:09→18:42)
[2021-06-26] MEDS: Pantoprazole 40 MG VIAL IVP SCH (07:49)
[2021-06-26] MEDS: Fluconazole In NaCl,Iso-Osm 200 MG in Premix Bag 1 BAG IVPB SCH (07:49)
[2021-06-26] MEDS: ALPRAZolam 1 MG TAB PO SCH ×3 (07:49→20:48)
[2021-06-26] MEDS: Dextrose 5% in Water 1,000 ML IV SCH ×3 (07:49→22:56)
[2021-06-26 08:12] LABS: Actual Bicarbonate (HCO3a) 21.4 mEq/L (22-28); Base Excess (BEa) -3.2 mEq/L (-2.0 to +3.0); CO2 Tension 36.3 mmHg (35.0-45.0); Calcium, Ionized (arterial) 1.21 mmol/L (1.12-1.30); Carboxyhemoglobin (COHb) 0.3 gm% (0.0-3.0); Hemoglobin (Hb) 8.4 g/dL (12.0-16.0); O2 Tension (PaO2), arterial 102.5 mmHg (80.0-100.0); Potassium - ABG Lab 3.93 mmol/L (3.70-5.30); pH, Arterial 7.39 (7.35-7.45)
[2021-06-26 08:17] LABS: ALV-art Gradient 101.675 mmHg (0-20); Puncture Site RRA
[2021-06-26] MEDS: fentaNYL Citrate/PF 2,000 MCG in Sodium Chloride 0.9% 60 ML IV SCH (11:49)
[2021-06-26] MEDS: hydrALAZINE 20 MG/ML VIAL SLOW IVP PRN (14:40)
[2021-06-26] MEDS: Scopolamine 1.5 mg/72 hour Patch TOP SCH (14:41)
[2021-06-27] MEDS: Haloperidol Lactate 5 MG/ML VIAL IM SCH ×5 (01:45→16:48)
[2021-06-27] MEDS: Linezolid 600 MG in Premix Bag 1 BAG IVPB SCH ×2 (02:06→13:33)
[2021-06-27] MEDS: Meropenem 1 GM in Sodium Chloride 0.9% 100 ML IVPB SCH ×3 (03:04→20:33)
[2021-06-27] MEDS: Dexmedetomidine 1,000 MCG in Sodium Chloride 0.9% 250 ML 240 ML IVPB SCH ×3 (03:57→18:17)
[2021-06-27] MEDS: Insulin Regular 300 UNITS/3 ML VIAL SC PRN ×3 (03:58→23:04)
[2021-06-27 05:11] LABS: Hemoglobin 7.8 g/dL (12.0-16.0); Mean Corpuscular HGB CONC 33.4 g/dL (32.0-36.0); Mean Corpuscular Hemoglobin 28.8 pg (27.0-31.0); Mean Corpuscular Volume 86.2 fL (78.0-98.0); Mean Platelet Volume 7.5 fL (7.4-10.4); Platelet Count 365 thou/uL (130-400); RBC Distribution Width 18.3 % (11.5-14.5)
[2021-06-27 05:15] LABS: Anion Gap 13 mmol/L (10-20); BUN (Urea Nitrogen) 39 mg/dL (7.0-18.7); Calc. Creatinine Clearance 122 mL/min (70-130); Calcium 8.9 mg/dL (7.8-10.44); Carbon Dioxide 23 mmol/L (22-29); Chloride 109 mmol/L (98-107); Glucose 260 mg/dL (70-105); Potassium 3.8 mmol/L (3.5-5.1); Sodium 141 mmol/L (136-145)
[2021-06-27 05:17] LABS: Band 7 % (5-11); Eosinophils 7 % (0-10); Lymphocytes 32 % (21-51); MDiff Complete? YES; Monocytes 3 % (0-10); Neutrophil 51 % (42-75)
[2021-06-27 08:03] LABS: Actual Bicarbonate (HCO3a) 18.8 mEq/L (22-28); Base Excess (BEa) -3.6 mEq/L (-2.0 to +3.0); Calcium, Ionized (arterial) 1.08 mmol/L (1.12-1.30); Carboxyhemoglobin (COHb) 0.2 gm% (0.0-3.0); Hemoglobin (Hb) 8.6 g/dL (12.0-16.0); O2 Tension (PaO2), arterial 90.8 mmHg (80.0-100.0); Potassium - ABG Lab 4.17 mmol/L (3.70-5.30)
[2021-06-27 08:10] LABS: CO2 Tension 24.9 mmHg (35.0-45.0)
[2021-06-27 08:13] LABS: ALV-art Gradient 127.625 mmHg (0-20)
[2021-06-27 08:14] LABS: Puncture Site LRA
[2021-06-27] MEDS: ALPRAZolam 1 MG TAB PO SCH ×4 (09:03→22:30)
[2021-06-27] MEDS: Pantoprazole 40 MG VIAL IVP SCH (09:03)
[2021-06-27] MEDS: Fluconazole In NaCl,Iso-Osm 200 MG in Premix Bag 1 BAG IVPB SCH (09:14)
[2021-06-27] MEDS: Dextrose 5% in Water 1,000 ML IV SCH ×2 (11:40→13:33)
[2021-06-27] MEDS: fentaNYL Citrate/PF 2,000 MCG in Sodium Chloride 0.9% 60 ML IV SCH (13:32)
[2021-06-27 15:26] LABS: SARS-CoV-2 PCR by NAA Not Detected (NotDetected)
[2021-06-27] MEDS: Lorazepam 2 MG/ML VIAL SLOW IVP PRN ×2 (15:38→16:48)
[2021-06-27] MEDS: hydrALAZINE 20 MG/ML VIAL SLOW IVP PRN (17:08)
[2021-06-27 18:00] LABS: Actual Bicarbonate (HCO3a) 23.5 mEq/L (22-28); Base Excess (BEa) -2.1 mEq/L (-2.0 to +3.0); CO2 Tension 44.1 mmHg (35.0-45.0); Calcium, Ionized (arterial) 1.17 mmol/L (1.12-1.30); Carboxyhemoglobin (COHb) 0.3 gm% (0.0-3.0); Hemoglobin (Hb) 9.9 g/dL (12.0-16.0); Potassium - ABG Lab 4.04 mmol/L (3.70-5.30); pH, Arterial 7.35 (7.35-7.45)
[2021-06-27 18:01] LABS: O2 Tension (PaO2), arterial 58.9 mmHg (80.0-100.0); Puncture Site RRA
[2021-06-27 18:02] LABS: ALV-art Gradient 135.525 mmHg (0-20)
[2021-06-27] MEDS ORDERED: Diltiazem HCl 125 MG, Admixture Fee 1 EACH in Sodium Chloride 0.9% 100 ML IVPB SCH (18:15)
[2021-06-27] MEDS ORDERED: Norepinephrine 8 MG/0.9% NS 0 ML ONE (19:31)
[2021-06-27] MEDS ORDERED: Sodium Chloride 0.9% 500 ML IVPB SCH (19:45)
[2021-06-28] MEDS: Haloperidol Lactate 5 MG/ML VIAL IM SCH ×7 (00:29→22:16)
[2021-06-28] MEDS: Linezolid 600 MG in Premix Bag 1 BAG IVPB SCH ×2 (03:07→13:30)
[2021-06-28] MEDS: Meropenem 1 GM in Sodium Chloride 0.9% 100 ML IVPB SCH ×3 (03:08→20:51)
[2021-06-28] MEDS: Insulin Regular 300 UNITS/3 ML VIAL SC PRN ×2 (03:57→22:19)
[2021-06-28 04:29] LABS: Anion Gap 12 mmol/L (10-20); BUN (Urea Nitrogen) 35 mg/dL (7.0-18.7); Calc. Creatinine Clearance 119 mL/min (70-130); Calcium 8.5 mg/dL (7.8-10.44); Carbon Dioxide 24 mmol/L (22-29); Chloride 109 mmol/L (98-107); Glucose 165 mg/dL (70-105); Potassium 3.9 mmol/L (3.5-5.1); Sodium 141 mmol/L (136-145)
[2021-06-28 05:07] LABS: Band 19 % (5-11); Hemoglobin 7.6 g/dL (12.0-16.0); Lymphocytes 26 % (21-51); MDiff Complete? YES; Mean Corpuscular HGB CONC 32.4 g/dL (32.0-36.0); Mean Corpuscular Hemoglobin 28.2 pg (27.0-31.0); Mean Platelet Volume 7.7 fL (7.4-10.4); Monocytes 7 % (0-10); Neutrophil 48 % (42-75); Platelet Count 381 thou/uL (130-400); RBC Distribution Width 18.6 % (11.5-14.5); White Blood Cell (WBC) Count 17.9 thou/uL (4.8-10.8)
[2021-06-28] MEDS: Dexmedetomidine 1,000 MCG in Sodium Chloride 0.9% 250 ML 240 ML IVPB SCH ×2 (05:29→18:51)
[2021-06-28] MEDS: fentaNYL Citrate/PF 2,000 MCG in Sodium Chloride 0.9% 60 ML IV SCH (06:11)
[2021-06-28] MEDS: Acetaminophen 650 MG/20.3 ML UDCUP PO PRN ×2 (08:14→16:41)
[2021-06-28] MEDS: Lorazepam 2 MG/ML VIAL SLOW IVP PRN ×2 (08:15→16:41)
[2021-06-28] MEDS: Pantoprazole 40 MG VIAL IVP SCH (08:15)
[2021-06-28 08:26] LABS: Base Excess (BEa) -1.4 mEq/L (-2.0 to +3.0); CO2 Tension 36.8 mmHg (35.0-45.0); Calcium, Ionized (arterial) 1.13 mmol/L (1.12-1.30); Carboxyhemoglobin (COHb) 0.5 gm% (0.0-3.0); O2 Tension (PaO2), arterial 107.7 mmHg (80.0-100.0); Potassium - ABG Lab 3.81 mmol/L (3.70-5.30); pH, Arterial 7.41 (7.35-7.45)
[2021-06-28 08:27] LABS: Puncture Site RRA
[2021-06-28] MEDS: ALPRAZolam 1 MG TAB PO SCH ×2 (13:32→20:51)
[2021-06-28] MEDS: Micafungin 100 MG in Sodium Chloride 0.9% 100 ML IVPB SCH (20:51)
[2021-06-29] MEDS: Linezolid 600 MG in Premix Bag 1 BAG IVPB SCH ×2 (02:13→14:51)
[2021-06-29] MEDS: Haloperidol Lactate 5 MG/ML VIAL IM SCH ×6 (02:13→21:33)
[2021-06-29] MEDS: Dexmedetomidine 1,000 MCG in Sodium Chloride 0.9% 250 ML 240 ML IVPB SCH ×2 (03:30→12:28)
[2021-06-29] MEDS: Meropenem 1 GM in Sodium Chloride 0.9% 100 ML IVPB SCH ×3 (03:35→20:28)
[2021-06-29] MEDS: Insulin Regular 300 UNITS/3 ML VIAL SC PRN ×3 (03:39→21:38)
[2021-06-29 04:38] LABS: Anion Gap 12 mmol/L (10-20); BUN (Urea Nitrogen) 27 mg/dL (7.0-18.7); Calc. Creatinine Clearance 153 mL/min (70-130); Calcium 8.8 mg/dL (7.8-10.44); Carbon Dioxide 24 mmol/L (22-29); Chloride 110 mmol/L (98-107); Glucose 218 mg/dL (70-105); Potassium 3.7 mmol/L (3.5-5.1); Sodium 142 mmol/L (136-145)
[2021-06-29 04:47] LABS: Hemoglobin 7.8 g/dL (12.0-16.0); Mean Corpuscular HGB CONC 31.9 g/dL (32.0-36.0); Mean Corpuscular Volume 87.7 fL (78.0-98.0); Mean Platelet Volume 7.7 fL (7.4-10.4); Platelet Count 354 thou/uL (130-400); RBC Distribution Width 18.3 % (11.5-14.5); White Blood Cell (WBC) Count 12.1 thou/uL (4.8-10.8)
[2021-06-29 04:49] LABS: Band 7 % (5-11); Eosinophils 14 % (0-10); Lymphocytes 16 % (21-51); MDiff Complete? YES; Monocytes 3 % (0-10); Neutrophil 60 % (42-75); Polychromasia SLIGHT = 2-3 cells (100X) (0-2/hpf)
[2021-06-29] MEDS: fentaNYL Citrate/PF 2,000 MCG in Sodium Chloride 0.9% 60 ML IV SCH (06:25)
[2021-06-29] MEDS: Lorazepam 2 MG/ML VIAL SLOW IVP PRN ×2 (08:15→09:47)
[2021-06-29] MEDS: Pantoprazole 40 MG VIAL IVP SCH (08:15)
[2021-06-29] MEDS: ALPRAZolam 1 MG TAB PO SCH ×3 (09:30→21:33)
[2021-06-29] MEDS: Acetaminophen 650 MG/20.3 ML UDCUP PO PRN ×2 (09:47→17:32)
[2021-06-29] MEDS ORDERED: Albumin 5% 250 ML ONE (11:02)
[2021-06-29] MEDS ORDERED: Sodium Chloride 0.9% 1,000 ML IV SCH (12:45)
[2021-06-29] MEDS: Scopolamine 1.5 mg/72 hour Patch TOP SCH (14:51)
[2021-06-29] MEDS: Micafungin 100 MG in Sodium Chloride 0.9% 100 ML IVPB SCH (20:27)
[2021-06-30] MEDS: Lorazepam 2 MG/ML VIAL SLOW IVP PRN ×2 (00:59→07:19)
[2021-06-30] MEDS: Haloperidol Lactate 5 MG/ML VIAL IM SCH ×6 (02:31→22:01)
[2021-06-30] MEDS: Linezolid 600 MG in Premix Bag 1 BAG IVPB SCH ×2 (02:31→14:57)
[2021-06-30] MEDS: fentaNYL Citrate/PF 2,000 MCG in Sodium Chloride 0.9% 60 ML IV SCH (04:02)
[2021-06-30 04:48] LABS: Anion Gap 12 mmol/L (10-20); BUN (Urea Nitrogen) 25 mg/dL (7.0-18.7); Calc. Creatinine Clearance 186 mL/min (70-130); Calcium 9.1 mg/dL (7.8-10.44); Carbon Dioxide 25 mmol/L (22-29); Chloride 113 mmol/L (98-107); Glucose 184 mg/dL (70-105); Potassium 3.9 mmol/L (3.5-5.1); Sodium 146 mmol/L (136-145)
[2021-06-30] MEDS: Meropenem 1 GM in Sodium Chloride 0.9% 100 ML IVPB SCH ×3 (04:57→20:46)
[2021-06-30 06:25] LABS: Hemoglobin 7.6 g/dL (12.0-16.0); Mean Corpuscular HGB CONC 32.3 g/dL (32.0-36.0); Mean Corpuscular Hemoglobin 28.6 pg (27.0-31.0); Mean Corpuscular Volume 88.4 fL (78.0-98.0); Mean Platelet Volume 7.8 fL (7.4-10.4); Platelet Count 341 thou/uL (130-400); Red Blood Cell (RBC) Count 2.65 mill/uL (4.20-5.40); White Blood Cell (WBC) Count 8.8 thou/uL (4.8-10.8)
[2021-06-30] MEDS: Dexmedetomidine 1,000 MCG in Sodium Chloride 0.9% 250 ML 240 ML IVPB SCH ×2 (06:29→15:58)
[2021-06-30] MEDS: Insulin Regular 300 UNITS/3 ML VIAL SC PRN (06:31)
[2021-06-30 07:08] LABS: Band 13 % (5-11); Eosinophils 15 % (0-10); Lymphocytes 20 % (21-51); MDiff Complete? YES; Monocytes 4 % (0-10); Neutrophil 48 % (42-75)
[2021-06-30] MEDS: Acetaminophen 650 MG/20.3 ML UDCUP PO PRN ×3 (07:18→17:26)
[2021-06-30] MEDS: Pantoprazole 40 MG VIAL IVP SCH (10:04)
[2021-06-30] MEDS: fentaNYL 50 mcg/hour Patch TD SCH (10:04)
[2021-06-30] MEDS: ALPRAZolam 1 MG TAB PO SCH ×4 (10:04→21:59)
[2021-06-30] MEDS: Dextrose 5% in Water 1,000 ML IV SCH (15:05)
[2021-06-30] MEDS: EPOETIN ALFA-EPBX (ESRD) 10,000 UNIT/ML VIAL SC SCH (16:54)
[2021-06-30] MEDS: Micafungin 100 MG in Sodium Chloride 0.9% 100 ML IVPB SCH (20:06)
[2021-07-01] MEDS: Dextrose 5% in Water 1,000 ML IV SCH ×3 (00:07→20:42)
[2021-07-01] MEDS: Dexmedetomidine 1,000 MCG in Sodium Chloride 0.9% 250 ML 240 ML IVPB SCH ×4 (01:47→17:13)
[2021-07-01] MEDS: Haloperidol Lactate 5 MG/ML VIAL IM SCH ×4 (02:57→14:17)
[2021-07-01] MEDS: Meropenem 1 GM in Sodium Chloride 0.9% 100 ML IVPB SCH ×3 (04:34→20:41)
[2021-07-01] MEDS: Linezolid 600 MG in Premix Bag 1 BAG IVPB SCH ×2 (04:35→17:18)
[2021-07-01 04:39] LABS: Anion Gap 10 mmol/L (10-20); BUN (Urea Nitrogen) 24 mg/dL (7.0-18.7); Calc. Creatinine Clearance 188 mL/min (70-130); Carbon Dioxide 25 mmol/L (22-29); Chloride 111 mmol/L (98-107); Glucose 161 mg/dL (70-105); Potassium 3.8 mmol/L (3.5-5.1); Sodium 142 mmol/L (136-145)
[2021-07-01 04:43] LABS: Band 4 % (5-11); Eosinophils 2 % (0-10); Hemoglobin 7.7 g/dL (12.0-16.0); Hypochromia SLIGHT = 6-15 cells (100X) (0-5/hpf); Lymphocytes 16 % (21-51); MDiff Complete? YES; Mean Corpuscular HGB CONC 32.7 g/dL (32.0-36.0); Mean Corpuscular Hemoglobin 28.8 pg (27.0-31.0); Mean Corpuscular Volume 88.1 fL (78.0-98.0); Mean Platelet Volume 7.3 fL (7.4-10.4); Monocytes 13 % (0-10); Neutrophil 65 % (42-75); Platelet Count 340 thou/uL (130-400); Platelet Morphology Comment Appears Adequate; RBC Distribution Width 17.7 % (11.5-14.5); Red Blood Cell (RBC) Count 2.67 mill/uL (4.20-5.40); White Blood Cell (WBC) Count 9.1 thou/uL (4.8-10.8)
[2021-07-01] MEDS: ALPRAZolam 1 MG TAB PO SCH ×3 (09:12→20:41)
[2021-07-01] MEDS: Pantoprazole 40 MG VIAL IVP SCH (09:12)
[2021-07-01] MEDS: Insulin Regular 300 UNITS/3 ML VIAL SC PRN (17:17)
[2021-07-01] MEDS: Micafungin 100 MG in Sodium Chloride 0.9% 100 ML IVPB SCH (20:43)
[2021-07-01] MEDS: Lorazepam 2 MG/ML VIAL SLOW IVP PRN (23:03)
[2021-07-02] MEDS: Dexmedetomidine 1,000 MCG in Sodium Chloride 0.9% 250 ML 240 ML IVPB SCH ×2 (03:55→17:40)
[2021-07-02] MEDS: Linezolid 600 MG in Premix Bag 1 BAG IVPB SCH ×2 (03:55→14:17)
[2021-07-02] MEDS: Meropenem 1 GM in Sodium Chloride 0.9% 100 ML IVPB SCH ×3 (03:56→19:20)
[2021-07-02 04:54] LABS: Anion Gap 11 mmol/L (10-20); BUN (Urea Nitrogen) 20 mg/dL (7.0-18.7); Calc. Creatinine Clearance 204 mL/min (70-130); Calcium 8.7 mg/dL (7.8-10.44); Carbon Dioxide 26 mmol/L (22-29); Chloride 103 mmol/L (98-107); Glucose 140 mg/dL (70-105); Potassium 3.6 mmol/L (3.5-5.1); Sodium 136 mmol/L (136-145)
[2021-07-02 04:55] LABS: Band 1 % (5-11); Eosinophils 6 % (0-10); Hemoglobin 7.9 g/dL (12.0-16.0); Hypochromia SLIGHT = 6-15 cells (100X) (0-5/hpf); Lymphocytes 28 % (21-51); MDiff Complete? YES; Mean Corpuscular HGB CONC 32.7 g/dL (32.0-36.0); Mean Corpuscular Hemoglobin 28.1 pg (27.0-31.0); Mean Corpuscular Volume 85.8 fL (78.0-98.0); Mean Platelet Volume 7.4 fL (7.4-10.4); Monocytes 7 % (0-10); Neutrophil 58 % (42-75); Nucleated RBC 1 % (0); Platelet Count 346 thou/uL (130-400); Platelet Morphology Comment Appears Adequate; RBC Distribution Width 17.6 % (11.5-14.5); Red Blood Cell (RBC) Count 2.83 mill/uL (4.20-5.40); White Blood Cell (WBC) Count 8.7 thou/uL (4.8-10.8)
[2021-07-02] MEDS: Dextrose 5% in Water 1,000 ML IV SCH (06:08)
[2021-07-02] MEDS ORDERED: Pantoprazole 40 MG GRANULES PACKET PER TUBE SCH (09:00)
[2021-07-02] MEDS: ALPRAZolam 1 MG TAB PO SCH ×3 (09:11→21:33)
[2021-07-02] MEDS: Enoxaparin Sodium 30 MG/0.3 ML SYRINGE SC SCH (09:11)
[2021-07-02] MEDS: Morphine 10 MG/ML VIAL SLOW IVP PRN (13:06)
[2021-07-02] MEDS ORDERED: Propofol 1,000 MG/100 ML VIAL IV ONE (14:12)
[2021-07-02] MEDS: Acetaminophen 650 MG/20.3 ML UDCUP PO PRN ×2 (14:15→21:33)
[2021-07-02] MEDS: Propofol 1,000 MG/100 ML VIAL IV PRN (14:15)
[2021-07-02] MEDS: Scopolamine 1.5 mg/72 hour Patch TOP SCH (14:16)
[2021-07-02] MEDS ORDERED: Propofol BOLUS 1,000 MG/100 ML VIAL IV PRN (15:30)
[2021-07-02] MEDS: Insulin Regular 300 UNITS/3 ML VIAL SC PRN (16:40)
[2021-07-02] MEDS ORDERED: Sodium Chloride 0.9% 250 ML 250 ML IVPB SCH (18:15)
[2021-07-02] MEDS: Lorazepam 2 MG/ML VIAL SLOW IVP PRN (19:16)
[2021-07-02] MEDS: Micafungin 100 MG in Sodium Chloride 0.9% 100 ML IVPB SCH (21:34)
[2021-07-03] MEDS: Linezolid 600 MG in Premix Bag 1 BAG IVPB SCH ×2 (03:05→15:48)
[2021-07-03] MEDS: Lorazepam 2 MG/ML VIAL SLOW IVP PRN ×2 (03:05→10:44)
[2021-07-03] MEDS: Meropenem 1 GM in Sodium Chloride 0.9% 100 ML IVPB SCH ×3 (04:46→20:17)
[2021-07-03] MEDS: Dexmedetomidine 1,000 MCG in Sodium Chloride 0.9% 250 ML 240 ML IVPB SCH ×3 (04:47→22:50)
[2021-07-03 05:35] LABS: Band 4 % (5-11); Eosinophils 14 % (0-10); Hemoglobin 8.3 g/dL (12.0-16.0); Lymphocytes 17 % (21-51); MDiff Complete? YES; Mean Corpuscular HGB CONC 31.6 g/dL (32.0-36.0); Mean Corpuscular Hemoglobin 27.1 pg (27.0-31.0); Mean Corpuscular Volume 85.8 fL (78.0-98.0); Mean Platelet Volume 7.4 fL (7.4-10.4); Monocytes 4 % (0-10); Neutrophil 61 % (42-75); Platelet Count 336 thou/uL (130-400); Platelet Morphology Comment Appears Adequate; RBC Distribution Width 17.4 % (11.5-14.5); Red Blood Cell (RBC) Count 3.05 mill/uL (4.20-5.40); White Blood Cell (WBC) Count 8.9 thou/uL (4.8-10.8)
[2021-07-03 09:03] LABS: Anion Gap 12 mmol/L (10-20); BUN (Urea Nitrogen) 17 mg/dL (7.0-18.7); Calc. Creatinine Clearance 194 mL/min (70-130); Calcium 9.2 mg/dL (7.8-10.44); Carbon Dioxide 26 mmol/L (22-29); Chloride 104 mmol/L (98-107); Glucose 173 mg/dL (70-105); Potassium 4.1 mmol/L (3.5-5.1); Sodium 138 mmol/L (136-145)
[2021-07-03] MEDS: ALPRAZolam 1 MG TAB PO SCH ×3 (09:25→20:18)
[2021-07-03] MEDS: Pantoprazole 40 MG VIAL IVP SCH (09:25)
[2021-07-03] MEDS: fentaNYL 50 mcg/hour Patch TD SCH (09:25)
[2021-07-03] MEDS: Enoxaparin Sodium 30 MG/0.3 ML SYRINGE SC SCH (09:25)
[2021-07-03] MEDS: Propofol 1,000 MG/100 ML VIAL IV PRN (09:28)
[2021-07-03] MEDS: Morphine 10 MG/ML VIAL SLOW IVP PRN (11:49)
[2021-07-03 14:02] VITALS: BMI 48.7
[2021-07-03] MEDS: Insulin Regular 300 UNITS/3 ML VIAL SC PRN ×2 (15:54→23:01)
[2021-07-03] MEDS: Micafungin 100 MG in Sodium Chloride 0.9% 100 ML IVPB SCH (20:16)
[2021-07-04] MEDS: Linezolid 600 MG in Premix Bag 1 BAG IVPB SCH ×2 (03:18→14:51)
[2021-07-04] MEDS: Meropenem 1 GM in Sodium Chloride 0.9% 100 ML IVPB SCH ×3 (03:19→19:51)
[2021-07-04 04:33] LABS: Anion Gap 12 mmol/L (10-20); BUN (Urea Nitrogen) 18 mg/dL (7.0-18.7); Calc. Creatinine Clearance 201 mL/min (70-130); Carbon Dioxide 26 mmol/L (22-29); Chloride 105 mmol/L (98-107); Glucose 162 mg/dL (70-105); Potassium 3.7 mmol/L (3.5-5.1); Sodium 139 mmol/L (136-145)
[2021-07-04 05:52] LABS: Anisocytosis MODERATE=16-30 cells (100X) (0-5/hpf); Band 3 % (5-11); Eosinophils 11 % (0-10); Hemoglobin 8.5 g/dL (12.0-16.0); Lymphocytes 34 % (21-51); MDiff Complete? YES; Mean Corpuscular HGB CONC 33.5 g/dL (32.0-36.0); Mean Corpuscular Volume 86.6 fL (78.0-98.0); Mean Platelet Volume 7.6 fL (7.4-10.4); Monocytes 1 % (0-10); Neutrophil 51 % (42-75); Nucleated RBC 1 % (0); Platelet Count 312 thou/uL (130-400); Polychromasia SLIGHT = 2-3 cells (100X) (0-2/hpf); RBC Distribution Width 17.4 % (11.5-14.5); Red Blood Cell (RBC) Count 2.93 mill/uL (4.20-5.40); Stomatocytes MODERATE= 6-15 cells (100X) (0-1/hpf); White Blood Cell (WBC) Count 8.2 thou/uL (4.8-10.8)
[2021-07-04] MEDS: ALPRAZolam 1 MG TAB PO SCH ×3 (08:52→20:16)
[2021-07-04] MEDS: Enoxaparin Sodium 30 MG/0.3 ML SYRINGE SC SCH (08:53)
[2021-07-04] MEDS: Pantoprazole 40 MG VIAL IVP SCH (08:54)
[2021-07-04] MEDS: Dexmedetomidine 1,000 MCG in Sodium Chloride 0.9% 250 ML 240 ML IVPB SCH ×2 (09:47→18:27)
[2021-07-04] MEDS: Morphine 10 MG/ML VIAL SLOW IVP PRN (11:39)
[2021-07-04] MEDS: Insulin Regular 300 UNITS/3 ML VIAL SC PRN ×2 (17:11→21:36)
[2021-07-04] MEDS: Micafungin 100 MG in Sodium Chloride 0.9% 100 ML IVPB SCH (20:28)
[2021-07-05 00:28] LABS: SARS-CoV-2 PCR by NAA Not Detected (NotDetected)
[2021-07-05] MEDS: Linezolid 600 MG in Premix Bag 1 BAG IVPB SCH ×2 (04:07→14:36)
[2021-07-05] MEDS: Meropenem 1 GM in Sodium Chloride 0.9% 100 ML IVPB SCH ×3 (04:07→20:02)
[2021-07-05 04:34] LABS: Band 4 % (5-11); Eosinophils 4 % (0-10); Hemoglobin 8.6 g/dL (12.0-16.0); Hypochromia SLIGHT = 6-15 cells (100X) (0-5/hpf); Lymphocytes 14 % (21-51); MDiff Complete? YES; Mean Corpuscular HGB CONC 32.9 g/dL (32.0-36.0); Mean Corpuscular Hemoglobin 28.5 pg (27.0-31.0); Mean Corpuscular Volume 86.7 fL (78.0-98.0); Mean Platelet Volume 7.7 fL (7.4-10.4); Monocytes 14 % (0-10); Neutrophil 64 % (42-75); Platelet Count 325 thou/uL (130-400); Platelet Morphology Comment Appears Adequate; RBC Distribution Width 17.4 % (11.5-14.5); Red Blood Cell (RBC) Count 3.03 mill/uL (4.20-5.40); White Blood Cell (WBC) Count 8.1 thou/uL (4.8-10.8)
[2021-07-05 04:40] LABS: Anion Gap 11 mmol/L (10-20); BUN (Urea Nitrogen) 19 mg/dL (7.0-18.7); Calc. Creatinine Clearance 207 mL/min (70-130); Carbon Dioxide 28 mmol/L (22-29); Chloride 105 mmol/L (98-107); Glucose 170 mg/dL (70-105); Sodium 140 mmol/L (136-145)
[2021-07-05] MEDS: Insulin Regular 300 UNITS/3 ML VIAL SC PRN ×2 (04:56→17:56)
[2021-07-05] MEDS: Dexmedetomidine 1,000 MCG in Sodium Chloride 0.9% 250 ML 240 ML IVPB SCH ×2 (04:56→16:39)
[2021-07-05] MEDS: ALPRAZolam 1 MG TAB PO SCH ×3 (08:52→20:04)
[2021-07-05] MEDS: Enoxaparin Sodium 30 MG/0.3 ML SYRINGE SC SCH (08:52)
[2021-07-05] MEDS: Pantoprazole 40 MG VIAL IVP SCH (14:31)
[2021-07-05] MEDS: Scopolamine 1.5 mg/72 hour Patch TOP SCH (14:34)
[2021-07-05 14:57] VITALS: BP 110/71
[2021-07-05] MEDS: Micafungin 100 MG in Sodium Chloride 0.9% 100 ML IVPB SCH (20:04)
[2021-07-06] MEDS: Dexmedetomidine 1,000 MCG in Sodium Chloride 0.9% 250 ML 240 ML IVPB SCH ×2 (02:02→13:39)
[2021-07-06] MEDS: Meropenem 1 GM in Sodium Chloride 0.9% 100 ML IVPB SCH (04:50)
[2021-07-06] MEDS: Insulin Regular 300 UNITS/3 ML VIAL SC PRN ×3 (05:20→23:01)
[2021-07-06 05:54] LABS: Anisocytosis SLIGHT = 6-15 cells (100X) (0-5/hpf); Band 3 % (5-11); Eosinophils 18 % (0-10); Hemoglobin 8.8 g/dL (12.0-16.0); Lymphocytes 33 % (21-51); MDiff Complete? YES; Mean Corpuscular HGB CONC 32.5 g/dL (32.0-36.0); Mean Corpuscular Hemoglobin 28.1 pg (27.0-31.0); Mean Corpuscular Volume 86.7 fL (78.0-98.0); Mean Platelet Volume 7.6 fL (7.4-10.4); Monocytes 3 % (0-10); Neutrophil 41 % (42-75); Platelet Count 311 thou/uL (130-400); Platelet Morphology Comment Appears Adequate; Polychromasia SLIGHT = 2-3 cells (100X) (0-2/hpf); Reactive Lymphocytes 2 % (0-10); Red Blood Cell (RBC) Count 3.13 mill/uL (4.20-5.40); Spherocytes SLIGHT = 1-5 cells (100X) (None Seen); Stomatocytes MODERATE= 6-15 cells (100X) (0-1/hpf); White Blood Cell (WBC) Count 9.9 thou/uL (4.8-10.8)
[2021-07-06 05:58] LABS: Anion Gap 12 mmol/L (10-20); BUN (Urea Nitrogen) 21 mg/dL (7.0-18.7); Calc. Creatinine Clearance 213 mL/min (70-130); Calcium 8.9 mg/dL (7.8-10.44); Carbon Dioxide 28 mmol/L (22-29); Chloride 104 mmol/L (98-107); Glucose 161 mg/dL (70-105); Potassium 4.1 mmol/L (3.5-5.1); Sodium 140 mmol/L (136-145)
[2021-07-06] MEDS: Enoxaparin Sodium 30 MG/0.3 ML SYRINGE SC SCH (09:25)
[2021-07-06] MEDS: ALPRAZolam 1 MG TAB PO SCH ×3 (09:26→20:17)
[2021-07-06] MEDS: Pantoprazole 40 MG VIAL IVP SCH (09:26)
[2021-07-06] MEDS: fentaNYL 50 mcg/hour Patch TD SCH (09:45)
[2021-07-06] MEDS ORDERED: fentaNYL 50 mcg/hour Patch TD SCH (12:00)
[2021-07-06] MEDS: Micafungin 100 MG in Sodium Chloride 0.9% 100 ML IVPB SCH (20:17)
[2021-07-07] MEDS: Dexmedetomidine 1,000 MCG in Sodium Chloride 0.9% 250 ML 240 ML IVPB SCH ×3 (00:26→21:02)
[2021-07-07 04:15] LABS: Band 3 % (5-11); Eosinophils 6 % (0-10); Hemoglobin 8.8 g/dL (12.0-16.0); Hypochromia SLIGHT = 6-15 cells (100X) (0-5/hpf); Lymphocytes 34 % (21-51); MDiff Complete? YES; Mean Corpuscular HGB CONC 32.1 g/dL (32.0-36.0); Mean Corpuscular Hemoglobin 27.9 pg (27.0-31.0); Mean Platelet Volume 7.2 fL (7.4-10.4); Monocytes 8 % (0-10); Neutrophil 49 % (42-75); Platelet Count 282 thou/uL (130-400); Platelet Morphology Comment Appears Adequate; Red Blood Cell (RBC) Count 3.13 mill/uL (4.20-5.40)
[2021-07-07 04:21] LABS: Anion Gap 12 mmol/L (10-20); BUN (Urea Nitrogen) 24 mg/dL (7.0-18.7); Calc. Creatinine Clearance 230 mL/min (70-130); Carbon Dioxide 29 mmol/L (22-29); Chloride 105 mmol/L (98-107); Glucose 143 mg/dL (70-105); Potassium 4.1 mmol/L (3.5-5.1); Sodium 142 mmol/L (136-145)
[2021-07-07] MEDS: ALPRAZolam 1 MG TAB PO SCH ×3 (10:11→21:02)
[2021-07-07] MEDS: Pantoprazole 40 MG VIAL IVP SCH (10:12)
[2021-07-07] MEDS ORDERED: Morphine 4 MG/ML VIAL SLOW IVP PRN (11:45)
[2021-07-07] MEDS: EPOETIN ALFA-EPBX (ESRD) 10,000 UNIT/ML VIAL SC SCH (15:36)
[2021-07-07] MEDS: Micafungin 100 MG in Sodium Chloride 0.9% 100 ML IVPB SCH (21:02)
[2021-07-08 04:21] LABS: Band 6 % (5-11); Eosinophils 15 % (0-10); Hemoglobin 9.4 g/dL (12.0-16.0); Lymphocytes 31 % (21-51); MDiff Complete? YES; Mean Corpuscular HGB CONC 32.5 g/dL (32.0-36.0); Mean Corpuscular Hemoglobin 28.2 pg (27.0-31.0); Mean Corpuscular Volume 86.8 fL (78.0-98.0); Mean Platelet Volume 7.4 fL (7.4-10.4); Monocytes 3 % (0-10); Neutrophil 44 % (42-75); Platelet Count 279 thou/uL (130-400); Platelet Morphology Comment Appears Adequate; RBC Distribution Width 16.7 % (11.5-14.5); RBC Morphology Normal; Red Blood Cell (RBC) Count 3.35 mill/uL (4.20-5.40); White Blood Cell (WBC) Count 8.6 thou/uL (4.8-10.8)
[2021-07-08 04:25] LABS: Anion Gap 14 mmol/L (10-20); BUN (Urea Nitrogen) 25 mg/dL (7.0-18.7); Calc. Creatinine Clearance 216 mL/min (70-130); Calcium 9.2 mg/dL (7.8-10.44); Carbon Dioxide 28 mmol/L (22-29); Chloride 103 mmol/L (98-107); Glucose 165 mg/dL (70-105); Potassium 4.2 mmol/L (3.5-5.1); Sodium 141 mmol/L (136-145)
[2021-07-08] MEDS: Insulin Regular 300 UNITS/3 ML VIAL SC PRN (05:48)
[2021-07-08] MEDS: Enoxaparin Sodium 30 MG/0.3 ML SYRINGE SC SCH (07:29)
[2021-07-08] MEDS: ALPRAZolam 1 MG TAB PO SCH (07:34)
[2021-07-08] MEDS: Pantoprazole 40 MG VIAL IVP SCH (07:35)
[2021-07-08] MEDS ORDERED: Enoxaparin Sodium 40 MG/0.4 ML SYRINGE SC SCH (09:00)
[2021-07-08 09:53] VITALS: TEMP 98
== END 2021-07-08 10:33 | DRG 3 ==
LOC: SURG A 05-19 07:30 → SURG B 05-19 13:50 → CCU 05-20 12:31
PROVIDERS: ADMIT Surgery; ATTEND Surgery
PROC: 0D164ZA Bypass Stomach to Jejunum, Percutaneous Endoscopic Approach (ICD-10-PCS; principal; 2021-05-19)
PROC: 0DJ08ZZ Inspection of Upper Intestinal Tract, Via Natural or Artificial Opening Endoscopic (ICD-10-PCS; 2021-05-19)
PROC: 0W9G4ZZ Drainage of Peritoneal Cavity, Percutaneous Endoscopic Approach (ICD-10-PCS; 2021-05-20)
PROC: 0DJ08ZZ Inspection of Upper Intestinal Tract, Via Natural or Artificial Opening Endoscopic (ICD-10-PCS; 2021-05-20)
PROC: 02HV33Z Insertion of Infusion Device into Superior Vena Cava, Percutaneous Approach (ICD-10-PCS; 2021-05-20)
PROC: 0DHA4UZ Insertion of Feeding Device into Jejunum, Percutaneous Endoscopic Approach (ICD-10-PCS; 2021-05-20)
PROC: 3E043XZ Introduction of Vasopressor into Central Vein, Percutaneous Approach (ICD-10-PCS; 2021-05-20)
PROC: 5A1935Z Respiratory Ventilation, Less than 24 Consecutive Hours (ICD-10-PCS; 2021-05-20)
PROC: 5A0945A Assistance with Respiratory Ventilation, 24-96 Consecutive Hours, High Flow/Velocity Cannula (ICD-10-PCS; 2021-05-21)
PROC: 3E0436Z Introduction of Nutritional Substance into Central Vein, Percutaneous Approach (ICD-10-PCS; 2021-05-22)
PROC: 5A1955Z Respiratory Ventilation, Greater than 96 Consecutive Hours (ICD-10-PCS; 2021-05-24)
PROC: 0BH18EZ Insertion of Endotracheal Airway into Trachea, Via Natural or Artificial Opening Endoscopic (ICD-10-PCS; 2021-05-24)
PROC: 0JB80ZZ Excision of Abdomen Subcutaneous Tissue and Fascia, Open Approach (ICD-10-PCS; 2021-05-25)
PROC: 30233N1 Transfusion of Nonautologous Red Blood Cells into Peripheral Vein, Percutaneous Approach (ICD-10-PCS; 2021-05-25)
PROC: 02H633Z Insertion of Infusion Device into Right Atrium, Percutaneous Approach (ICD-10-PCS; 2021-05-25)
PROC: 5A1D70Z Performance of Urinary Filtration, Intermittent, Less than 6 Hours Per Day (ICD-10-PCS; 2021-05-26)
PROC: 0JH60XZ Insertion of Tunneled Vascular Access Device into Chest Subcutaneous Tissue and Fascia, Open Approach (ICD-10-PCS; 2021-05-28)
PROC: B5181ZA Fluoroscopy of Superior Vena Cava using Low Osmolar Contrast, Guidance (ICD-10-PCS; 2021-05-28)
PROC: B548ZZA Ultrasonography of Superior Vena Cava, Guidance (ICD-10-PCS; 2021-05-28)
PROC: 02H633Z Insertion of Infusion Device into Right Atrium, Percutaneous Approach (ICD-10-PCS; 2021-05-28)
PROC: 0B110F4 Bypass Trachea to Cutaneous with Tracheostomy Device, Open Approach (ICD-10-PCS; 2021-06-11)
PROC: 02HV33Z Insertion of Infusion Device into Superior Vena Cava, Percutaneous Approach (ICD-10-PCS; 2021-06-24)
PROC: B548ZZA Ultrasonography of Superior Vena Cava, Guidance (ICD-10-PCS; 2021-06-24)
PROC: 05PYX3Z Removal of Infusion Device from Upper Vein, External Approach (ICD-10-PCS; 2021-06-24)
PROC: 0BCF8ZZ Extirpation of Matter from Right Lower Lung Lobe, Via Natural or Artificial Opening Endoscopic (ICD-10-PCS; 2021-06-25)
PROC: 0BC18ZZ Extirpation of Matter from Trachea, Via Natural or Artificial Opening Endoscopic (ICD-10-PCS; 2021-06-25)
PROC: 0B21XFZ Change Tracheostomy Device in Trachea, External Approach (ICD-10-PCS; 2021-06-29)
DX: K21.9 Gastro-esophageal reflux disease without esophagitis (principal); A41.81 Sepsis due to Enterococcus; B37.7 Candidal sepsis; J96.01 Acute respiratory failure with hypoxia; K65.8 Other peritonitis; M72.6 Necrotizing fasciitis; K65.1 Peritoneal abscess; G93.41 Metabolic encephalopathy; N18.6 End stage renal disease; J18.9 Pneumonia, unspecified organism; R65.20 Severe sepsis without septic shock; T81.44XA Sepsis following a procedure, initial encounter; T81.43XA Infection following a procedure, organ and space surgical site, initial encounter; Z16.21 Resistance to vancomycin; T85.591A Other mechanical complication of esophageal anti-reflux device, initial encounter; N17.9 Acute kidney failure, unspecified; K95.81 Infection due to other bariatric procedure; E46 Unspecified protein-calorie malnutrition; F05 Delirium due to known physiological condition; J98.11 Atelectasis; J90 Pleural effusion, not elsewhere classified; E87.4 Mixed disorder of acid-base balance; L03.311 Cellulitis of abdominal wall; E87.1 Hypo-osmolality and hyponatremia; J95.03 Malfunction of tracheostomy stoma; E87.0 Hyperosmolality and hypernatremia; Z99.11 Dependence on respirator [ventilator] status; Z68.42 Body mass index [BMI] 45.0-49.9, adult; I12.0 Hypertensive chronic kidney disease with stage 5 chronic kidney disease or end stage renal disease; Z20.822 Contact with and (suspected) exposure to COVID-19; E66.01 Morbid (severe) obesity due to excess calories; F41.9 Anxiety disorder, unspecified; D63.1 Anemia in chronic kidney disease; M19.90 Unspecified osteoarthritis, unspecified site; E11.22 Type 2 diabetes mellitus with diabetic chronic kidney disease; E83.39 Other disorders of phosphorus metabolism; D50.0 Iron deficiency anemia secondary to blood loss (chronic); E87.6 Hypokalemia; E87.8 Other disorders of electrolyte and fluid balance, not elsewhere classified; E87.5 Hyperkalemia; K83.8 Other specified diseases of biliary tract; E87.70 Fluid overload, unspecified; Y83.8 Other surgical procedures as the cause of abnormal reaction of the patient, or of later complication, without mention of misadventure at the time of the procedure; Z78.1 Physical restraint status; Z88.1 Allergy status to other antibiotic agents; Z99.2 Dependence on renal dialysis; Z79.899 Other long term (current) drug therapy; Z83.3 Family history of diabetes mellitus; Z83.438 Family history of other disorder of lipoprotein metabolism and other lipidemia; Z82.49 Family history of ischemic heart disease and other diseases of the circulatory system
CPT/HCPCS: 0241U; 36415; 36416; 36430; 36600; 71045; 74018; 74176; 74177; 74240; 80048; 80053; 80061; 80202; 82550; 82805; 83735; 84100; 84134; 85007; 85025; 85027; 85610; 85730; 86704; 86706; 86803; 86850; 86900; 86901; 87040; 87070; 87077; 87186; 87205; 87340; 90935; 93005; 93010; 93970; 94002; 94003; 94640; A4649; C1713; C1751; C1752; C1776; C9113; G0257; J0132; J0171; J0360; J0690; J1100; J1200; J1450; J1630; J1642; J1644; J1650; J1815; J1885; J1940; J2020; J2060; J2185; J2248; J2250; J2270; J2354; J2370; J2405; J2543; J2597; J2704; J3010; J3370; J3475; J3480; J3490; J7030; J7050; J7070; J7620; P9016; P9045; P9047; Q5105; Q9963; Q9967; S0020; S0028; U0003; U0005

== ENCOUNTER 2021-05-14 13:17 | Outpatient (CLI) | payer OTHER, MEDICAID ==
[2021-05-14 14:44] LABS: #Eosinphils 0.4 10x3/uL (0.0-0.5); #Monocytes 0.6 10x3/uL (0.0-1.1); #Neutrophils 5.5 10x3/uL (1.5-8.4); %Basophils 0.4 % (0.0-2.0); %Eosinophils 4.6 % (0.0-6.0); %Lymphocytes 29.6 % (18.0-47.0); %Monocytes 6.2 % (0.0-10.0); %Neutrophils 58.8 % (40.0-75.0); Hemoglobin 9.7 g/dL (12.0-15.5); Mean Corpuscular Hemoglobin 20.6 pg (27.0-33.0); Mean Corpuscular Volume 71.1 fl (81.6-98.3); Mean Platelet Volume 10.3 fl (7.4-10.4); Platelet Count 405 10x3/uL (150-450); RBC Distribution Width 16.9 % (11.5-14.5); White Blood Cell (WBC) Count 9.4 10x3/uL (3.5-10.5)
[2021-05-14 15:00] LABS: Hypochromia SLIGHT = 6-15 cells (100X) (0-5/hpf); Ovalocytes SLIGHT = 2-5 cells (100X) (0-1/hpf); Platelet Morphology Comment Appears Adequate
[2021-05-14 15:07] LABS: BHCG - Serum Negative (NEGATIVE); Pregs Control Background? CLEAR/WHITE (CLR/WHITE); Pregs Control Bar Appear? YES (CONTROL BAR)
[2021-05-14 15:15] LABS: ALT (SGPT) 11 U/L (8-55); AST (SGOT) 13 U/L (5-34); Albumin 3.8 g/dL (3.5-5.0); Alkaline Phosphatase 162 U/L (40-110); Anion Gap 13 mmol/L (10-20); BUN (Urea Nitrogen) 19 mg/dL (7.0-18.7); Bilirubin, Total 0.2 mg/dL (0.2-1.2); Calc. Creatinine Clearance 0 mL/min (70-130); Calcium 8.8 mg/dL (7.8-10.44); Carbon Dioxide 23 mmol/L (22-29); Chloride 105 mmol/L (98-107); Globulin 3.4 g/dL (2.4-3.5); Glucose 103 mg/dL (70-105); Protein, Total 7.2 g/dL (6.0-8.3); Sodium 137 mmol/L (136-145)
[2021-05-15 11:59] LABS: SARS-CoV-2 PCR by NAA Not Detected (NotDetected)
== END 2021-05-14 13:18 | disposition home or self-care (01) ==
LOC: LABBT 13:17
PROVIDERS: ATTEND Surgery
DX: Z01.818 Encounter for other preprocedural examination (principal); K21.9 Gastro-esophageal reflux disease without esophagitis; Z20.822 Contact with and (suspected) exposure to COVID-19
CPT/HCPCS: 71046; 80053; 83036; 84703; 85025; 93005; 93010; U0003; U0005

== ENCOUNTER 2021-10-29 12:22 | Outpatient (CLI) | payer BC, OTHER | END 2021-10-29 12:23 | disposition home or self-care (01) | LOC: BICMAMMO 12:22 | PROVIDERS: ATTEND Family Medicine | DX: Z12.31 Encounter for screening mammogram for malignant neoplasm of breast (principal); Z80.3 Family history of malignant neoplasm of breast | CPT/HCPCS: 77063; 77067 ==

== ENCOUNTER 2021-11-05 06:53 | Outpatient (CLI) | payer BC, OTHER | END 2021-11-05 06:54 | disposition home or self-care (01) | LOC: BICULT 06:53 | PROVIDERS: ATTEND Family Medicine | DX: R74.8 Abnormal levels of other serum enzymes (principal); Z90.49 Acquired absence of other specified parts of digestive tract | CPT/HCPCS: 76700 ==

== ENCOUNTER 2022-06-07 18:48 | Emergency (ER) | payer BC, OTHER ==
[~2022-06-07 18:48] MED LIST: GASTROGRAFIN 30 ML BOT ONE; Iopamidol-370 76% 500 ML 1 ML ONE
[2022-06-07] MEDS ORDERED: Ondansetron PF 4 MG/2 ML Vial ONE (19:21)
[2022-06-07] MEDS ORDERED: Morphine 4 MG/ML VIAL ONE ×2 (19:21→22:58)
[2022-06-07 19:32] LABS: #Eosinphils 0.2 thou/uL (0.0-0.7); #Lymphocytes 2.3 thou/uL (1.20-3.40); #Monocytes 0.6 thou/uL (0.11-0.59); #Neutrophils 3.9 thou/uL (1.40-6.50); %Basophils 0.3 % (0.0-1.0); %Eosinophils 2.8 % (0.0-10.0); %Lymphocytes 32.8 % (21.0-51.0); %Neutrophils 56.2 % (42.0-75.0); Hemoglobin 12.5 g/dL (12.0-16.0); Mean Corpuscular HGB CONC 31.3 g/dL (32.0-36.0); Mean Corpuscular Hemoglobin 24.7 pg (27.0-31.0); Mean Corpuscular Volume 78.9 fl (78.0-98.0); Mean Platelet Volume 10.7 fL (7.4-10.4); Platelet Count 214 10x3/uL (130-400); RBC Distribution Width 14.4 % (11.5-14.5); Red Blood Cell (RBC) Count 5.06 mill/uL (4.20-5.40)
[2022-06-07 19:53] LABS: ALT (SGPT) 32 U/L (8-55); AST (SGOT) 24 U/L (5-34); Alkaline Phosphatase 227 U/L (40-110); Anion Gap 11 mmol/L (10-20); BUN (Urea Nitrogen) 17 mg/dL (7.0-18.7); Bilirubin, Total 0.2 mg/dL (0.2-1.2); Calc. Creatinine Clearance 0 mL/min (70-130); Calcium 8.9 mg/dL (7.8-10.44); Carbon Dioxide 24 mmol/L (22-29); Chloride 107 mmol/L (98-107); Estimated GFR 98; Globulin 3.7 g/dL (2.4-3.5); Glucose 102 mg/dL (70-105); Lipase 28 U/L (8-78); Potassium 3.9 mmol/L (3.5-5.1); Protein, Total 7.7 g/dL (6.0-8.3); Sodium 138 mmol/L (136-145)
[2022-06-07 22:13] LABS: Bacteria/HPF 1+ HPF (None Seen); Bilirubin Negative (Negative); Blood, Urine Trace (Negative); Clarity Clear (Clear); Glucose, Urine (Dipstick) Normal (Negative); Ketone, Urine Negative (Negative); Leukocyte Negative Leu/uL (Negative); Mucous/LPF Rare LPF (<2+); Nitrite Negative (Negative); Protein, Urine (Dipstick) Negative (Neg-Trace); Specific Gravity, Urine 1.025 (1.002-1.036); Squamous Epithelial 0-3 HPF (0-3); Urobilinogen 6 mg/dL (Less than 2); pH, Urine 5.5 (5.0-9.0)
[2022-06-07 22:19] LABS: Specific Gravity 1.025 (1.002-1.036)
[2022-06-07 22:21] LABS: Pregnancy Test - Urine (BHCG) Negative (Negative); Pregu Control Background? CLEAR/WHITE (CLR/WHITE); Pregu Control Bar Appear? YES (CONTROL BAR)
== END 2022-06-08 01:02 | disposition home or self-care (01) ==
LOC: ERS 18:48
DX: R10.819 Abdominal tenderness, unspecified site (principal)
CPT/HCPCS: 74177; 80053; 81003; 81015; 81025; 83690; 85025; 96374; 96375; 96376; J2270; J2405